=== PATIENT | female | born 1945 | race African-American/Black ===

== ENCOUNTER 2020-10-22 15:51 | Emergency (ER) | payer OTHER ==
[2020-10-22 16:51] LABS: Absolute Lymphocytes (CBC) 1.9 K/uL (0.7-4.9); Basophils % 1.4 % (0-1.3); Lymphocytes % 41.6 % (15.3-44.8); MPV 8.8 fL (7.6-11.3); RBC Red Blood Cell Count 4.18 M/uL (3.86-4.86)
[2020-10-22 17:07] LABS: BUN Blood Urea Nitrogen 14 mg/dL (7-18); Bicarbonate 26 mmol/L (21-32); Glucose Level 97 mg/dL (74-106); Potassium 3.8 mmol/L (3.5-5.1); Sodium Level 141 mmol/L (136-145); Troponin (Emerg Dept Use Only) < 0.02 ng/mL (0.0-0.045)
--- NOTE | 2020-10-22 17:15 | ER ---
Nurse's Notes [facility] Name: Michael Kimball Age: 74 yrs Sex: Female : 1945 Arrival Date: 10/22/2020 Time: 15:55 Bed 25 Private MD: Diagnosis: Essential (primary) hypertension Presentation: 10/22 15:59 Chief complaint: Patient states: "i took my blood pressure at home and it was 201/101. jd3 no other symptoms.". Coronavirus screen: At this time, the client does not indicate any symptoms associated with coronavirus-19. Ebola Screen: Patient negative for fever greater than or equal to 101.5 degrees Fahrenheit, and additional compatible Ebola Virus Disease symptoms. Initial Sepsis Screen: Does the patient meet any 2 criteria? No. Patient's initial sepsis screen is negative. Does the patient have a suspected source of infection? No. Patient's initial sepsis screen is negative. Risk Assessment: Do you want to hurt yourself or someone else? Patient reports no desire to harm self or others. Onset of symptoms was October 22, 2020. 15:59 Method Of Arrival: Ambulatory jd3 15:59 Acuity: ANGELINA 3 jd3 Triage Assessment: 17:22 General: Behavior is calm. zb Historical: - Allergies: 16:01 BP meds that end with "prils"; jd3 16:01 Cipro PO; jd3 16:01 Clindamycin; jd3 16:01 Codeine; jd3 16:01 Hydrocodone-Acetaminophen; jd3 16:01 Indomethacin; jd3 16:01 Naproxen; jd3 16:01 Prevpac; jd3 16:01 Propoxyphene N-Acetaminophen; jd3 16:04 Celecoxib; jd3 16:04 tramadol; jd3 - PMHx: 16:01 Diabetes - IDDM; Diabetes - NIDDM; High Cholesterol; Hypertension; blood clot; jd3 - Immunization history:: Adult Immunizations up to date. - Social history:: Smoking status: Patient denies any tobacco usage or history of. Screenin:52 Abuse screen: Denies threats or abuse. Denies injuries from another. Nutritional zb screening: No deficits noted. Tuberculosis screening: No symptoms or risk factors identified. Fall Risk None identified. Assessment: 16:51 General: Appears in no apparent distress. comfortable. General: Denies fever, feeling zb ill, fatigue, chills. Pain: Denies pain. Neuro: Level of Consciousness is awake, alert, obeys commands, Denies weakness blurred vision dizziness, numbness headache photophobia diplopia. Cardiovascular: Heart tones S1 S2 present Capillary refill < 3 seconds Patient's skin is warm and dry. Cardiovascular: Rhythm is sinus bradycardia. Respiratory: Airway is patent Respiratory effort is even, unlabored, Respiratory pattern is regular, symmetrical, Breath sounds are clear bilaterally. GI: No signs and/or symptoms were reported involving the gastrointestinal system. Patient currently denies nausea. : No signs and/or symptoms were reported regarding the genitourinary system. EENT: No signs and/or symptoms were reported regarding the EENT system. Derm: Skin is intact, is healthy with good turgor, Skin is dry, Skin is normal, Skin temperature is warm. Musculoskeletal: Circulation, motion, and sensation intact. Capillary refill < 3 seconds, in bilateral Range of motion: intact in all extremities. 17:12 Reassessment: ECP at bedside. Vital Signs: 16:01 BP 210 / 80; Pulse 58; Resp 17 S; Temp 97.7(TE); Pulse Ox 98% on R/A; Weight 86.18 kg j (R); Height 5 ft. 4 in. (162.56 cm) (R); Pain 0/10; 16:39 BP 211 / 77; Pulse 48; Resp 14; Pulse Ox 99% on R/A; dh4 17:05 BP 188 / 76; Pulse 46; Resp 16; Pulse Ox 100% on R/A; zb 16:01 Body Mass Index 32.61 (86.18 kg, 162.56 cm) d3 ED Course: 15:55 Patient arrived in ED. ds1 16:00 Triage completed. jd3 16:01 [facility]C [facility] kb 16:01 Chai Garces MD is Attending Physician. kb 16:02 Arm band placed on. jd3 16:27 Fela Ornelas RN is Primary Nurse. zb 16:52 Patient has correct armband on for positive identification. liquor gallery operator on. Pulse zb ox on. NIBP on. Door closed. Noise minimized. 16:52 Placed in gown. Bed in low position. Call light in reach. Side rails up X 1. zb 17:22 No provider procedures requiring assistance completed. Patient did not have IV access zb during this emergency room visit. Administered Medications: No medications were administered Outcome: 17:14 Discharge ordered by . [email or web address] 17:23 Discharged to home ambulatory. zb 17:23 Condition: stable 17:23 Discharge instructions given to patient, Instructed on discharge instructions, follow up and referral plans. Demonstrated understanding of instructions, follow-up care. 17:28 Patient left the ED. zb Signatures: Ethel Perez, PROP ATTENDANT-C PROP ATTENDANT-Ckb Rosaline Gresham ds1 Ezra Gallardo RN RN Mark Navarro 4 Fela Ornelas RN RN zb Corrections: (The following items were deleted from the chart) 16:03 15:59 Acuity: ANGELINA 4 jd3 [id number]
--- NOTE | 2020-10-22 17:16 | EDPHYS ---
Physician Documentation [facility] Name: Michael Kimball Age: 74 yrs Sex: Female : 1945 Arrival Date: 10/22/2020 Time: 15:55 Bed 25 Private MD: ED Physician Chai Garces HPI: 10/22 17:28 This 74 yrs old Black Female presents to ER via Ambulatory with complaints of High kb Blood Pressure. 17:28 The patient has elevated blood pressure and discovered this at home, with a home kb device. Onset: The symptoms/episode began/occurred 2 month(s) ago. Associated signs and symptoms: The patient has no apparent associated signs or symptoms. Severity of symptoms: At its worst the blood pressure was 200 mm Hg. The patient has not experienced similar symptoms in the past. The patient has not recently seen a physician. Pt reports her blood pressure has been fluctuating since 08/30/20. States she saw Dr Santiago on 10/02/20 and he changed her meds from once daily to twice daily. Denies chest pain, dizziness, shortness of breath, headache. States she has no symptoms of high blood pressure. Historical: - Allergies: 16:01 BP meds that end with "prils"; jd3 16:01 Cipro PO; jd3 16:01 Clindamycin; jd3 16:01 Codeine; jd3 16:01 Hydrocodone-Acetaminophen; jd3 16:01 Indomethacin; jd3 16:01 Naproxen; jd3 16:01 Prevpac; jd3 16:01 Propoxyphene N-Acetaminophen; jd3 16:04 Celecoxib; jd3 16:04 tramadol; jd3 - PMHx: 16:01 Diabetes - IDDM; Diabetes - NIDDM; High Cholesterol; Hypertension; blood clot; jd3 - Immunization history:: Adult Immunizations up to date. - Social history:: Smoking status: Patient denies any tobacco usage or history of. ROS: 17:27 Constitutional: Negative for fever, chills, and weight loss, Cardiovascular: Negative kb for chest pain, palpitations, and edema, Respiratory: Negative for shortness of breath, cough, wheezing, and pleuritic chest pain, Abdomen/GI: Negative for abdominal pain, nausea, vomiting, diarrhea, and constipation, MS/Extremity: Negative for injury and deformity, Skin: Negative for injury, rash, and discoloration, Neuro: Negative for headache, weakness, numbness, tingling, and seizure. Exam: 17:27 Constitutional: This is a well developed, well nourished patient who is awake, alert, kb and in no acute distress. Head/Face: Normocephalic, atraumatic. Eyes: Pupils equal round and reactive to light, extra-ocular motions intact. Lids and lashes normal. Conjunctiva and sclera are non-icteric and not injected. Cornea within normal limits. Periorbital areas with no swelling, redness, or edema. Chest/axilla: Normal chest wall appearance and motion. Nontender with no deformity. No lesions are appreciated. Cardiovascular: Regular rate and rhythm with a normal S1 and S2. No gallops, murmurs, or rubs. Normal PMI, no JVD. No pulse deficits. Respiratory: Lungs have equal breath sounds bilaterally, clear to auscultation and percussion. No rales, rhonchi or wheezes noted. No increased work of breathing, no retractions or nasal flaring. Abdomen/GI: Soft, non-tender, with normal bowel sounds. No distension or tympany. No guarding or rebound. No evidence of tenderness throughout. Skin: Warm, dry with normal turgor. Normal color with no rashes, no lesions, and no evidence of cellulitis. MS/ Extremity: Pulses equal, no cyanosis. Neurovascular intact. Full, normal range of motion. Neuro: Awake and alert, GCS 15, oriented to person, place, time, and situation. Cranial nerves II-XII grossly intact. Motor strength 5/5 in all extremities. Sensory grossly intact. Cerebellar exam normal. Normal gait. Vital Signs: 16:01 BP 210 / 80; Pulse 58; Resp 17 S; Temp 97.7(TE); Pulse Ox 98% on R/A; Weight 86.18 kg jd3 (R); Height 5 ft. 4 in. (162.56 cm) (R); Pain 0/10; 16:39 BP 211 / 77; Pulse 48; Resp 14; Pulse Ox 99% on R/A; dh4 17:05 BP 188 / 76; Pulse 46; Resp 16; Pulse Ox 100% on R/A; zb 16:01 Body Mass Index 32.61 (86.18 kg, 162.56 cm) jd3 MDM: 16:04 Patient medically screened. kb 17:27 Data reviewed: vital signs, nurses notes. Data interpreted: Pulse oximetry: on room air kb is 100 %. Interpretation: normal. Counseling: I had a detailed discussion with the patient and/or guardian regarding: the historical points, exam findings, and any diagnostic results supporting the discharge/admit diagnosis, the need for outpatient follow up, a family practitioner, to return to the emergency department if symptoms worsen or persist or if there are any questions or concerns that arise at home. 17:33 Data reviewed: I have discussed the patient's presentation/case with the attending Emergency Department Physician;. 10/22 16:23 Order name: Troponin (emerg Dept Use Only); Complete Time: 17:10 kb 10/22 16:23 Order name: CBC with Diff; Complete Time: 16:57 kb 10/22 16:23 Order name: EKG; Complete Time: 16:23 kb 10/22 16:23 Order name: EKG - Nurse/Tech; Complete Time: 16:40 kb 10/22 16:23 Order name: Basic Metabolic Panel; Complete Time: 17:10 kb Administered Medications: No medications were administered Disposition: 18:36 Co-signature as Attending Physician, Chai Garces MD. rn Disposition: 10/22/20 17:14 Discharged to Home. Impression: Essential (primary) hypertension. - Condition is Stable. - Discharge Instructions: Hypertension, [id number]. - Medication Reconciliation Form, Thank You Letter, Antibiotic Education, Prescription Opioid Use form. - Follow up: Emergency Department; When: As needed; Reason: Worsening of condition. Follow up: Private Physician; When: 2 - 3 days; Reason: Recheck today's complaints, Continuance of care, Re-evaluation by your physician. Signatures: Dispatcher [employer] Ethel Morrison, BALLISTICS EXPERT FORENSIC-C BALLISTICS EXPERT FORENSIC-Ckb Chai Garces MD MD rn Davies, Jonathon, RN RN jd3 Brown, Zipporah, RN RN zb Corrections: (The following items were deleted from the chart) 17:28 17:14 10/22/2020 17:14 Discharged to Home. Impression: Essential (primary) zb hypertension. Condition is Stable. Forms are Medication Reconciliation Form, Thank You Letter, Antibiotic Education, Prescription Opioid Use. Follow up: Emergency Department; When: As needed; Reason: Worsening of condition. Follow up: Private Physician; When: 2 - 3 days; Reason: Recheck today's complaints, Continuance of care, Re-evaluation by your physician. kb
--- NOTE | 2020-10-23 22:28 | EKG ---
Test Date: 2020-10-22 Test Time: 16:25:30 Manager Intermediate: YASMEEN MEASUREMENT RESULTS: Intervals: Rate: 45 DC: 186 QRSD: 80 QT: 404 QTc: 349 [place]: P: 60 DC: 186 QRS: -12 T: 23 INTERPRETIVE STATEMENTS: Sinus bradycardia Minimal voltage criteria for LVH, may be normal variant Borderline ECG Compared to ECG 07/07/2017 03:50:26 Left ventricular hypertrophy now present First degree AV block no longer present Electronically Signed On 10-23-20 22:25:36 COMPUTER APPLICATIONS ENGINEER by Juan Manuel Gordon
== END 2020-10-22 17:28 | disposition home or self-care (01) ==
LOC: ER 15:51
DX: I10 Essential (primary) hypertension (principal); Z88.1 Allergy status to other antibiotic agents; Z88.4 Allergy status to anesthetic agent; Z88.5 Allergy status to narcotic agent; Z88.6 Allergy status to analgesic agent; Z88.8 Allergy status to other drugs, medicaments and biological substances
CPT/HCPCS: 36415; 80048; 84484; 85025; 93005; 99284

== ENCOUNTER 2022-10-02 00:03 | Emergency (ER) | payer OTHER ==
--- OUTSIDE RECORDS SUMMARY | 2022-10-02 00:09 | XMS REPORT | Continuity of Care Document ---
:1945 Author Organization [facility] t Address [address] [place] [address] Care Team Providers Name Role Phone Asked, No Pcp Primary Care Physician Unavailable Charanjit RG, Kimberly Mayer Attending Clinician Lai RG, Darrius Feng Attending Clinician [phone] Ayad RG, Star Attending Clinician Shaikh IFRAH, Kvng Attending Clinician DARRIUS ASHFORD Admitting Clinician Unavailable MD KIMBERLY DONOHUE Admitting Clinician Unavailable Payers Payer Name Policy Type Policy Number Effective Date Expiration Date S ource Problems Condition Condition Condition Status Onset Resolution Last Treating Co mments Source Name Details Category Date Date Treatment Clinician Date Urinary Urinary Disease Active Methodi tract tract 1- infection infection 00:00: Hosp yoan without without 00 l hematuria, hematuria, site site unspecifie unspecifie d d Allergies, Adverse Reactions, Alerts Allergy Allergy Status Severity Reaction(s) Onset Inactive Treating Comm ents Source Name Type Date Date Clinician Iodinate Propensi Active Other (See Me thodi d ty to Comments) 11-20 Contrast adverse 00:00: Hospita Media reaction 00 l s to drug Nsaids Propensi Active Other (See Meth jenniffer (Non-Lon ty to Comments) 11-20 roidal adverse 00:00: Hospita Anti-Inf reaction 00 l lammator s to y Drug) drug Sulfamet Propensi Active Other (See Hi thodi hoxazole ty to Comments) 11-20 -Trimeth adverse 00:00: Hospita oprim reaction 00 l s to drug Hydrocod Propensi Active GI 2018-08 Pt can Method i one-Acet ty to Intolerance 08-[address] aminophe adverse 00:00: as long Hospit a n reaction 00 as she l s to takes drug nausea medicine before taking it. Indometh Propensi Active Other (See 2018-08 Hi thodi acin ty to Comments) 08-28 adverse 00:00: Hospita reaction 00 l s to drug Lansopra Propensi Active Other (See 2018-08 Hi thodi zole ty to Comments) 08-28 adverse 00:00: Hospita reaction 00 l s to drug Lisinopr Propensi Active Other (See 2018-08 Hi thodi il ty to Comments) 08-28 adverse 00:00: Hospita reaction 00 l s to drug Naproxen Propensi Active Other (See 2018-08 Hi thodi ty to Comments) 08-28 adverse 00:00: Hospita reaction 00 l s to drug Propoxyp Propensi Active Other (See 2018-08 Hi thodi hene ty to Comments) 08-28 adverse 00:00: Hospita reaction 00 l s to drug Tramadol Propensi Active Other (See 2018-08 Hi thodi ty to Comments) 08-28 adverse 00:00: Hospita reaction 00 l s to drug Celecoxi Propensi Active Other (See 2018-08 Hi thodi b ty to Comments) 08-28 adverse 00:00: Hospita reaction 00 l s to drug Ciproflo Propensi Active Other (See 2018-08 Hi thodi xacin ty to Comments) 08-28 adverse 00:00: Hospita reaction 00 l s to drug Clarithr Propensi Active Other (See 2018-08 Hi thodi omycin ty to Comments) 08-28 adverse 00:00: Hospita reaction 00 l s to drug Clindamy Propensi Active Other (See 2018-08 Hi thodi jeffrey ty to Comments) 08-28 adverse 00:00: Hospita reaction 00 l s to drug Codeine Propensi Active Other (See Met hodi ty to Comments) 05-08 adverse 00:00: Hospita reaction 00 l s to drug Family History Family Member Diagnosis Comments Start Date Stop Date Source Natural father [facility] Natural mother Cancer [facility] Natural mother Hypertension [facility] Social History Social Habit Start Date Stop Date Quantity Comments Source Alcohol intake 2022-09-05 2022-09-05 [facility] (finding) Tobacco use and 2022-09-04 2022-09-04 Smokeless tobacco [facility]user [facility] Sex Ass[birth year] At [birth year] [facility] Smoking Status Start Date Stop Date Source Never smoked tobacco [facility] Medications Ordered Filled Start Stop Current Ordering Indication Dosage Frequency Signature Comments Components Source Medication Medication Date Date Medication? Clinician (SIG) Name Name cycloSPORIN Yes 1[drp] Q.5D Administer Methodi E 1-[address] (RESTASIS) 16:01: both eyes Ho spita 0.05 % 02 2 (two) l ophthalmic times a emulsion day. magnesium Yes 400mg Q.5D Take 1 Metho di oxide 1-[address] (MAG-OX) 16:01: (400 mg Hospit a 400 mg 02 total) by l (241.3 mg mouth 2 magnesium) (two) tablet times a day. insulin Yes 40U QD Inject 40 Metho di degludec 1-[address] (TRESIBA 16:01: under the Hosp yoan FLEXTOUCH 02 skin l U-100 SUBQ) nightly. L. Yes 1{tbl} QD Take 1 Methodi acidophilus 1-[address] /pectin, 16:01: mouth Hospita citrus 02 daily. l (ACIDOPHILU S PROBIOTIC ORAL) ascorbic Yes 1000mg QD Take 2 Metho di acid, 1-[address] vitamin C, 16:01: (1,000 mg Ho spita (VITAMIN C) 02 total) by l 500 MG mouth tablet daily. cholecalcif 0 Yes 5000U QD Take 1 Met hodi emile, 1-[address] vitamin D3, 16:01: (5,000 Hosp yoan (Vitamin 02 Units l D3) 125 mcg total) by (5,000 mouth unit) daily. tablet cycloSPORIN 0 Yes 1[drp] Q.5D Administer Methodi E -[address] (RESTASIS) 16:01: both eyes Ho spita 0.05 % 02 2 (two) l ophthalmic times a emulsion day. magnesium 2022-0 Yes 400mg Q.5D Take 1 Metho di oxide 1-[address] (MAG-OX) 16:01: (400 mg Hospit a 400 mg 02 total) by l (241.3 mg mouth 2 magnesium) (two) tablet times a day. insulin 0 Yes 40U QD Inject 40 Metho di degludec 1-[address] (TRESIBA 16:01: under the Hosp yoan FLEXTOUCH 02 skin l U-100 SUBQ) nightly. L. 2022-0 Yes 1{tbl} QD Take 1 Methodi acidophilus 1-[address] /pectin, 16:01: mouth Hospita citrus 02 daily. l (ACIDOPHILU S PROBIOTIC ORAL) ascorbic 0 Yes 1000mg QD Take 2 Metho di acid, 1-[address] vitamin C, 16:01: (1,000 mg Ho spita (VITAMIN C) 02 total) by l 500 MG mouth tablet daily. cholecalcif 0 Yes 5000U QD Take 1 Met hodi emile, 1-[address] vitamin D3, 16:01: (5,000 Hosp yoan (Vitamin 02 Units l D3) 125 mcg total) by (5,000 mouth unit) daily. tablet FLAXSEED 2022-0 2022- No 1200mg QD Take 1,200 Methodi ORAL 16 -[address] 16:01: 00:00 mouth Hospita 02 :00 daily. l fluticasone 2022-0 2022- No 50ug QD 1 spray Me thodi propionate 16 -15 ([address] (FLONASE) 16:01: 00:00 total) by Ho spita 50 02 :00 Each Nare l mcg/actuati route on nasal daily. spray HYDROcodone 2022-0 2022- [place] [id number] 1{tbl} Q6H Take 1 Methodi -acetaminop 16 -[address] hen (XODOL) 16:01: 00:00 mouth Hosp yoan 7.5-300 mg 02 :00 every 6 l per tablet (six) hours as needed for moderate pain .acute pain. As per patient, she's not allergic to it. She needs to take Nausea medicine before taking it. Max Daily Amount: 4 tablets indomethaci 2022-0 2022- No 50mg Q.5D Take 1 Met hodi n (INDOCIN) 16 -[address] 50 MG 16:01: 00:00 (50 mg Hospita capsule 02 :00 total) by l mouth 2 (two) times a day with meals. traMADoL 2022-0 2022- [place] [id number] 50mg Q6H Take 1 Metho di (ULTRAM) 50 09-0715 tablet (50 s t mg tablet 16:01: 00:00 mg total) Ho spita 02 :00 by mouth l every 6 (six) hours as needed for moderate pain .acute pain. FLAXSEED 2022- No 1200mg QD Take 1,200 Methodi ORAL 09-07-[address] 16:01: 00:00 mouth Hospita 02 :00 daily. l fluticasone 2022-2022- No 50ug QD 1 spray Me thodi propionate 09-0715 ([address] (FLONASE) 16:01: 00:00 total) by Ho spita 50 02 :00 Each Nare l mcg/actuati route on nasal daily. spray HYDROcodone 2022-2022- [place] [id number] 1{tbl} Q6H Take 1 Methodi -acetaminop 09-[address] hen (XODOL) 16:01: 00:00 mouth Hosp yoan 7.5-300 mg 02 :00 every 6 l per tablet (six) hours as needed for moderate pain .acute pain. As per patient, she's not allergic to it. She needs to take Nausea medicine before taking it. Max Daily Amount: 4 tablets indomethaci 2022-0 2022- No 50mg Q.5D Take 1 Met hodi n (INDOCIN) 16 -[address] 50 MG 16:01: 00:00 (50 mg Hospita capsule 02 :00 total) by l mouth 2 (two) times a day with meals. traMADoL 2022-2022- [place] [id number] 50mg Q6H Take 1 Metho di (ULTRAM) 50 09-07 tablet (50 s t mg tablet 16:01: 00:00 mg total) Ho spita 02 :00 by mouth l every 6 (six) hours as needed for moderate pain .acute pain. vitamin B 2022-2022- No Take by Meth jenniffer complex (B 09-[address] COMPLEX 1 16:01: 00:00 Hospita ORAL) 02 :00 l flaxseed 2022-0 2022- No Methodi oiL oil 09-07 st 16:01: 00:00 Hospita 02 :00 l FLUTICASONE 3-0 2023- No into each Methodi PROPIONATE 09-[address] NASL 16:01: 00:00 Hospita 02 :00 l tiZANidine 2022-0 2023- No 4mg Q8H Take 1 Meth jenniffer (ZANAFLEX) 09-07 tablet (4 st 4 MG tablet 16:01: 00:00 mg total) Hospita 02 :00 by mouth l every 8 (eight) hours as needed for muscle spasms. vitamin B 0 2022- No Take by Meth jenniffer complex (B 09-[address] COMPLEX 1 16:01: 00:00 Hospita ORAL) 02 :00 l flaxseed 2022-0 2022- No Methodi oiL oil 09-07 st 16:01: 00:00 Hospita 02 :00 l FLUTICASONE 2023-0 2023- No into each Methodi PROPIONATE 09-[address] NASL 16:01: 00:00 Hospita 02 :00 l tiZANidine 3-0 2023- No 4mg Q8H Take 1 Meth jenniffer (ZANAFLEX) 09-07 tablet (4 st 4 MG tablet 16:01: 00:00 mg total) Hospita 02 :00 by mouth l every 8 (eight) hours as needed for muscle spasms. HYDROcodone 2022-0 2022- No 1{tbl} Q6H Take 1 M ethodi -acetaminop 09-07 tablet by mk (XODOL) 16:01: 00:00 mouth Hosp yoan 7.5-300 mg 02 :00 Every 6 l per tablet hours while awake as needed (RT). Max Daily Amount: 4 tablets HYDROcodone 2022-0 2022- No 1{tbl} Q6H Take 1 M ethodi -acetaminop 1-16 -[address] hen (XODOL) 16:01: 00:00 mouth Hosp yoan 7.5-300 mg 02 :00 Every 6 l per tablet hours while awake as needed (RT). Max Daily Amount: 4 tablets magnesium 0 Yes 400mg Q.5D Take 1 Metho di oxide 1-[address] (MAG-OX) 08:52: (400 mg Hospit a 400 mg 15 total) by l (241.3 mg mouth 2 magnesium) (two) tablet times a day. insulin 0 Yes 40U QD Inject 40 Metho di degludec 1-[address] (TRESIBA 08:52: under the Hosp yoan FLEXTOUCH 15 skin l U-100 SUBQ) nightly. traMADoL 0 Yes [id number] 50mg Q6H Take 1 Method i (ULTRAM) 50 1-15 tablet (50 st mg tablet 08:52: mg total) Hos brenda 15 by mouth l every 6 (six) hours as needed for moderate pain .acute pain. L. 0 Yes 1{tbl} QD Take 1 Methodi acidophilus 1-[address] /pectin, 08:52: mouth Hospita citrus 15 daily. l (ACIDOPHILU S PROBIOTIC ORAL) FLAXSEED 0 Yes 1200mg QD Take 1,200 M ethodi ORAL 1-[address] 08:52: mouth Hospita 15 daily. l fluticasone 0 Yes 50ug QD 1 spray Met hodi propionate 1-15 ([address] (FLONASE) 08:52: total) by Hos brenda 50 15 Each Nare l mcg/actuati route on nasal daily. spray HYDROcodone 2022-0 Yes [id number] 1{tbl} Q6H Take 1 M ethodi -acetaminop 1-[address] hen (XODOL) 08:52: mouth Hospi ta 7.5-300 mg 15 every 6 l per tablet (six) hours as needed for moderate pain .acute pain. As per patient, she's not allergic to it. She needs to take Nausea medicine before taking it. Max Daily Amount: 4 tablets ascorbic 0 Yes 1000mg QD Take 2 Metho di acid, 1-[address] vitamin C, 08:52: (1,000 mg Ho spita (VITAMIN C) 15 total) by l 500 MG mouth tablet daily. cholecalcif Yes 5000U QD Take 1 Met hodi emile, 1-[address] vitamin D3, 08:52: (5,000 Hosp yoan (Vitamin 15 Units l D3) 125 mcg total) by (5,000 mouth unit) daily. tablet indomethaci Yes 50mg Q.5D Take 1 Meth jenniffer n (INDOCIN) 1-[address] 50 MG 08:52: (50 mg Hospita capsule 15 total) by l mouth 2 (two) times a day with meals. cycloSPORIN Yes 1[drp] Q.5D Administer Methodi E -[address] (RESTASIS) 08:52: both eyes Ho spita 0.05 % 15 2 (two) l ophthalmic times a emulsion day. carvediloL 2022- Yes 12.5mg Q.5D Take 1 Me thodi (COREG) -15 02-[address] 12.5 MG 00:00: 05:59 (12.5 mg Hospi ta tablet 00 :00 total) by l mouth 2 (two) times a day for 30 days. fluticasone 2022- Yes 50ug QD 1 spray Me thodi propionate 15 -15 ([address] (FLONASE) 00:00: 05:59 total) by Ho spita 50 00 :00 Each Nare l mcg/actuati route on nasal daily for spray 30 days. famotidine 2022- Yes 20mg Q.5D Take 1 Meth jenniffer (Pepcid) 20 -15 02-15 tablet (20 s t MG tablet 00:00: 05:59 mg total) Ho spita 00 :00 by mouth 2 l (two) times a day for 30 days. carvediloL 2022- Yes 12.5mg Q.5D Take 1 Me thodi (COREG) -15 02-[address] 12.5 MG 00:00: 05:59 (12.5 mg Hospi ta tablet 00 :00 total) by l mouth 2 (two) times a day for 30 days. fluticasone 2022-0 2022- Yes 50ug QD 1 spray Me thodi propionate 09-06-15 ([address] (FLONASE) 00:00: 05:59 total) by Ho spita 50 00 :00 Each Nare l mcg/actuati route on nasal daily for spray 30 days. famotidine 2022-0 2022- Yes 20mg Q.5D Take 1 Meth jenniffer (Pepcid) 20 -07 10-15 tablet (20 s t MG tablet 00:00: 05:59 mg total) Ho spita 00 :00 by mouth 2 l (two) times a day for 30 days. carvediloL 2022-2022- Yes 12.5mg Q.5D Take 1 Me thodi (COREG) 09-06-[address] 12.5 MG 00:00: 05:59 (12.5 mg Hospi ta tablet 00 :00 total) by l mouth 2 (two) times a day for 30 days. fluticasone 2022-0 2022- Yes 50ug QD 1 spray Me thodi propionate 09-0615 ([address] (FLONASE) 00:00: 05:59 total) by Ho spita 50 00 :00 Each Nare l mcg/actuati route on nasal daily for spray 30 days. famotidine 2022-0 2022- Yes 20mg Q.5D Take 1 Meth jenniffer (Pepcid) 20 09-06-15 tablet (20 s t MG tablet 00:00: 05:59 mg total) Ho spita 00 :00 by mouth 2 l (two) times a day for 30 days. methylPREDN 2022-0 2022- Yes follow Met hodi ISolone 09-[address] (Medrol, 00:00: 05:59 directions Ho spita Wenceslao,) 4 mg 00 :00 l tablet methylPREDN 2022-0 2022- Yes follow Met hodi ISolone 09-[address] (Medrol, 00:00: 05:59 directions Ho spita Wenceslao,) 4 mg 00 :00 l tablet methylPREDN 2022-2022- No follow Met hodi ISolone 09-[address] (Medrol, 00:00: 05:59 directions Ho spita Wenceslao,) 4 mg 00 :00 l tablet vitamin B 2022- No Take by Meth jenniffer complex (B 09-[address] COMPLEX 1 03:10: 00:00 Hospita ORAL) 02 :00 l tiZANidine 2022- No 4mg Q8H Take 1 Meth jenniffer (ZANAFLEX) 09-05 tablet (4 st 4 MG tablet 03:09: 00:00 mg total) Hospita 32 :00 by mouth l every 8 (eight) hours as needed for muscle spasms. FLUTICASONE 2022- No into each Methodi PROPIONATE 09-[address] NASL 02:54: 00:00 Hospita 30 :00 l flaxseed 2022- No Methodi oiL oil 09-05 st 02:53: 00:00 Hospita 52 :00 l HYDROcodone 2022- No 1{tbl} Q6H Take 1 M ethodi -acetaminop 09-[address] hen (XODOL) 01:40: 00:00 mouth Hosp yoan 7.5-300 mg 55 :00 Every 6 l per tablet hours while awake as needed (RT). Max Daily Amount: 4 tablets methylPREDN 2022-0 Yes 4mg Take 1 Meth jenniffer ISolone 09-04 tablet (4 st (MEDROL 00:00: mg total) Hospi ta DOSEPAK) 4 00 by mouth. l mg tablet Follow schedule on package instructio ns. methylPREDN 2022-0 2022- No 4mg Take 1 Met hodi ISolone 09-04 tablet (4 st (MEDROL 00:00: 00:00 mg total) Hosp yoan DOSEPAK) 4 00 :00 by mouth. l mg tablet Follow schedule on package instructio ns. methylPREDN 2022-0 2022- No 4mg Take 1 Met hodi ISolone 09-04 tablet (4 st (MEDROL 00:00: 00:00 mg total) Hosp yoan DOSEPAK) 4 00 :00 by mouth. l mg tablet Follow schedule on package instructio ns. colchicine 2021-08 Yes .6mg QD Take 1 Metho di 0.6 mg 2-[address] tablet 00:00: (0.6 mg Hospita 00 total) by l mouth daily. colchicine 2021-08- No .6mg QD Take 1 Meth jenniffer 0.6 mg 2-02 -[address] tablet 00:00: 00:00 (0.6 mg Hospita 00 :00 total) by l mouth daily. colchicine 2021-08- No .6mg QD Take 1 Meth jenniffer 0.6 mg 2-09 23-[address] tablet 00:00: 00:00 (0.6 mg Hospita 00 :00 total) by l mouth daily. allopurinoL 2021-08 Yes 300mg QD Take 1 Met hodi (ZYLOPRIM) 09-[address] 300 MG 00:00: (300 mg Hospita tablet 00 total) by l mouth daily. ibandronate 2021-08- Yes 150mg Q30D Take 1 Me thodi (BONIVA) 09-[address] 150 mg 00:00: 05:59 (150 mg Hospita tablet 00 :00 total) by l mouth every 30 (thirty) days. Take in the morning with full glass of water on an empty stomach. No food, drink, meds or lying down for 60 mins after. ibandronate 2021-08- Yes 150mg Q30D Take 1 Me thodi (BONIVA) 09-[address] 150 mg 00:00: 05:59 (150 mg Hospita tablet 00 :00 total) by l mouth every 30 (thirty) days. Take in the morning with full glass of water on an empty stomach. No food, drink, meds or lying down for 60 mins after. ibandronate 2021-08- Yes 150mg Q30D Take 1 Me thodi (BONIVA) 09-[address] 150 mg 00:00: 05:59 (150 mg Hospita tablet 00 :00 total) by l mouth every 30 (thirty) days. Take in the morning with full glass of water on an empty stomach. No food, drink, meds or lying down for 60 mins after. allopurinoL 2021-08- No 300mg QD Take 1 Me thodi (ZYLOPRIM) 09-[address] 300 MG 00:00: 00:00 (300 mg Hospita tablet 00 :00 total) by l mouth daily. allopurinoL 2021-08- No 300mg QD Take 1 Me thodi (ZYLOPRIM) 09-[address] 300 MG 00:00: 00:00 (300 mg Hospita tablet 00 :00 total) by l mouth daily. predniSONE 2021-08- No TAKE 4 Meth jenniffer (DELTASONE) 09-21 TABLETS BY s t 5 mg tablet 00:00: 00:00 MOUTH FOR Hospita 00 :00 3DAYS, l THEN 3 TABS FOR 3 DAYS, 2 TABS FOR 3 DAYS, THEN 1 TAB FOR 3 DAYS. predniSONE 2021-08- No TAKE 4 Meth jenniffer (DELTASONE) 09-21 TABLETS BY s t 5 mg tablet 00:00: 00:00 MOUTH FOR Hospita 00 :00 3DAYS, l THEN 3 TABS FOR 3 DAYS, 2 TABS FOR 3 DAYS, THEN 1 TAB FOR 3 DAYS. predniSONE 2021-08- No TAKE 4 Meth jenniffer (DELTASONE) 09-21 TABLETS BY s t 5 mg tablet 00:00: 00:00 MOUTH FOR Hospita 00 :00 3DAYS, l THEN 3 TABS FOR 3 DAYS, 2 TABS FOR 3 DAYS, THEN 1 TAB FOR 3 DAYS. ondansetron 2021-08 Yes 4mg Q8H Take 1 Meth jenniffer (ZOFRAN) 4 1-28 tablet (4 st MG tablet 00:00: mg total) Hos brenda 00 by mouth l every 8 (eight) hours as needed for nausea or vomiting. ondansetron 2021-08 Yes 4mg Q8H Take 1 Meth jenniffer (ZOFRAN) 4 1-28 tablet (4 st MG tablet 00:00: mg total) Hos brenda 00 by mouth l every 8 (eight) hours as needed for nausea or vomiting. ondansetron 2021-08 Yes 4mg Q8H Take 1 Meth jenniffer (ZOFRAN) 4 1-28 tablet (4 st MG tablet 00:00: mg total) Hos brenda 00 by mouth l every 8 (eight) hours as needed for nausea or vomiting. warfarin 2021-08 Yes 4mg QD Take 1 Methodi (COUMADIN) 1-17 tablet (4 st 4 MG tablet 00:00: mg total) H ospita 00 by mouth l daily. warfarin 2021-08 Yes 4mg QD Take 1 Methodi (COUMADIN) 1-17 tablet (4 st 4 MG tablet 00:00: mg total) H ospita 00 by mouth l daily. warfarin 2021-08 Yes 4mg QD Take 1 Methodi (COUMADIN) 1-17 tablet (4 st 4 MG tablet 00:00: mg total) H ospita 00 by mouth l daily. carvediloL 2021-08 Yes 12.5mg Q.5D Take 1 Met hodi (COREG) 1-[address] 12.5 MG 00:00: (12.5 mg Hospit a tablet 00 total) by l mouth 2 (two) times a day with meals. carvediloL 2021-08- No 12.5mg Q.5D Take 1 Me thodi (COREG) 1-14 -[address] 12.5 MG 00:00: 00:00 (12.5 mg Hospi ta tablet 00 :00 total) by l mouth 2 (two) times a day with meals. carvediloL 2021-08- No 12.5mg Q.5D Take 1 Me thodi (COREG) 1-14 -[address] 12.5 MG 00:00: 00:00 (12.5 mg Hospi ta tablet 00 :00 total) by l mouth 2 (two) times a day with meals. pravastatin 2021-08 Yes 40mg QD Take 1 Meth jenniffer (PRAVACHOL) 0-25 tablet (40 st 40 mg 00:00: mg total) Hospita tablet 00 by mouth l every evening. pravastatin 2021-08 Yes 40mg QD Take 1 Meth jenniffer (PRAVACHOL) 0-25 tablet (40 st 40 mg 00:00: mg total) Hospita tablet 00 by mouth l every evening. pravastatin 2021-08 Yes 40mg QD Take 1 Meth jenniffer (PRAVACHOL) 0-25 tablet (40 st 40 mg 00:00: mg total) Hospita tablet 00 by mouth l every evening. spironolact 2021-08 Yes 25mg QD Take 1 Meth jenniffer one 0-24 tablet (25 st (ALDACTONE) 00:00: mg total) H ospita 25 MG 00 by mouth l tablet daily. spironolact 2021- Yes 25mg QD Take 1 Meth jenniffer one 0-24 tablet (25 st (ALDACTONE) 00:00: mg total) H ospita 25 MG 00 by mouth l tablet daily. spironolact 2021- Yes 25mg QD Take 1 Meth jenniffer one 0-24 tablet (25 st (ALDACTONE) 00:00: mg total) H ospita 25 MG 00 by mouth l tablet daily. NIFEdipine 2021-0 2022- No 30mg QD Take 1 Meth jenniffer ER 8-24 08-25 tablet (30 st (PROCARDIA- 00:00: 04:59 mg total) Hospita XL) 30 MG 00 :00 by mouth l 24 hr daily. tablet NIFEdipine 2021-0 2022- No 30mg QD Take 1 Meth jenniffer ER 8- 08-25 tablet (30 st (PROCARDIA- 00:00: 04:59 mg total) Hospita XL) 30 MG 00 :00 by mouth l 24 hr daily. tablet NIFEdipine 2021-0 2022- No 30mg QD Take 1 Meth jenniffer ER 8-24 08-25 tablet (30 st (PROCARDIA- 00:00: 04:59 mg total) Hospita XL) 30 MG 00 :00 by mouth l 24 hr daily. tablet furosemide 2021-0 Yes 40mg QD Take 1 Metho di (LASIX) 40 5-09 tablet (40 st mg tablet 00:00: mg total) Hos brenda 00 by mouth l daily. furosemide 2021-0 Yes 40mg QD Take 1 Metho di (LASIX) 40 5-09 tablet (40 st mg tablet 00:00: mg total) Hos brenda 00 by mouth l daily. furosemide 2021-0 Yes 40mg QD Take 1 Metho di (LASIX) 40 5-09 tablet (40 st mg tablet 00:00: mg total) Hos brenda 00 by mouth l daily. telmisartan 2020-0 Yes 80mg QD Take 1 Meth jenniffer (MICARDIS) 3-03 tablet (80 st 80 MG 00:00: mg total) Hospita tablet 00 by mouth l daily. telmisartan 2020-0 Yes 80mg QD Take 1 Meth jenniffer (MICARDIS) 3-03 tablet (80 st 80 MG 00:00: mg total) Hospita tablet 00 by mouth l daily. telmisartan Yes 80mg QD Take 1 Meth jenniffer (MICARDIS) 3-03 tablet (80 st 80 MG 00:00: mg total) Hospita tablet 00 by mouth l daily. Vital Signs Vital Name Observation Time Observation Value Comments Source Systolic blood 2022-09-06 13:56:42 118 mm[Hg] [facility] pressure Diastolic blood 2022-09-06 13:56:42 60 mm[Hg] [facility] pressure Heart rate 2022-09-06 13:56:42 61 /min [facility] Body temperature 2022-09-06 13:56:42 36.39 Radha [facility] Respiratory rate 2022-09-06 13:56:42 16 /min [facility] Oxygen saturation in 2022-09-06 13:56:42 100 /min [facility] Arterial blood by Pulse oximetry Body weight 2022-09-06 11:00:00 74.027 kg [facility] BMI 2022-09-06 11:00:00 28.01 kg/m2 [facility] Body height 2022-09-05 08:45:00 162.6 cm [facility] Procedures Procedure Date / Time Performing Clinician Source Performed COMPREHENSIVE METABOLIC 2022-09-06 12:10:00 Kvng Cleary [facility] PANEL ESTIMATED GFR 2022-09-06 12:10:00 Kvng Cleary spital MAGNESIUM LEVEL 2022-09-06 12:10:00 Kvng Cleary Ho spital PHOSPHORUS LEVEL 2022-09-06 12:10:00 Kvng Cleary ospital CBC WITH PLATELET AND 2022-09-06 10:27:00 [facility] DIFFERENTIAL PROTHROMBIN TIME WITH INR 2022-09-06 10:27:00 Star Lion [facility] CBC WITH PLATELET AND 2022-09-06 10:27:00 Star Lion [facility] DIFFERENTIAL ESTIMATED GFR 2022-09-06 10:19:00 Star Lion Ho spital POC GLUCOSE 2022-09-06 01:56:00 Kvng Cleary Ho spital POC GLUCOSE 2022-09-05 23:38:00 Kvng Cleary spital TROPONIN T 2022-09-05 18:06:00 [facility] spital POC GLUCOSE 2022-09-05 17:25:00 Kvng Clearytal US HEPATIC 2022-09-05 14:42:23 [facility] Ho spital POC GLUCOSE 2022-09-05 13:42:00 Kvng Cleary spital URIC ACID LEVEL 2022-09-05 12:34:00 Star Lion spital PHOSPHORUS LEVEL 2022-09-05 12:34:00 [facility] H ospital TROPONIN T 2022-09-05 12:34:00 [facility] spital COMPREHENSIVE METABOLIC 2022-09-05 12:34:00 Star Lion [facility] PANEL ESTIMATED GFR 2022-09-05 12:34:00 Star Lion spital MAGNESIUM LEVEL 2022-09-05 12:34:00 [facility] spital ESTIMATED GFR 2022-09-05 12:30:00 [facility] spital POC GLUCOSE 2022-09-05 09:16:00 [facility] spital ACUTE VIRAL HEPATITIS 2022-09-05 09:11:00 Star [facility] PANEL (HAV, HBV, HCV) AMMONIA LEVEL 2022-09-05 09:04:00 Star Lion spital CBC WITH PLATELET AND 2022-09-05 09:02:00 Star [facility] DIFFERENTIAL PROTHROMBIN TIME WITH INR 2022-09-05 09:02:00 Star Lion [facility] MANUAL DIFFERENTIAL 2022-09-05 09:02[facility] 2022-09-05 08:45:00 [facility] URINE CULTURE 2022-09-05 03:36:00 [facility] URINALYSIS 2022-09-05 03:36:00 [facility]OL[facility] 2022-09-05 02:52:00 Kimberly [facility] PANEL CREATINE KINASE, TOTAL 2022-09-05 02:52:00 [facility] TROPONIN, I-STAT 2022-09-05 02:52:00 [facility] B NATRIURETIC PEP, I-STAT 2022-09-05 02:52:00 Kimberly Donohue [facility] CBC WITH PLATELET AND 2022-09-05 02:52:00 [facility] DIFFERENTIAL AMYLASE LEVEL 2022-09-05 02:52:00 sada Kimberly [facility] ESTIMATED GFR 2022-09-05 02:52:00 Charanjit [facility] MANUAL DIFFERENTIAL 2022-09-05 02:52:00 Kimberly Donohue [facility] COVID-19, INFLUENZA A&B, 2022-09-05 02:50:00 Kimberly Donohue [facility] AND RSV QUALITATIVE RT-PCR XR CHEST 1 VW PORTABLE 2022-09-05 02:47:45 [facility]ARY 2022-09-05 02:30:54 Kimberly Donohue Met [facility] INTERPRETATION ECG 12-LEAD 2022-09-04 02:32:07 [facility] Plan of Care Planned Activity Planned Date Details Comments Source Future Scheduled 2022-10-02 SHINGLES VACCINES (1 Met [facility] Test 00:06:34 of 2) [code = SHINGLES VACCINES (1 of 2)] Future Scheduled 2022-10-02 HEPATITIS B VACCINES Met [facility] Test 00:06:34 (1 of 3 - Risk 3-dose series) [code = HEPATITIS B VACCINES (1 of 3 - Risk 3-dose series)] Future Scheduled 2022-10-02 65+ [facility]OC[facility] [facility] Test 00:06:34 VACCINE (2 - PPSV23 if available, else PCV20) [code = 65+ PNEUMOCOCCAL VACCINE (2 - PPSV23 if available, else PCV20)] Future Scheduled 2022-10-02 COVID-19 VACCINE (4 - [facility] Hospital Test 00:06:34 Booster for Moderna series) [code = COVID-19 VACCINE (4 - Booster for Moderna series)] Future Scheduled 2022-10-02 INFLUENZA VACCINE Method [facility] Hospital Test 00:06:34 [code = INFLUENZA VACCINE] Future Scheduled 2022-09-07 SHINGLES VACCINES (1 Met [facility] Test 02:23:11 of 2) [code = SHINGLES VACCINES (1 of 2)] Future Scheduled 2022-09-07 HEPATITIS B VACCINES Met [facility] Test 02:23:11 (1 of 3 - Risk 3-dose series) [code = HEPATITIS B VACCINES (1 of 3 - Risk 3-dose series)] Future Scheduled 2022-09-07 65+ [facility] 02:23:11 VACCINE (2 - PPSV23 if available, else PCV20) [code = 65+ PNEUMOCOCCAL VACCINE (2 - PPSV23 if available, else PCV20)] Future Scheduled 2022-09-07 COVID-19 VACCINE (4 - [facility] Hospital Test 02:23:11 Booster for Moderna series) [code = COVID-19 VACCINE (4 - Booster for Moderna series)] Future Scheduled 2022-09-07 INFLUENZA VACCINE Method [facility] Test 02:23:11 [code = INFLUENZA VACCINE] Future Scheduled 2022-09-06 SHINGLES VACCINES (1 Met [facility] Test 00:43:45 of 2) [code = SHINGLES VACCINES (1 of 2)] Future Scheduled 2022-09-06 65+ [facility] 00:43:45 VACCINE (2 - PPSV23 if available, else PCV20) [code = 65+ PNEUMOCOCCAL VACCINE (2 - PPSV23 if available, else PCV20)] Future Scheduled 2022-09-06 COVID-19 VACCINE (4 - [facility] Hospital Test 00:43:45 Booster for Moderna series) [code = COVID-19 VACCINE (4 - Booster for Moderna series)] Future Scheduled 2022-09-06 INFLUENZA VACCINE Method [facility] Test 00:43:45 [code = INFLUENZA VACCINE] Encounters Start End Encounter Admission Attending Care Care Encounter Source Date/Time Date/Time Type Type Clinicians Facility Department ID 2022-09-04 2022-09-06 Emergency Kimberly Donohue Moreno 1.2.840.1 [id number] Methodi 20:08:00 16:01:00 Darrius Ashford [id number] [id number] .8 2022-09-04 2022-09-06 Emergency Kimberly Donohue Moreno 1.2.840.1 [id number] Methodi 20:08:00 16:01:00 Darrius Ashford [id number] 185 [facility] [place] 3.430.2.7 [facility] .[id number] [facility] .8 2022-09-06 2022-09-06 Travel 1.2.840.1 [id number] [id number] Methodi 00:00:00 00:00:[address] 3.430.2.7 0.2.7.3.698 Ho spita .[id number] 084.8 l .8 2022-09-06 2022-09-06 Travel 1.2.840.1 1.2.853.837 [id number] Methodi 00:00:00 00:00:[address] 3.430.2.7 0.2.7.3.698 Ho spita .3.618340 084.8 l .8 2022-09-04 2022-09-04 Travel 1.2.840.1 1.2.521.569 [id number] Methodi 00:00:00 00:00:[address] 3.430.2.7 0.2.7.3.698 Ho spita .3.457778 084.8 l .8 2022-09-04 2022-09-04 Travel 1.2.840.1 1.2.701.737 [id number] Methodi 00:00:00 00:00:[address] 3.430.2.7 0.2.7.3.698 Ho spita .3.483039 084.8 l .8 Results Test Description Test Time Test Comments Results Result Comments Source POC glucose 2022-09-06 01:57:00 Test Item Value Reference Range Interpretation Comme nts POC glucose (test code = 190 mg/dL 65-99 H Ope rator Name: Lupe Yun [id number]) ([place])-PCADevi ce ID: [id number] able: RN Notified Lab Interpretation (test code = Abnormal 52077-0) [facility] [id number] 01:57:00 Test Item Value Reference Range Interpretation Comments POC glucose (test code = 190 mg/dL 65-99 H Ope rator Name: [id number]) Lupe Yun ([place])-PCADevi ce ID: [id number] able: RN Notified Lab Interpretation (test Abnormal code = 65630-1) [facility] [id number] 01:57:00 Test Item Value Reference Range Interpretation Comments POC glucose (test code = 190 mg/dL 65-99 H Ope rator Name: [id number]) Onrolly Yun ([place])-PCADevi ce ID: [id number] able: RN Notified Lab Interpretation (test Abnormal code = 49147-2) [facility] 12 [id number] 13:14:37 Test Item Value Reference Range Interpretation Comments Ventricular rate 83 (test code = 253) Atrial rate (test 83 code = 255) PA interval (test 178 code = 266) QRSD interval (test 86 code = 260) QT interval (test 340 code = 264) QTC interval (test 399 code = 265) P axis 1 (test code = 84 267) QRS axis 1 (test code -8 = 268) T wave axis (test 33 code = 270) EKG impression (test Normal sinus rhythm-Low code = 273) voltage QRS-Borderline ECG-No previous ECGs available- [address]2023-01-14 13:14:37 Test Item Value Reference Range Interpretation Comments Ventricular rate (test code = 253) Atrial rate (test code = 255) PA interval (test code = 266) QRSD interval (test code = 260) QT interval (test code = 264) QTC interval (test code = 265) P axis 1 (test code = 267) QRS axis 1 (test code = 268) T wave axis (test code = 270) EKG impression (test Normal sinus rhythm-Low code = 273) voltage QRS-Borderline ECG-No previous ECGs available- [address]2023-01-14 13:14:37 Test Item Value Reference Range Interpretation Comments Ventricular rate (test code = 253) Atrial rate (test code = 255) PA interval (test code = 266) QRSD interval (test code = 260) QT interval (test code = 264) QTC interval (test code = 265) P axis 1 (test code = 267) QRS axis 1 (test code = 268) T wave axis (test code = 270) EKG impression (test Normal sinus rhythm-Low code = 273) voltage QRS-Borderline ECG-No previous ECGs available- [facility] ED Preliminary Interpretation - Not an [id number] 02:30:54 Test Item Value Reference Range Interpretation Comments TERRANCE (test code = TERRANCE) Kimberly Donohue MD 09/05/2022 1:50 [facility] ED Preliminary Interpretation - Not an OrderPerformed by: Kimberly Donohue MDAuthorized by: Kimberly Donohue MD ECG reviewed by ED Physician in the absence of a supervisor webbing: yes Interpretation: Interpretation: abnormal Rate: ECG rate: 83 ECG rate assessment: normal Rhythm: Rhythm: sinus rhythm Ectopy: Ectopy: none QRS: QRS axis: Left QRS intervals: NormalConduction: Conduction: normal ST segments: ST segments: NormalT waves: T waves: normal Comments: PA 178. QRS 86. QTc 399. Lab Interpretation Abnormal (test code = 77197-2) [facility] Preliminary Interpretation - Not an [id number] 02:30:54 Test Item Value Reference Range Interpretation Comments TERRANCE (test code = TERRANCE) Kimberly Donohue MD 09/05/2022 1:50 [facility] ED Preliminary Interpretation - Not an OrderPerformed by: Kimberly Donohue MDAuthorized by: Kimberly Donohue MD ECG reviewed by ED Physician in the absence of a supervisor webbing: yes Interpretation: Interpretation: abnormal Rate: ECG rate: 83 ECG rate assessment: normal Rhythm: Rhythm: sinus rhythm Ectopy: Ectopy: none QRS: QRS axis: Left QRS intervals: NormalConduction: Conduction: normal ST segments: ST segments: NormalT waves: T waves: normal Comments: PA 178. QRS 86. QTc 399. Lab Interpretation Abnormal (test code = 92119-5) [facility] Preliminary Interpretation - Not an [id number] 02:30:54 Test Item Value Reference Range Interpretation Comments TERRANCE (test code = TERRANCE) Kimberly Donohue MD 09/05/2022 1:50 [facility] ED Preliminary Interpretation - Not an OrderPerformed by: Kimberly Donohue MDAuthorized by: Kimberly Donohue MD ECG reviewed by ED Physician in the absence of a supervisor webbing: yes Interpretation: Interpretation: abnormal Rate: ECG rate: 83 ECG rate assessment: normal Rhythm: Rhythm: sinus rhythm Ectopy: Ectopy: none QRS: QRS axis: Left QRS intervals: NormalConduction: Conduction: normal ST segments: ST segments: NormalT waves: T waves: normal Comments: PA 178. QRS 86. QTc 399. Lab Interpretation Abnormal (test code = 06538-1) [facility] [id number] 21:31:31 Test Item Value Reference Range Interpretation Comments SARS-CoV-2 (COVID-19) RNA Not detected [Presence] in Respiratory specimen by EFRAIN with probe detection (test code = 21927-0) Whether patient resides in a No congregate care setting (test code = 71681-3) Date and time of symptom onset Unknown (test code = 28341-6) Whether the patient was No hospitalized for condition of interest (test code = 45087-1) Whether the patient was admitted No to intensive care unit (ICU) for condition of interest (test code = 91885-7) Whether patient is employed in a No healthcare setting (test code = 08269-1) Whether the patient has symptoms No related to condition of interest (test code = 23406-6) status (test code = No 34635-5) [facility]
[2022-10-02] MEDS ORDERED: dexAMETHasone 10 MG/ML VIAL ONE (01:20)
[2022-10-02] MEDS ORDERED: COLCHICINE 0.6 MG TAB ONE (01:20)
[2022-10-02] MEDS ORDERED: KETOROLAC 30 MG/ML INJ ONE (01:20)
--- NOTE | 2022-10-02 02:26 | EDPHYS ---
Physician Documentation [facility] Name: Michael Kimball Age: 76 yrs Sex: Female : 1945 Arrival Date: 10/02/2022 Time: 00:32 Bed 7 Private MD: ED Physician Chai Garces HPI: 10/02 01:07 This 76 yrs old Black Female presents to ER via EMS with complaints of Foot Pain. rn 01:07 The patient presents with pain, that is acute. The complaints affect the left foot, rn right foot. Onset: The symptoms/episode began/occurred 1 week(s) ago. Modifying factors: The symptoms are alleviated by nothing, the symptoms are aggravated by movement. Associated signs and symptoms: Pertinent negatives: fever, weakness. Severity of symptoms: At their worst the symptoms were moderate, in the emergency department the symptoms are unchanged. The patient has experienced similar episodes in the past. The patient has not recently seen a physician. Pt with hx of gout, has had multiple gout attacks in past, reports pain in both feet for the last week. No trauma. No fever. NO skin changes. . Historical: - Allergies: 00:52 BP meds that end with "prils"; vc1 00:52 Celecoxib; vc1 00:52 Cipro PO; vc1 00:52 Clindamycin; vc1 00:52 Codeine; vc1 00:52 Hydrocodone-Acetaminophen; vc1 00:52 Indomethacin; vc1 00:52 Naproxen; vc1 00:52 Prevpac; vc1 00:52 Propoxyphene N-Acetaminophen; vc1 00:52 tramadol; vc1 00:52 Clarithromycin; vc1 - PMHx: 00:52 blood clot; Diabetes - IDDM; High Cholesterol; Diabetes - NIDDM; Hypertension; vc1 - Immunization history:: Adult Immunizations not up to date. - Social history:: Smoking status: Patient denies any tobacco usage or history of. - Family history:: not pertinent. - Hospitalizations: : No recent hospitalization is reported. ROS: 01:07 Constitutional: Negative for fever, chills, and weight loss, Eyes: Negative for injury, rn pain, redness, and discharge, Cardiovascular: Negative for chest pain, palpitations, and edema, Respiratory: Negative for shortness of breath, cough, wheezing, and pleuritic chest pain, Abdomen/GI: Negative for abdominal pain, nausea, vomiting, diarrhea, and constipation, Back: Negative for injury and pain, MS/Extremity: + pain in both feet Skin: Negative for injury, rash, and discoloration, Neuro: Negative for headache, weakness, numbness, tingling, and seizure. Exam: 01:07 Constitutional: This is a well developed, well nourished patient who is awake, alert, rn and in no acute distress. Cardiovascular: Regular rate and rhythm. No pulse deficits. Respiratory: No increased work of breathing, no retractions or nasal flaring. Skin: Warm, dry MS/ Extremity: Pulses equal, no cyanosis. Neurovascular intact. Full, normal range of motion. Equal circumference. No focal swelling or skin changes. Mild painful ROM bilateral great toes and ankles. Neuro: Awake and alert, GCS 15 Vital Signs: 00:50 BP 115 / 74; Pulse 86; Resp 17; Temp 98.5; Pulse Ox 100% ; Weight 73.94 kg; Height 5 vc1 ft. 4 in. (162.56 cm); Pain 10/10; 01:30 BP 114 / 53; Pulse 88; Resp 18; Pulse Ox 100% on R/A; vc1 01:30 BP 107 / 54; Pulse 83; Resp 17; Pulse Ox 99% ; vc1 00:50 Body Mass Index 27.98 (73.94 kg, 162.56 cm) vc1 MDM: 00:36 Patient medically screened. rn 02:23 Differential diagnosis: arthritis, gout. Data reviewed: vital signs, nurses notes, old rn medical records, and as a result, I will discharge patient. Counseling: I had a detailed discussion with the patient and/or guardian regarding: the historical points, exam findings, and any diagnostic results supporting the discharge/admit diagnosis, the need for outpatient follow up, to return to the emergency department if symptoms worsen or persist or if there are any questions or concerns that arise at home. Response to treatment: the patient's symptoms have markedly improved after treatment, and as a result, I will discharge patient. Special discussion: I discussed with the patient/guardian in detail that at this point there is no indication for admission to the hospital. It is understood, however, that if the symptoms persist or worsen the patient needs to return immediately for re-evaluation. ED course: Pt improved, sleeping comfortably, stable vitals, will dc home with pcp f/u and return precautions. Pt states usually steroid taper help.. 04:04 ED course: Pt ambulatory in room, feels much better. Family called and wants her urine rn checked for possible UTI. Ordered UA. Family concerned because has been exhibiting signs of dementia, stays with son who works long hours and they are concerned about her taking care of herself. Explained to them that would not be admitted for gout as she feels better and cannot be fixed with admission. . 04:17 ED course: Urine neg for UTI. Son here to pick her up, explained everything to son as rn well as brother. Pt becoming more elderly and experiencing the difficulties taking care of herself. Son states has home health come out but only once a week at this time. Recommend pcp f/u and for family to discuss custodial plans for their mother's care. . 10/02 04:13 Order name: Urine Dipstick-Ancillary EDMS Administered Medications: 01:22 Drug: Decadron (dexamethasone) 10 mg Route: IM; Site: left deltoid; vc1 02:49 Follow up: Response: No adverse reaction; Marked relief of symptoms; Pain is decreased vc1 01:23 Drug: Colcrys (colchicine) 1.2 mg Route: PO; vc1 02:50 Follow up: Response: No adverse reaction; Marked relief of symptoms; Pain is decreased vc1 01:23 Drug: Ketorolac 15 mg Route: IM; Site: right deltoid; vc1 02:50 Follow up: Response: No adverse reaction; Marked relief of symptoms; Pain is decreased vc1 Disposition Summary: 10/02/22 02:25 Discharge Ordered Location: Home rn Problem: chronic rn Symptoms: have improved rn Condition: Stable rn Diagnosis - Gout, unspecified rn - Idiopathic gout, left ankle and foot rn - Idiopathic gout, right ankle and foot rn Followup: rn - With: Private Physician - When: As needed - Reason: Recheck today's complaints, Re-evaluation by your physician Discharge Instructions: - Discharge Summary Sheet rn - Gout rn Forms: - Medication Reconciliation Form rn - Thank You Letter rn - 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
--- NOTE | 2022-10-02 02:26 | ER ---
Nurse's Notes [facility] Name: Michael Kimball Age: 76 yrs Sex: Female : 1945 Arrival Date: 10/02/2022 Time: 00:32 Bed 7 Private MD: Diagnosis: Gout, unspecified;Idiopathic gout, left ankle and foot;Idiopathic gout, right ankle and foot Presentation: 10/02 00:50 Chief complaint: Patient states: "Both my feet hurt, they feel just like it does when vc1 my gout is bothering me.". Coronavirus screen: Vaccine status: Patient reports receiving the 2nd dose of the covid vaccine. Plus booster; Moderna. Ebola Screen: Patient negative for fever greater than or equal to 101.5 degrees Fahrenheit, and additional compatible Ebola Virus Disease symptoms Patient denies exposure to infectious person. Patient denies travel to an Ebola-affected area in the 21 days before illness onset. No symptoms or risks identified at this time. Initial Sepsis Screen: Does the patient meet any 2 criteria? No. Patient's initial sepsis screen is negative. Does the patient have a suspected source of infection? No. Patient's initial sepsis screen is negative. Risk Assessment: Do you want to hurt yourself or someone else? Patient reports no desire to harm self or others. Onset of symptoms was September 27, 2022. 00:50 Method Of Arrival: [facility] vc1 00:50 Acuity: ANGELINA 4 vc1 Triage Assessment: 02:45 General: Appears in no apparent distress. uncomfortable, Behavior is calm, cooperative, vc1 appropriate for age. Pain: Complains of pain in right foot and left foot Pain does not radiate. Pain currently is 10 out of 10 on a pain scale. EENT: No deficits noted. No signs and/or symptoms were reported regarding the EENT system. Neuro: Level of Consciousness is awake, alert, obeys commands, Oriented to person, place, time, situation, Appropriate for age. Cardiovascular: No deficits noted. Respiratory: Airway is patent Respiratory effort is even, unlabored, Respiratory pattern is regular, symmetrical. GI: No deficits noted. No signs and/or symptoms were reported involving the gastrointestinal system. : No deficits noted. No signs and/or symptoms were reported regarding the genitourinary system. Derm: No deficits noted. No signs and/or symptoms reported regarding the dermatologic system. Musculoskeletal: Reports pain in right foot and left foot. Historical: - Allergies: 00:52 BP meds that end with "prils"; vc1 00:52 Celecoxib; vc1 00:52 Cipro PO; vc1 00:52 Clindamycin; vc1 00:52 Codeine; vc1 00:52 Hydrocodone-Acetaminophen; vc1 00:52 Indomethacin; vc1 00:52 Naproxen; vc1 00:52 Prevpac; vc1 00:52 Propoxyphene N-Acetaminophen; vc1 00:52 tramadol; vc1 00:52 Clarithromycin; vc1 - PMHx: 00:52 blood clot; Diabetes - IDDM; High Cholesterol; Diabetes - NIDDM; Hypertension; vc1 - Immunization history:: Adult Immunizations not up to date. - Social history:: Smoking status: Patient denies any tobacco usage or history of. - Family history:: not pertinent. - Hospitalizations: : No recent hospitalization is reported. Screenin:[facility] ED Fall Risk Assessment (Adult) History of falling in the last 3 months, vc1 including since admission No falls in past 3 months (0 pts) Confusion or Disorientation No (0 pts) Intoxicated or Sedated No (0 pts) Impaired Gait Yes (1 pt) Mobility Assist Device Used Yes (1 pt) Altered Elimination No (0 pt) Score/Fall Risk Level 0 - 2 = Low Risk Oriented to surroundings, Maintained a safe environment, Educated pt \\T\\ family on fall prevention, incl call for assistance when getting out of bed. Abuse screen: Denies threats or abuse. Nutritional screening: No deficits noted. Tuberculosis screening: No symptoms or risk factors identified. Assessment: 01:00 Reassessment: see triage assessment. vc1 02:48 Reassessment: Patient and/or family updated on plan of care and expected duration. Pain vc1 level reassessed. Patient is alert, oriented x 3, equal unlabored respirations, skin warm/dry/pink. Patient states feeling better. Patient states symptoms have improved. Vital Signs: 00:50 BP 115 / 74; Pulse 86; Resp 17; Temp 98.5; Pulse Ox 100% ; Weight 73.94 kg; Height 5 vc1 ft. 4 in. (162.56 cm); Pain 10/10; 01:30 BP 114 / 53; Pulse 88; Resp 18; Pulse Ox 100% on R/A; vc1 01:30 BP 107 / 54; Pulse 83; Resp 17; Pulse Ox 99% ; vc1 00:50 Body Mass Index 27.98 (73.94 kg, 162.56 cm) vc1 ED Course: 00:32 Patient arrived in ED. kl 00:36 Chai Garces MD is Attending Physician. rn 00:52 Triage completed. vc1 00:54 Arm band placed on left wrist. vc1 01:00 Patient has correct armband on for positive identification. Bed in low position. Pulse vc1 ox on. NIBP on. 01:22 Dayan Wellington RN is Primary Nurse. vc1 02:51 No provider procedures requiring assistance completed. Patient did not have IV access vc1 during this emergency room visit. 03:54 Primary Nurse role handed off by Dayan Wellington RN ds4 Administered Medications: 01:22 Drug: Decadron (dexamethasone) 10 mg Route: IM; Site: left deltoid; vc1 02:49 Follow up: Response: No adverse reaction; Marked relief of symptoms; Pain is decreased vc1 01:23 Drug: Colcrys (colchicine) 1.2 mg Route: PO; vc1 02:50 Follow up: Response: No adverse reaction; Marked relief of symptoms; Pain is decreased vc1 01:23 Drug: Ketorolac 15 mg Route: IM; Site: right deltoid; vc1 02:50 Follow up: Response: No adverse reaction; Marked relief of symptoms; Pain is decreased vc1 Medication: 02:51 VIS not applicable for this client. vc1 Outcome: 02:25 Discharge ordered by . rn 02:51 Condition: good vc1 02:51 Discharge instructions given to patient, Instructed on discharge instructions, follow up and referral plans. medication usage, Demonstrated understanding of instructions, follow-up care, medications, Prescriptions given X 1. 03:41 Discharged to home via wheelchair, with family. vc1 03:41 Patient left the ED. vc1 04:18 Patient left the ED. Signatures: Aliyah Tavera RN RN kl Nieto, Roman, MD MD rn Swanson, Donovan ds4 Mel Miles Dayan Wellington RN RN vc1
[2022-10-02 03:52] VITALS: TEMP 98.5
[2022-10-02 03:54] VITALS: BP 107/54; O2SAT 99
[2022-10-02 04:13] LABS: Urine Blood Negative (Negative); Urine Glucose Negative (Negative); Urine Protein Negative (Negative); Urine Specific Gravity 1.015 (1.005-1.030)
== END 2022-10-02 04:18 | disposition home or self-care (01) ==
LOC: ER 00:03
DX: M10.072 Idiopathic gout, left ankle and foot (principal); M10.071 Idiopathic gout, right ankle and foot; E11.9 Type 2 diabetes mellitus without complications; I10 Essential (primary) hypertension; Z88.1 Allergy status to other antibiotic agents; Z88.3 Allergy status to other anti-infective agents; Z88.5 Allergy status to narcotic agent; Z88.8 Allergy status to other drugs, medicaments and biological substances
CPT/HCPCS: 81003; 96372; 99284; J1100

== ENCOUNTER 2022-12-02 23:45 | Inpatient (IN) | payer OTHER ==
--- OUTSIDE RECORDS SUMMARY | 2022-12-02 23:49 | XMS REPORT | Continuity of Care Document ---
:1945 Author Organization [facility] t Address [address] [place] [address] Care Team Providers Name Role Phone Asked, No Pcp Primary Care Physician Unavailable Juanito Brown Attending Clinician Unavailable Charanjit RG, Kimberly Mayer Attending Clinician Lai RG, Darrius Feng Attending Clinician [phone] Ayad RG, Star Attending Clinician Shaikh IFRAH, Benigno Attending Clinician DARRIUS ASHFORD Admitting Clinician Unavailable [...] Drug) drug Sulfamet Propensi Active Other (See Me thodi hoxazole ty to Comments) 11-20 -Trimeth adverse 00:00: Hospita oprim reaction 00 l s to drug Hydrocod Propensi Active GI 2018-08 Pt can Method i one-Acet ty to Intolerance 08-[address] aminophe adverse 00:00: as long Hospit a n reaction 00 as she l s to takes drug nausea medicine before taking it. Indometh Propensi Active Other (See 2018-08 Nh thodi acin ty to Comments) 08-28 adverse 00:00: Hospita reaction 00 l s to drug Lansopra Propensi Active Other (See 2018-08 Nh thodi zole ty to Comments) 08-28 adverse 00:00: Hospita reaction 00 l s to drug Lisinopr Propensi Active Other (See 2018-08 Nh thodi il ty to Comments) 08-28 adverse 00:00: Hospita reaction 00 l s to drug Naproxen Propensi Active Other (See 2018-08 Nh thodi ty to Comments) 08-28 adverse 00:00: Hospita reaction 00 l s to drug Propoxyp Propensi Active Other (See 2018-08 Nh thodi hene ty to Comments) 08-28 adverse 00:00: Hospita reaction 00 l s to drug Tramadol Propensi Active Other (See 2018-08 Nh thodi ty to Comments) 08-28 adverse 00:00: Hospita reaction 00 l s to drug Celecoxi Propensi Active Other (See 2018-08 Nh thodi b ty to Comments) 08-28 adverse 00:00: Hospita reaction 00 l s to drug Ciproflo Propensi Active Other (See 2018-08 Nh thodi xacin ty to Comments) 08-28 adverse 00:00: Hospita reaction 00 l s to drug Clarithr Propensi Active Other (See 2018-08 Nh thodi omycin ty to Comments) 08-28 adverse 00:00: Hospita reaction 00 l s to drug Clindamy Propensi Active Other (See 2018-08 Nh thodi jeffrey ty to Comments) 08-28 adverse 00:00: Hospita reaction 00 l s to drug Codeine Propensi Active Other (See Met hodi ty to Comments) 9-16 st adverse 00:00: Hospita reaction 00 l s to drug Family History Family Member Diagnosis Comments Start Date Stop Date Source Natural father [facility] Natural mother Cancer [facility] Natural mother Hypertension [facility] Social History Social Habit Start Date Stop [...] Date Date Medication? Clinician (SIG) Name Name L. Yes 1{tbl} QD Take 1 Methodi [...] by (5,000 mouth unit) daily. tablet cycloSPORIN Yes 1[drp] Q.5D Administer Methodi E [...] 02 skin l U-100 SUBQ) nightly. L. 2023-0 Yes 1{tbl} QD Take 1 Methodi acidophilus 1-[address] /pectin, 16:01: mouth Hospita citrus 02 daily. l (ACIDOPHILU S PROBIOTIC ORAL) ascorbic 2023-0 Yes 1000mg QD Take 2 Metho di acid, 1-[address] vitamin C, 16:01: (1,000 mg Ho spita (VITAMIN C) 02 total) by l 500 MG mouth tablet daily. cholecalcif 2023-0 Yes 5000U QD Take 1 Met hodi emile, 1-[address] vitamin D3, 16:01: (5,000 Hosp yoan (Vitamin 02 Units l D3) 125 mcg total) by (5,000 mouth unit) daily. tablet cycloSPORIN 3-0 Yes 1[drp] Q.5D Administer Methodi E 1-[address] (RESTASIS) 16:01: both eyes Ho spita 0.05 % 02 2 (two) l ophthalmic times a emulsion day. magnesium 3-0 Yes 400mg Q.5D Take 1 Metho di oxide 1-[address] (MAG-OX) 16:01: (400 mg Hospit a 400 mg 02 total) by l (241.3 mg mouth 2 magnesium) (two) tablet times a day. insulin 3-0 Yes 40U QD Inject 40 Metho di degludec 1-[address] (TRESIBA 16:01: under the Hosp yoan FLEXTOUCH 02 skin l U-100 SUBQ) nightly. L. 2023-0 Yes 1{tbl} QD Take 1 Methodi acidophilus 1-[address] /pectin, 16:01: mouth Hospita citrus 02 daily. l (ACIDOPHILU S PROBIOTIC ORAL) ascorbic 2023-0 Yes 1000mg QD Take 2 Metho di acid, 1-[address] vitamin C, 16:01: (1,000 mg Ho spita (VITAMIN C) 02 total) by l 500 MG mouth tablet daily. cholecalcif 2023-0 Yes 5000U QD Take 1 Met hodi emile, 1-[address] vitamin D3, 16:01: (5,000 Hosp yoan (Vitamin 02 Units l D3) 125 mcg total) by (5,000 mouth unit) daily. tablet cycloSPORIN 0 Yes 1[drp] Q.5D Administer Methodi E 1-[address] (RESTASIS) 16:01: both eyes Ho spita 0.05 % 02 2 (two) l ophthalmic times a emulsion day. magnesium 0 Yes 400mg Q.5D Take 1 Metho di oxide 1-[address] (MAG-OX) 16:01: (400 mg Hospit a 400 mg 02 total) by l (241.3 mg mouth 2 magnesium) (two) tablet times a day. insulin Yes 40U QD Inject 40 Metho di degludec 1-[address] (TRESIBA 16:01: under the Hosp yoan FLEXTOUCH 02 skin l U-100 SUBQ) nightly. indomethaci 0 2022- No 50mg Q.5D Take 1 Met hodi n (INDOCIN) 09-07-[address] 50 MG 16:01: 00:00 (50 mg Hospita capsule 02 :00 total) by l mouth 2 (two) times a day with meals. traMADoL 2022- [place] [id number] 50mg Q6H Take 1 Metho di (ULTRAM) 50 09-07-15 tablet (50 s t mg tablet 16:01: 00:00 mg total) Ho spita 02 :00 by mouth l every 6 (six) hours as needed for moderate pain .acute pain. FLAXSEED 2022- No 1200mg QD Take 1,200 Methodi ORAL 09-07-[address] 16:01: 00:00 mouth Hospita 02 :00 daily. l fluticasone 2022- No 50ug QD 1 spray Me thodi propionate 09-07-15 ([address] (FLONASE) 16:01: 00:00 total) by Ho spita 50 02 :00 Each Nare l mcg/actuati route on nasal daily. spray HYDROcodone 2022-2022- [place] [id number] 1{tbl} Q6H Take 1 Methodi -acetaminop 09-07-[address] hen (XODOL) 16:01: 00:00 mouth Hosp yoan 7.5-300 mg 02 :00 every 6 l per tablet (six) hours as needed for moderate pain .acute pain. As per patient, she's not allergic to it. She needs to take Nausea medicine before taking it. Max Daily Amount: 4 tablets indomethaci 2022-2022- No 50mg Q.5D Take 1 Met hodi n (INDOCIN) 09-[address] 50 MG 16:01: 00:00 (50 mg Hospita capsule 02 :00 total) by l mouth 2 (two) times a day with meals. traMADoL 2022-2022- [place] [id number] 50mg Q6H Take 1 Metho di (ULTRAM) 50 09-0715 tablet (50 s t mg tablet 16:01: 00:00 mg total) Ho spita 02 :00 by mouth l every 6 (six) hours as needed for moderate pain .acute pain. FLAXSEED No 1200mg QD Take 1,200 Methodi ORAL 09-[address] 16:01: 00:00 mouth Hospita 02 :00 daily. l fluticasone No 50ug QD 1 spray Me thodi propionate 09-07 ([address] (FLONASE) 16:01: 00:00 total) by Ho spita 50 02 :00 Each Nare l mcg/actuati [place] [id number] 1{tbl} Q6H Take 1 Methodi -acetaminop 09-[address] hen (XODOL) 16:01: 00:00 mouth Hosp yoan 7.5-300 mg 02 :00 every 6 l per tablet (six) hours as needed for moderate pain .acute pain. As per patient, she's not allergic to it. She needs to take Nausea medicine before taking it. Max Daily Amount: 4 tablets indomethaci 2022-0 2022- No 50mg Q.5D Take 1 Met hodi n (INDOCIN) 09-[address] 50 MG 16:01: 00:00 (50 mg Hospita capsule 02 :00 total) by l mouth 2 (two) times a day with meals. traMADoL 2022-0 2022- No [id number] 50mg Q6H Take 1 Metho di (ULTRAM) 50 1-16 01-15 tablet (50 s t mg tablet 16:01: 00:00 mg total) Ho spita 02 :00 by mouth l every 6 (six) hours as needed for moderate pain .acute pain. FLAXSEED 2022- No 1200mg QD Take 1,200 Methodi ORAL 09-[address] 16:01: 00:00 mouth Hospita 02 :00 daily. l fluticasone 2022-0 2022- No 50ug QD 1 spray Me thodi propionate 09-07 ([address] (FLONASE) 16:01: 00:00 total) by Ho spita 50 02 :00 Each Nare l mcg/actuati route on nasal daily. spray HYDROcodone 2022- No [id number] 1{tbl} Q6H Take 1 Methodi -acetaminop 09-[address] hen (XODOL) 16:01: 00:00 mouth Hosp yoan 7.5-300 mg 02 :00 every 6 l per tablet (six) hours as needed for moderate pain .acute pain. As per patient, she's not allergic to it. She needs to take Nausea medicine before taking it. Max Daily Amount: 4 tablets vitamin B 2022- No Take by Meth jenniffer complex (B 09-[address] COMPLEX 1 16:01: 00:00 Hospita ORAL) 02 :00 l flaxseed 0 2022- No Methodi oiL oil 09-07 st 16:01: 00:00 Hospita 02 :00 l FLUTICASONE 0 2022- No into each Methodi PROPIONATE 09-[address] NASL 16:01: 00:00 Hospita 02 :00 l tiZANidine 0 2022- No 4mg Q8H Take 1 Meth jenniffer (ZANAFLEX) 09-07 tablet (4 st 4 MG tablet 16:01: 00:00 mg total) Hospita 02 :00 by mouth l every 8 (eight) hours as needed for muscle spasms. vitamin B 0 2022- No Take by Meth jenniffer complex (B 09-[address] COMPLEX 1 16:01: 00:00 Hospita ORAL) 02 :00 l flaxseed 2022-0 3- No Methodi oiL oil 09-07 st 16:01: [...] as needed for muscle spasms. vitamin B 2022- No Take by Meth jenniffer complex (B 09-[address] COMPLEX 1 16:01: 00:00 Hospita ORAL) 02 :00 l flaxseed 2022-0 2022- No Methodi oiL oil 09-07 st 16:01: 00:00 Hospita 02 :00 l FLUTICASONE 3-0 3- No into each Methodi PROPIONATE 09-[address] NASL 16:01: 00:00 Hospita 02 :00 l tiZANidine 2022-0 3- No 4mg Q8H Take 1 Meth jenniffer (ZANAFLEX) 09-07 tablet (4 st 4 MG tablet 16:01: 00:00 mg total) Hospita 02 :00 by mouth l every 8 (eight) hours as needed for muscle spasms. HYDROcodone 2022-2022- No 1{tbl} Q6H Take 1 M ethodi -acetaminop 09-[address] hen (XODOL) 16:01: 00:00 mouth Hosp yoan 7.5-300 mg 02 :00 Every 6 l per tablet hours while awake as needed (RT). Max Daily Amount: 4 tablets HYDROcodone 2022-0 2022- No 1{tbl} Q6H Take 1 M ethodi -acetaminop 09-[address] hen (XODOL) 16:01: 00:00 mouth Hosp yoan 7.5-300 mg 02 :00 Every 6 l per tablet hours while awake as needed (RT). Max Daily Amount: 4 tablets HYDROcodone 2022-0 3- No 1{tbl} Q6H Take 1 M ethodi -acetaminop 1-16 -[address] hen (XODOL) 16:01: 00:00 mouth Hosp yoan 7.5-300 mg 02 :00 Every 6 l per tablet hours while awake as needed (RT). Max Daily Amount: 4 tablets magnesium 2022-0 Yes 400mg Q.5D Take 1 Metho di oxide 1-[address] (MAG-OX) 08:52: (400 mg Hospit a 400 mg 15 total) by l (241.3 mg mouth 2 magnesium) (two) tablet times a day. insulin 0 Yes 40U QD Inject 40 Metho di degludec 1-[address] (TRESIBA 08:52: under the Hosp yoan FLEXTOUCH 15 skin l U-100 SUBQ) [place]. [place] [id number] 50mg Q6H Take 1 Method i (ULTRAM) 50 1-15 tablet (50 st mg tablet 08:52: mg total) Hos brenda 15 by mouth l every 6 (six) hours as needed for moderate pain .acute pain. L. 2022-0 Yes 1{tbl} QD Take 1 [...] on nasal daily. spray HYDROcodone 2022-0 Yes [id number] 1{tbl} Q6H Take 1 M ethodi -acetaminop 1-[address] hen (XODOL) 08:52: mouth Hospi ta 7.5-300 mg 15 every 6 l per tablet (six) hours as needed for moderate pain .acute pain. As per patient, she's not allergic to it. She needs to take Nausea medicine before taking it. Max Daily Amount: 4 tablets ascorbic 2022-0 Yes 1000mg QD Take 2 Metho di acid, 1-[address] vitamin C, 08:52: (1,000 mg Ho spita (VITAMIN C) 15 total) by l 500 MG mouth tablet daily. cholecalcif Yes 5000U QD Take 1 Met hodi emile, 1-[address] vitamin D3, 08:52: (5,000 Hosp yoan (Vitamin 15 Units l D3) 125 mcg total) by (5,000 mouth unit) daily. tablet indomethaci 0 Yes 50mg Q.5D Take 1 Meth jenniffer n (INDOCIN) 1-[address] 50 MG 08:52: (50 mg Hospita capsule 15 total) by l mouth 2 (two) times a day with meals. cycloSPORIN 0 Yes 1[drp] Q.5D Administer Methodi E 1-[address] (RESTASIS) 08:52: both eyes Ho spita 0.05 % 15 2 (two) l ophthalmic times a emulsion day. carvediloL 2022- Yes 12.5mg Q.5D Take 1 Me thodi (COREG) 1-15 02-[address] 12.5 MG 00:00: 05:59 (12.5 mg Hospi ta tablet 00 :00 total) by l mouth 2 (two) times a day for 30 days. fluticasone 2022- Yes 50ug QD 1 spray Me thodi propionate -15 02-15 ([address] (FLONASE) 00:00: 05:59 total) by Ho spita 50 00 :00 Each Nare l mcg/actuati route on nasal daily for spray 30 days. famotidine 2022- Yes 20mg Q.5D Take 1 Meth jenniffer (Pepcid) 20 1-15 02-15 tablet (20 s t MG tablet 00:00: 05:59 mg total) Ho spita 00 :00 by mouth 2 l (two) times a day for 30 days. carvediloL 2022-2022- Yes 12.5mg Q.5D Take 1 Me thodi (COREG) 1-15 02-[address] 12.5 MG 00:00: 05:59 (12.5 mg Hospi ta tablet 00 :00 total) by l mouth 2 (two) times a day for 30 days. fluticasone 2022- Yes 50ug QD 1 spray Me thodi propionate 1-15 02-15 ([address] (FLONASE) 00:00: 05:59 total) by Ho spita 50 00 :00 Each Nare l mcg/actuati route on nasal daily for spray 30 days. famotidine 2022- Yes 20mg Q.5D Take 1 Meth jenniffer (Pepcid) 20 1-15 02-15 tablet (20 s t MG tablet 00:00: 05:59 mg total) Ho spita 00 :00 by mouth 2 l (two) times a day for 30 days. carvediloL 2022- Yes 12.5mg Q.5D Take 1 Me thodi (COREG) 1-15 02-[address] 12.5 MG 00:00: 05:59 (12.5 mg Hospi ta tablet 00 :00 total) by l mouth 2 (two) times a day for 30 days. fluticasone 2022- Yes 50ug QD 1 spray Me thodi propionate 1-15 02-15 ([address] (FLONASE) 00:00: 05:59 total) by Ho spita 50 00 :00 Each Nare l mcg/actuati route on nasal daily for spray 30 days. famotidine 2022- Yes 20mg Q.5D Take 1 Meth jenniffer (Pepcid) 20 1-15 02-15 tablet (20 s t MG tablet 00:00: 05:59 mg total) Ho spita 00 :00 by mouth 2 l (two) times a day for 30 days. carvediloL 2022- No 12.5mg Q.5D Take 1 Me thodi (COREG) 1-15 02-[address] 12.5 MG 00:00: 05:59 (12.5 mg Hospi ta tablet 00 :00 total) by l mouth 2 (two) times a day for 30 days. fluticasone 2022-0 2022- No 50ug QD 1 spray Me thodi propionate 1-15 02-15 ([address] (FLONASE) 00:00: 05:59 total) by Ho spita 50 00 :00 Each Nare l mcg/actuati route on nasal daily for spray 30 days. famotidine 2022- No 20mg Q.5D Take 1 Meth jenniffer (Pepcid) 20 09-06 tablet (20 s t MG tablet 00:00: 05:59 mg total) Ho spita 00 :00 by mouth 2 l (two) times a day for 30 days. methylPREDN 2022- Yes follow Met hodi ISolone 09-[address] (Medrol, 00:00: 05:59 directions Ho spita Wenceslao,) 4 mg 00 :00 l tablet methylPREDN 2022- Yes follow Met hodi ISolone 09-[address] (Medrol, 00:00: 05:59 directions Ho spita Wenceslao,) 4 mg 00 :00 l tablet methylPREDN 2022- No follow Met hodi ISolone 09-[address] (Medrol, 00:00: 05:59 directions Ho spita Wenceslao,) 4 mg 00 :00 l tablet methylPREDN 2022- No follow Met hodi ISolone 09-06 package [...] 1{tbl} Q6H Take 1 M ethodi -acetaminop 14 - tablet by st hen (XODOL) 01:40: 00:00 mouth Hosp yoan 7.5-300 mg 55 :00 Every 6 l per tablet hours while awake as needed (RT). Max Daily Amount: 4 tablets methylPREDN 2023-0 Yes 4mg Take 1 Meth jenniffer ISolone -13 tablet (4 st (MEDROL 00:00: mg total) Hospi ta DOSEPAK) 4 00 by mouth. l mg tablet Follow schedule on package instructio ns. methylPREDN 2023-0 2023- No 4mg Take 1 Met hodi ISolone -04 09-15 tablet (4 st (MEDROL 00:00: 00:00 mg total) Hosp yoan DOSEPAK) 4 00 :00 by mouth. l mg tablet Follow schedule on package instructio ns. methylPREDN 2023-0 2023- No 4mg Take 1 Met hodi ISolone 09-04-15 tablet (4 st (MEDROL 00:00: 00:00 mg total) Hosp yoan DOSEPAK) 4 00 :00 by mouth. l mg tablet Follow schedule on package instructio ns. methylPREDN 3-0 3- No 4mg Take 1 Met hodi ISolone 09-04- tablet (4 st (MEDROL 00:00: 00:00 mg [...] total) by l mouth daily. ibandronate 2021-08- No 150mg Q30D Take 1 Me thodi (BONIVA) 09-[address] 150 mg 00:00: 05:59 (150 mg Hospita tablet 00 :00 total) by l mouth every 30 (thirty) days. Take in the morning with full glass of water on an empty stomach. No food, drink, meds or lying down for 60 mins after. ibandronate 2021-08- No 150mg Q30D Take 1 Me thodi (BONIVA) 09-[address] 150 mg 00:00: 05:59 (150 mg Hospita tablet 00 :00 total) by l mouth every 30 (thirty) days. Take in the morning with full glass of water on an empty stomach. No food, drink, meds or lying down for 60 mins after. ibandronate 2021-08- No 150mg Q30D Take 1 Me thodi (BONIVA) 09-[address] 150 mg 00:00: 05:59 (150 mg Hospita tablet 00 :00 total) by l mouth every 30 (thirty) days. Take in the morning with full glass of water on an empty stomach. No food, drink, meds or lying down for 60 mins after. ibandronate 2021-08- No 150mg Q30D Take 1 Me thodi (BONIVA) [...] (two) times a day with meals. carvediloL 2021-08 No 12.5mg Q.5D Take 1 Me thodi (COREG) -14 -[address] 12.5 MG 00:00: 00:00 (12.5 mg Hospi ta tablet 00 :00 total) by l mouth 2 (two) times a day with meals. carvediloL 2021-08- No 12.5mg Q.5D Take 1 Me thodi (COREG) -14 -[address] 12.5 MG 00:00: 00:00 (12.5 mg Hospi ta tablet 00 :00 total) by l mouth 2 (two) times a day with meals. carvediloL 2021-08 No 12.5mg Q.5D Take 1 Me thodi [...] 00 by mouth l tablet daily. spironolact 2021-08 Yes 25mg QD Take 1 Meth jenniffer one 0-24 tablet (25 st (ALDACTONE) 00:00: mg total) H ospita 25 MG 00 by mouth l tablet daily. spironolact 2021-08 Yes 25mg QD Take 1 Meth jenniffer one 0-24 tablet (25 st (ALDACTONE) 00:00: mg total) H ospita 25 MG 00 by mouth l tablet daily. spironolact 2021-08 Yes 25mg QD Take 1 Meth jenniffer one 0-24 tablet (25 st (ALDACTONE) 00:00: mg total) H ospita 25 MG 00 by mouth l tablet daily. NIFEdipine No 30mg QD Take 1 Meth jenniffer ER 8-24 08-25 tablet (30 st (PROCARDIA- 00:00: 04:59 mg total) Hospita XL) 30 MG 00 :00 by mouth l 24 hr daily. tablet NIFEdipine 2021-0 2022- No 30mg QD Take 1 Meth jenniffer ER 04-15-25 tablet (30 st (PROCARDIA- 00:00: 04:59 mg total) Hospita XL) 30 MG 00 :00 by mouth l 24 hr daily. tablet NIFEdipine 2021-0 2022- No 30mg QD Take 1 Meth jenniffer ER 04-15-25 tablet (30 st (PROCARDIA- 00:00: 04:59 mg total) Hospita XL) 30 MG 00 :00 by mouth l 24 hr daily. tablet NIFEdipine 2021-0 2022- No 30mg QD Take 1 Meth jenniffer ER 04-15-25 tablet (30 st (PROCARDIA- 00:00: 04:59 mg [...] brenda 00 by mouth l daily. telmisartan 2021-0 Yes 80mg QD Take 1 Meth jenniffer (MICARDIS) 3-03 tablet (80 st 80 MG 00:00: mg total) Hospita tablet 00 by mouth l daily. telmisartan 2021-0 Yes 80mg QD Take 1 Meth jenniffer (MICARDIS) 3-03 tablet (80 st 80 MG 00:00: mg total) Hospita tablet 00 by mouth l daily. telmisartan 2021-0 Yes 80mg QD Take 1 Meth jenniffer (MICARDIS) 3-03 tablet (80 st 80 MG 00:00: mg total) Hospita tablet 00 by mouth l daily. telmisartan 0 Yes 80mg QD Take 1 Meth jenniffer (MICARDIS) 3-03 tablet (80 st 80 MG 00:00: mg total) Hospita tablet 00 by mouth l daily. Vital Signs Vital Name Observation Time Observation Value Comments Source Systolic blood 2022-09-06 13:56:42 118 mm[Hg] [facility] pressure Diastolic blood 2022-09-06 13:56:42 60 mm[Hg] [facility] pressure Heart rate 2022-09-06 13:56:42 61 /min [facility] Body temperature 2022-09-06 13:56:42 36.39 Radha [facility] Respiratory rate 2022-09-06 13:56:42 16 /min [facility] Oxygen saturation in 2022-09-06 13:56:42 100 /min [facility] Arterial blood by Pulse oximetry Body weight 2022-09-06 11:00:00 74.027 kg [facility] BMI 2022-09-06 11:00:00 28.01 kg/m2 [facility] Body height 2022-09-05 08:45:00 162.6 cm [facility] Procedures Procedure Date / Time Performing Clinician Source Performed COMPREHENSIVE METABOLIC 2022-09-06 12:10:00 Benigno Cleary [facility] PANEL ESTIMATED GFR 2022-09-06 12:10:00 Benigno Cleary spital MAGNESIUM LEVEL 2022-09-06 12:10:00 Benigno Cleary spital PHOSPHORUS LEVEL 2022-09-06 12:10:00 Benigno Cleary ospital CBC WITH PLATELET AND 2022-09-06 10:27:00 [facility] DIFFERENTIAL PROTHROMBIN TIME WITH INR 2022-09-06 10:27:00 [facility] CBC WITH PLATELET AND 2022-09-06 10:27:00 [facility] DIFFERENTIAL ESTIMATED GFR 2022-09-06 10:19:00 [facility]ital POC GLUCOSE 2022-09-06 01:56:00 Benigno Cleary Ho spital POC GLUCOSE 2022-09-05 23:38:00 Benigno Cleary spital TROPONIN T 2022-09-05 18:06:00 [facility] POC GLUCOSE 2022-09-05 17:25:00 Benigno Cleary spital US HEPATIC 2022-09-05 14:42:23 [facility] spital POC GLUCOSE 2022-09-05 13:42:00 Benigno Cleary spital URIC ACID LEVEL 2022-09-05 12:34:00 [facility] spital PHOSPHORUS LEVEL 2022-09-05 12:34:00 [facility] TROPONIN T 2022-09-05 12:34:00 [facility]ital COMPREHENSIVE METABOLIC 2022-09-05 12:34:00 [facility] PANEL ESTIMATED GFR 2022-09-05 12:34:00 [facility] spital MAGNESIUM LEVEL 2022-09-05 12:34:00 [facility] ESTIMATED GFR 2022-09-05 12:30:00 [facility] POC GLUCOSE 2022-09-05 09:16:00 [facility] ACUTE VIRAL HEPATITIS 2022-09-05 09:11:00 [facility] PANEL (HAV, HBV, HCV) AMMONIA LEVEL 2022-09-05 09:04:00 [facility] CBC WITH PLATELET AND 2022-09-05 09:02:00 [facility] DIFFERENTIAL PROTHROMBIN TIME WITH INR 2022-09-05 09:02:00 [facility] MANUAL DIFFERENTIAL 2022-09-05 09:02:00 [facility] 2022-09-05 08:45:00 [facility]ital URINE CULTURE 2022-09-05 03:36:00 [facility] URINALYSIS 2022-09-05 03:36:00 [facility] COMPREHENSIVE METABOLIC 2022-09-05 02:52:00 [facility] CREATINE KINASE, TOTAL 2022-09-05 02:52:00 [facility] TROPONIN, I-STAT 2022-09-05 02:52:00 [facility] B NATRIURETIC PEP, I-STAT 2022-09-05 02:52:00 Kimberly tomlin [facility] CBC WITH PLATELET AND 2022-09-05 02:52:00 [facility] DIFFERENTIAL AMYLASE LEVEL 2022-09-05 02:52:00 [facility] ESTIMATED GFR 2022-09-05 02:52:00 sada [facility] MANUAL DIFFERENTIAL 2022-09-05 02:52:00 Kimberly Donohue [facility] COVID-19, INFLUENZA A&B, 2022-09-05 02:50:00 Kimberly Donohue [facility] AND RSV QUALITATIVE RT-PCR XR CHEST 1 VW PORTABLE 2022-09-05 02:47:45 sada [facility] ECG ED PRELIMINARY 2022-09-05 02:30:54 Kimberly Donohue [facility] INTERPRETATION ECG 12-LEAD 2022-09-04 02:32:07 [facility] Plan of Care Planned Activity Planned Date Details Comments Source Future Scheduled 2022-12-01 SHINGLES VACCINES (1 Met [facility] Test 12:04:45 of 2) [code = SHINGLES VACCINES (1 of 2)] Future Scheduled 2022-12-01 HEPATITIS B VACCINES Met [facility] Test 12:04:45 (1 of 3 - Risk 3-dose series) [code = HEPATITIS B VACCINES (1 of 3 - Risk 3-dose series)] Future Scheduled 2022-12-01 65+ [facility] 12:04:45 VACCINE (2 - PPSV23 if available, else PCV20) [code = 65+ PNEUMOCOCCAL VACCINE (2 - PPSV23 if available, else PCV20)] Future Scheduled 2022-12-01 COVID-19 VACCINE (4 - [facility] Test 12:04:45 Booster for Moderna series) [code = COVID-19 VACCINE (4 - Booster for Moderna series)] Future Scheduled 2022-12-01 INFLUENZA VACCINE Method [facility] Test 12:04:45 [code = INFLUENZA VACCINE] Future Scheduled 2022-10-02 SHINGLES VACCINES (1 Met [facility] Test 00:06:34 of 2) [code = SHINGLES VACCINES (1 of 2)] Future Scheduled 2022-10-02 HEPATITIS B VACCINES Met [facility] Test 00:06:34 (1 of 3 - Risk 3-dose series) [code = HEPATITIS B VACCINES (1 of 3 - Risk 3-dose series)] Future Scheduled 2022-10-02 65+ PNEUMOCOCCAL [facility] Test 00:06:34 VACCINE (2 - PPSV23 if available, else PCV20) [code = 65+ PNEUMOCOCCAL VACCINE (2 - PPSV23 if available, else PCV20)] Future Scheduled 2022-10-02 COVID-19 VACCINE (4 - [facility] Test 00:06:34 Booster for [employer] series) [code = COVID-19 VACCINE (4 - Booster for Modern[employer] series)] Future Scheduled 2022-10-02 INFLUENZA VACCINE Method [facility] Test 00:06:34 [code = INFLUENZA VACCINE] Future Scheduled 2022-09-07 SHINGLES VACCINES (1 Met [facility] Test 02:23:11 of 2) [code = SHINGLES VACCINES (1 of 2)] Future Scheduled 2022-09-07 HEPATITIS B VACCINES Met [facility] Test 02:23:11 (1 of 3 - Risk 3-dose series) [code = HEPATITIS B VACCINES (1 of 3 - Risk 3-dose series)] Future Scheduled 2022-09-07 65+ [facility]11 VACCINE (2 - PPSV23 if available, else PCV20) [code = 65+ PNEUMOCOCCAL VACCINE (2 - PPSV23 if available, else PCV20)] Future Scheduled 2022-09-07 COVID-19 VACCINE ([facility] - [facility] Test 02:23:11 Booster for Moderna series) [code = COVID-19 VACCINE (4 - Booster for Moderna series)] Future Scheduled 2022-09-07 INFLUENZA VACCINE [facility] Test 02:23:11 [code = INFLUENZA VACCINE] Future Scheduled 2022-09-06 SHINGLES VACCINES (1 Met [facility] Test 00:43:45 of 2) [code = SHINGLES VACCINES (1 of 2)] Future Scheduled 2022-09-06 65+ P[facility]UMOCOCCAL [facility] Test 00:43:45 VACCINE (2 - PPSV23 if available, else PCV20) [code = 65+ PNEUMOCOCCAL VACCINE (2 - PPSV23 if available, else PCV20)] Future Scheduled 2022-09-06 COVID-19 VACCINE (4 - [facility] Test 00:43:45 Booster for Moderna series) [code = COVID-19 VACCINE (4 - Booster for Moderna series)] Future Scheduled 2022-09-06 INFLUENZA VACCINE [facility] Test 00:43:45 [code = INFLUENZA VACCINE] Encounters Start End Encounter Admission Attending Care Care Encounter Source Date/Time Date/Time Type Type Clinicians Facility Department ID 2022 2022 Outpatient DESHAUN Brown [facility] [id number] [place] 11:23:00 11:23:00 [facility] [id number] [facility] 2022-09-04 2022-09-06 Emergency Kimberly Donohue 1.2.840.1 [id number] Methodi 20:08:00 16:01:00 Darrius Ashford 35949.1.1 185 [facility] 3.430.2.7 [facility] .[id number] l .8 2022-09-06 2022-09-06 Travel 1.2.840.1 1.2.359.095 [id number] Methodi 00:00:00 00:00:[address] 3.430.2.7 0.2.7.3.698 Ho spita .3.544502 084.8 l .8 2022-09-06 2022-09-06 Travel 1.2.840.1 1.2.351.121 [id number] Methodi 00:00:00 00:00:[address] 3.430.2.7 0.2.7.3.698 Ho spita .3.965324 084.8 l .8 2022-09-04 2022-09-06 Emergency CLEARY, 1.2.840.1 [id number] [place] 00:00:00 00:00:00 BENIGNO 45902.1.1 [address] .3.825342 .8 2022-09-04 2022-09-04 Travel 1.2.840.1 1.2.361.896 [id number] Methodi 00:00:00 00:00:[address] 3.430.2.7 0.2.7.3.698 Ho spita .3.663724 084.8 l .8 2022-09-04 2022-09-04 Travel 1.2.840.1 1.2.122.815 [id number] Methodi 00:00:00 00:00:[address] 3.430.2.7 0.2.7.3.698 Ho spita .3.777266 084.8 l .8 Results Test Description Test Time Test Comments Results Result Comments Source POC glucose 2022-09-06 01:57:00 Test Item Value Reference Range Interpretation Comme nts POC glucose (test code = 190 mg/dL 65-99 H Ope rator Name: Lupe Yun 11825-8) ([place])-PCADevi ce ID: [id number] able: RN Notified Lab Interpretation (test code = Abnormal 32968-8) [facility] [id number] 01:57:00 Test Item Value Reference Range Interpretation Comments POC glucose (test code = 190 mg/dL 65-99 H Ope rator Name: [id number]) Onrolly Yun ([place])-PCADevi ce ID: [id number] able: RN Notified Lab Interpretation (test Abnormal code = 17178-9) [facility] [id number] 01:57:00 Test Item Value Reference Range Interpretation Comments POC glucose (test code = 190 mg/dL 65-99 H Ope rator Name: [id number]) Onrolly Yun ([place])-PCADevi ce ID: [id number] able: RN Notified Lab Interpretation (test Abnormal code = 97113-9) [facility] [id number] 01:57:00 Test Item Value Reference Range Interpretation Comments POC glucose (test code = 190 mg/dL 65-99 H Ope rator Name: [id number]) Lupe Yun ([place])-PCADevi ce ID: [id number] able: RN Notified Lab Interpretation (test Abnormal code = 17764-0) [address]2023-01-14 13:14:37 Test Item Value Reference Range Interpretation Comments Ventricular rate 83 (test code = 253) Atrial rate (test 83 code = 255) MN interval (test 178 code = 266) QRSD [...] 273) voltage QRS-Borderline ECG-No previous ECGs available- [address]2023-01-14 13:14:37 Test Item Value Reference Range Interpretation Comments Ventricular rate (test code = 253) Atrial rate (test code = 255) MN interval (test code = 266) QRSD interval (test code = 260) QT interval (test code = 264) QTC interval (test code = 265) P axis 1 (test code = 267) QRS axis 1 (test code = 268) T wave axis (test code = 270) EKG impression (test Normal sinus rhythm-Low code = 273) voltage QRS-Borderline ECG-No previous ECGs available- [address]2023-01-14 13:14:37 Test Item Value Reference Range Interpretation Comments Ventricular rate (test code = 253) Atrial rate (test code = 255) MN interval (test code = 266) QRSD interval (test code = 260) QT interval (test code = 264) QTC interval (test code = 265) P axis 1 (test code = 267) QRS axis 1 (test code = 268) T wave axis (test code = 270) EKG impression (test Normal sinus rhythm-Low code = 273) voltage QRS-Borderline ECG-No previous ECGs available- [address]2023-01-14 13:14:37 Test Item Value Reference Range Interpretation Comments Ventricular rate 83 (test code = 253) Atrial rate (test 83 code = 255) MN interval (test 178 code = 266) QRSD [...] 273) voltage QRS-Borderline ECG-No previous ECGs available- [facility] ED Preliminary Interpretation - Not an [id number] 02:30:54 Test Item Value Reference Range Interpretation Comments TERRANCE (test code = TERRANCE) Kimberly Donohue MD 09/05/2022 1:50 [facility] ED Preliminary Interpretation - Not an OrderPerformed by: Kimberly Donohue MDAuthorized by: Kimberly Donohue MD ECG reviewed by ED Physician in the absence of a high school admissions representative: yes Interpretation: Interpretation: abnormal Rate: ECG rate: 83 ECG rate assessment: normal Rhythm: Rhythm: sinus rhythm Ectopy: Ectopy: none QRS: QRS axis: Left QRS intervals: NormalConduction: Conduction: normal ST segments: ST segments: NormalT waves: T waves: normal Comments: MN 178. QRS 86. QTc 399. Lab Interpretation Abnormal (test code = 57923-9) [facility] ED Preliminary Interpretation - Not an [id number] 02:30:54 Test Item Value Reference Range Interpretation Comments TERRANCE (test code = TERRANCE) Kimberly Donohue MD 09/05/2022 1:50 [facility] Preliminary Interpretation - Not an OrderPerformed by: Kimberly Donohue MDAuthorized by: Kimberly Donohue MD ECG reviewed by ED Physician in the absence of a high school admissions representative: yes Interpretation: Interpretation: abnormal Rate: ECG rate: 83 ECG rate assessment: normal Rhythm: Rhythm: sinus rhythm Ectopy: Ectopy: none QRS: QRS axis: Left QRS intervals: NormalConduction: Conduction: normal ST segments: ST segments: NormalT waves: T waves: normal Comments: MN 178. QRS 86. QTc 399. Lab Interpretation Abnormal (test code = 40071-1) [facility] ED Preliminary Interpretation - Not an [id number] 02:30:54 Test Item Value Reference Range Interpretation Comments TERRANCE (test code = TERRANCE) Kimberly Donohue MD 09/05/2022 1:50 [facility] Preliminary Interpretation - Not an OrderPerformed by: Kimberly Donohue MDAuthorized by: Kimberly Donohue MD ECG reviewed by ED Physician in the absence of a high school admissions representative: yes Interpretation: Interpretation: abnormal Rate: ECG rate: 83 ECG rate assessment: normal Rhythm: Rhythm: sinus rhythm Ectopy: Ectopy: none QRS: QRS axis: Left QRS intervals: NormalConduction: Conduction: normal ST segments: ST segments: NormalT waves: T waves: normal Comments: MN 178. QRS 86. QTc 399. Lab Interpretation Abnormal (test code = 87932-4) [facility] ED Preliminary Interpretation - Not an [id number] 02:30:54 Test Item Value Reference Range Interpretation Comments TERRANCE (test code = TERRANCE) Kimberly Donohue MD 09/05/2022 1:50 [facility] ED Preliminary Interpretation - Not an OrderPerformed by: Kimberly Donohue MDAuthorized by: Kimberly Donohue MD ECG reviewed by ED Physician in the absence of a high school admissions representative: yes Interpretation: Interpretation: abnormal Rate: ECG rate: 83 ECG rate assessment: normal Rhythm: Rhythm: sinus rhythm Ectopy: Ectopy: none QRS: QRS axis: Left QRS intervals: NormalConduction: Conduction: normal ST segments: ST segments: NormalT waves: T waves: normal Comments: MN 178. QRS 86. QTc 399. Lab Interpretation Abnormal (test code = 49128-9) [facility] [id number] 21:31:31 Test Item Value Reference Range Interpretation Comments SARS-CoV-2 (COVID-19) RNA Not detected [Presence] in Respiratory specimen by EFRAIN with probe detection (test code = 42730-0) Whether patient resides in a No congregate care setting (test code = 99847-6) Date and time of symptom onset Unknown (test code = 20244-5) Whether the patient was No hospitalized for condition of interest (test code = 29905-9) Whether the patient was admitted No to intensive care unit (ICU) for condition of interest (test code = 09222-4) Whether patient is employed in a No healthcare setting (test code = 03408-9) Whether the patient has symptoms No related to condition of interest (test code = 66328-4) status (test code = No 99629-2) [facility]
[2022-12-03] MEDS ORDERED: NA CHLORIDE 0.9% 1,000 ML ONE ×3 (00:24→09:07)
[2022-12-03 00:53] LABS: Renal Epithelial <5 /HPF (None Seen); Specific Gravity 1.017 (1.005-1.030); Urine Bacteria None Seen /HPF (<20); Urine Bilirubin NEGATIVE (Negative); Urine Blood Negative (Negative); Urine Clarity Clear (Clear); Urine Color Yellow (Yellow); Urine Glucose 1+ (Negative); Urine Mucus Slight /HPF (None Seen); Urine Protein 1+ (Negative); Urine RBC None Seen /HPF (None Seen); Urine Urobilinogen Normal (Normal); Urine pH 5.5 (5.0-7.0)
[2022-12-03 01:58] LABS: SARS-COV-2 RT PCR NEGATIVE (NEGATIVE)
[2022-12-03 02:04] LABS: Absolute Lymphocytes (CBC) 0.8 K/uL (0.7-4.9); Hematocrit 38.5 % (36.0-45.0); Lymphocytes % 5.2 % (15.3-44.8); MCV 94.3 fL (80-100); MPV 7.9 fL (7.6-11.3); RBC Red Blood Cell Count 4.08 M/uL (3.86-4.86)
[2022-12-03 02:07] LABS: Protime INR 1.06
[2022-12-03 02:17] LABS: Albumin 2.6 g/dL (3.4-5.0); Bilirubin Total 0.8 mg/dL (0.2-1.0); Potassium 4.2 mEq/L (3.5-5.1); Protein, Total 6.5 g/dL (6.4-8.2)
[2022-12-03] MEDS ORDERED: ACETAMINOPHEN 325 MG TABLET ONE (03:09)
[2022-12-03] MEDS ORDERED: AMIODARONE IN DEXTROSE,ISO-OSM 360 MG/200 ML BAG IV ONE (03:37)
[2022-12-03] MEDS ORDERED: D5W 0 ML IV ONE (03:37)
[2022-12-03] MEDS ORDERED: AMIODARONE HCL 150 MG/3 ML INJ IV ONE ×2 (03:37→04:16)
[2022-12-03] MEDS ORDERED: D5W 100 ML IV ONE (04:14)
[2022-12-03 04:17] LABS: Blood Morphology Comment NOT SEEN (NOT SEEN); Platelet Estimate ADEQ
[2022-12-03] MEDS ORDERED: ONDANSETRON 4 MG/2 ML VIAL IV PRN (05:37)
--- NOTE | 2022-12-03 05:39 | EDPHYS ---
Physician Documentation [facility] Name: Michael Kimball Age: 77 yrs Sex: Female : 1945 Arrival Date: 12/02/2022 Time: 23:46 Bed 25 Private MD: ED Physician Chai Garces HPI: 12/03 05:31 This 77 yrs old Black Female presents to ER via EMS with complaints of AMS. rn 05:31 The patient presents with confusion. Onset: The symptoms/episode began/occurred at an rn unknown time. Possible causes: unknown. Current symptoms: In the emergency department the patient's symptoms are unchanged from the initial presentation. It is unknown whether or not the patient has had similar symptoms in the past. EMS reports AMS and fever, unknown onset, son reported sore throat. No known trauma. + cough and congestion. . Historical: - Allergies: 12/02 23:49 BP meds that end with "prils"; mb9 23:49 Celecoxib; mb9 23:49 Cipro PO; mb9 23:49 Clarithromycin; mb9 23:49 Clindamycin; mb9 23:49 Codeine; mb9 23:49 Hydrocodone-Acetaminophen; mb9 23:49 Indomethacin; mb9 23:49 Naproxen; mb9 23:49 Prevpac; mb9 23:49 Propoxyphene N-Acetaminophen; mb9 23:49 tramadol; mb9 - PMHx: 23:49 blood clot; Hypertension; High Cholesterol; Diabetes - NIDDM; mb9 - PSHx: 23:49 Unable to Obtain; mb9 - Immunization history:: Adult Immunizations up to date. - Social history:: Smoking status: unknown. - Family history:: not pertinent. - Hospitalizations: : No recent hospitalization is reported. ROS: 12/03 05:31 Constitutional: + fever ENT: + sore throat and congestion Cardiovascular: Negative for rn chest pain, palpitations, and edema, Respiratory: + cough Abdomen/GI: Negative for abdominal pain, nausea, vomiting, diarrhea, and constipation, MS/Extremity: Negative for injury and deformity, Skin: Negative for injury, rash, and discoloration, Neuro: Negative for headache, numbness, tingling, and seizure. Exam: 05:31 Constitutional: This is a well developed, well nourished patient who is awake, slow to rn respond, oriented to person and place, not time. Head/Face: Normocephalic, atraumatic. ENT: dry MM, stron gag reflex, unable to visualize posterior pharynx. + green nasal discharge. No stridor. Neck: No masses or crepitus. Cardiovascular: Tachycardic, irregular. No pulse deficits. Respiratory: + moderate tachypnea Abdomen/GI: Soft, non-tender Skin: Warm, dry MS/ Extremity: Pulses equal, no cyanosis. Neuro: Awake, slow to respond, not oriented to time. Moves all 4 ext with 4/5 strength throughout. Vital Signs: 12/02 23:46 BP 128 / 68; Pulse 157; Resp 24; Temp 102.3(O); Pulse Ox 95% on 2 lpm NC; Weight 65.77 mb9 kg; Height 5 ft. 6 in. ; 12/03 00:36 BP 128 / 80; Pulse 139; Resp 24; Temp 100.5; Pulse Ox 100% on 2 lpm NC; mb9 03:15 BP 106 / 65; Pulse 140; Resp 21 S; Pulse Ox 100% on 2 lpm NC; lg3 04:26 BP 95 / 62; Pulse 107; Resp 25; Pulse Ox 99% on 2 lpm NC; jb4 04:46 BP 113 / 63; Pulse 116; Resp 26; Temp 97(TE); Pulse Ox 98% on 2 lpm NC; jb4 05:30 BP 114 / 79; Pulse 104; Resp 15; Pulse Ox 97% on 2 lpm NC; jb4 06:37 BP 92 / 68; Pulse 112; Resp 26; Pulse Ox 98% on 2 lpm NC; jb4 08:25 BP 111 / 77; Pulse 97; Resp 18; Pulse Ox 99% on R/A; rs5 12/02 23:46 Body Mass Index 23.40 (65.77 kg, 167.64 cm) mb9 MDM: 12/02 23:49 Patient medically screened. rn 12/03 05:35 Differential Diagnosis: pneumonia, UTI, volume depletion, strep/covid/flu/pharyngeal rn abscess/STAFF CERTIFIED NURSE MIDWIFE. Data reviewed: vital signs, nurses notes, lab test result(s), EKG, radiologic studies, CT scan, plain films, and as a result, I will admit patient. Consideration of Admission/Observation Patient was admitted/placed on observation. Escalation of care including admission/observation considered. I considered the following discharge prescriptions or medication management in the emergency department Medications were administered in the Emergency Department. See MAR. Independent interpretation of the following test(s) in the Emergency Department EKG: See my EKG interpretation above X-Ray: My interpretation is CXR neg for pneumothorax or pneumonia. Counseling: I had a detailed discussion with the patient and/or guardian regarding: the historical points, exam findings, and any diagnostic results supporting the discharge/admit diagnosis, lab results, radiology results, the need for further work-up and treatment in the hospital. Response to treatment: the patient's symptoms have mildly improved after treatment. ED course: Pt more alert and seems improved, HR has improved, CT shows parapharyngeal inflammation and acute sinusitis. No acute findings in chest/abd/pelvis/urine. . 12/02 23:50 Order name: Blood Culture Adult (2) rn 12/02 23:50 Order name: CBC with Diff; Complete Time: 04:57 12/02 23:50 Order name: CMP; Complete Time: 02:57 12/02 23:50 Order name: Lactate w/ 2H reflex if indic.; Complete Time: 02:57 12/02 23:50 Order name: Protime (+inr); Complete Time: 02:57 12/02 23:50 Order name: Ptt, Activated; Complete Time: 02:57 rn 12/02 23:50 Order name: Urinalysis w/ reflexes; Complete Time: 01:27 rn 12/02 23:50 Order name: COVID-19/FLU A+B; Complete Time: 02:57 rn 12/03 02:07 Order name: Manual Differential; Complete Time: 04:57 EDMS 12/03 03:01 Order name: Strep; Complete Time: 19:07 rn 12/03 05:45 Order name: Basic Metabolic Panel EDMS 12/03 05:45 Order name: Basic Metabolic Panel EDMS 12/03 05:45 Order name: Basic Metabolic Panel EDMS 12/03 05:45 Order name: CBC with Automated Diff EDMS 12/03 05:45 Order name: CBC with Automated Diff EDMS 12/03 05:45 Order name: CBC with Automated Diff EDMS 12/03 05:45 Order name: Lipid Profile EDMS 12/03 05:45 Order name: Lipid Profile; Complete Time: 19:07 EDMS 12/03 05:45 Order name: Troponin High Sensitivity EDMS 12/03 05:45 Order name: Troponin High Sensitivity; Complete Time: 19:07 EDMS 12/03 05:45 Order name: Troponin High Sensitivity; Complete Time: 19:07 EDMS 12/03 05:45 Order name: T4 Free; Complete Time: 19:07 EDMS 12/03 05:45 Order name: Thyroid Stimulating Hormone; Complete Time: 19:07 EDMS 12/03 09:11 Order name: Glucose, Ancillary Testing; Complete Time: 19: EDMS 12/03 10:09 Order name: Hemoglobin A1c; Complete Time: 19:07 EDVT 12/03 12:56 Order name: Glucose, Ancillary Testing; Complete Time: 19: EDMS 12/03 19:15 Order name: Glucose, Ancillary Testing EDMS 12/03 21:54 Order name: Glucose, Ancillary Testing EDMS 12/04 07:42 Order name: Throat Culture EDVT 12/04 08:18 Order name: Glucose, Ancillary Testing EDVT 12/02 23:50 Order name: Chest Single View XRAY; Complete Time: 19:07 rn 12/03 03:02 Order name: CT Soft Tissue Neck W/contr; Complete Time: 19:07 rn 12/03 03:02 Order name: CT Chest, Abdomen, Pelvis - W/Contrast; Complete Time: 19:07 rn 12/03 05:45 Order name: Echo with Doppler EDMS 12/03 05:45 Order name: Thyroid Para Parotid Gland; Complete Time: 19:07 EDVT 12/02 23:50 Order name: EKG; Complete Time: 23:51 rn 12/03 05:44 Order name: 60g Consistent Carbohydrate (ADA 1800/2000) EDVT 12/02 23:50 Order name: Accucheck; Complete Time: 00:40 rn 12/02 23:50 Order name: Cardiac monitoring; Complete Time: 00:22 rn 12/02 23:50 Order name: Cath; Complete Time: 00:36 rn 12/02 23:50 Order name: EKG - Nurse/Tech; Complete Time: 00:40 rn 12/02 23:50 Order name: IV Saline Lock - Large Bore; Complete Time: 00:17 rn 12/02 23:50 Order name: Labs collected and sent; Complete Time: 00:17 rn 12/02 23:50 Order name: O2 Per Protocol; Complete Time: 00:17 rn 12/02 23:50 Order name: O2 Sat Monitoring; Complete Time: 00:17 rn 12/02 23:50 Order name: Vital Signs; Complete Time: 00:17 rn Administered Medications: 00:21 Drug: NS 0.9% IV 1000 ml Route: IV; Rate: 1000 ml; Site: right antecubital; [facility] 03:03 CANCELLED (Duplicate Order): NS 0.9% IV 500 ml IV at bolus once rn 03:14 Drug: Acetaminophen PO 650 mg Route: PO; lg3 03:14 Drug: NS 0.9% IV 1000 ml Route: IV; Rate: 1000 ml; Site: left antecubital; 3 04:00 Follow up: Response: No adverse reaction; IV Status: Completed infusion; IV Intake: jb4 1000ml 04:15 Drug: amiodarone IVPB 150 mg Volume: 100 ml; Route: IVPB; Infused Over: 10 mins; Site: [facility] right antecubital; 04:25 Follow up: IV Status: Completed infusion; IV Intake: 100ml jb4 04:46 Drug: amiodarone IVPB 900 mg, D5W IV 500 ml Route: IVPB; Rate: 1 mg/min; Site: right [facility] hand; 06:02 Drug: vancoMYCIN IVPB 1 grams Route: IVPB; Infused Over: 2 hrs; Site: right antecubital;4 06:02 Drug: Doxycycline PO 100 mg Route: PO; jb4 Disposition: 05:35 Critical Care:. rn Disposition Summary: 12/03/22 05:38 Hospitalization Ordered Hospitalization Status: Inpatient Admission rn Provider: Randell Pierce rn Condition: Stable rn Problem: new rn Symptoms: have improved rn Bed/Room Type: Standard rn Location: Telemetry/MedSurg (Inpatient)(12/04/22 09:33) Room Assignment: [facility](12/04/22 09:33) Diagnosis - Persistent atrial fibrillation rn - Altered mental status, unspecified rn - Acute sinusitis, unspecified rn - Acute pharyngitis, unspecified rn - Dehydration rn Forms: - Medication Reconciliation Form rn - SBAR form fraternity adviser time excluding procedures: 05:35 Critical care time: Bedside Care: 35 minutes, Family Intervention: 5 minutes. Total rn time: 40 minutes Signatures: Dispatcher [employer] EDChai Riggs MD MD rn Smirch, Shelby RN RN Tim Sam, JORGE-C SUPERVISOR [employer]ECT[employer]-Cla1 Lauren Hutton RN RN Fritz Millan RN RN jb4 Jina Cruz, RN RN lg3 Krystina Hays, RN RN mb9 Corrections: (The following items were deleted from the chart) 03:03 03:00 NS 0.9% IV 500 ml IV at bolus once ordered. rn rn 20:39 05:38 Telemetry/MedSurg (Inpatient) rn cg 20:39 05:38 rn cg 12/04 09:33 12/03 20:39 [facility] 12/04 09:33 12/03 20:39 ERHOLD- [facility]
--- NOTE | 2022-12-03 05:39 | ER ---
Nurse's Notes [facility] Name: Michael Kimball Age: 77 yrs Sex: Female : 1945 Arrival Date: 12/02/2022 Time: 23:46 Bed 25 Private MD: Diagnosis: Persistent atrial fibrillation;Altered mental status, unspecified;Acute sinusitis, unspecified;Acute pharyngitis, unspecified;Dehydration Presentation: 12/02 23:46 Chief complaint: EMS states: "Son says pts sore throat started Wednesday and is getting mb9 worse. She's usually able to walk and talk, but she's confused and very weak. Pt has fever of 102.7 and gave 1 g of Tylenol and 1.2 L of NS. BGL was 305 and HR 166". Coronavirus screen: Client presents with at least one sign or symptom that may indicate coronavirus-19. Standard/surgical mask placed on the client. Ebola Screen: No symptoms or risks identified at this time. Initial Sepsis Screen: Does the patient meet any 2 criteria? RR > 20 per min. Temp <36.0*C (96.8*F)) or > 38.3*C (100.9*F). Altered Mental Status. HR > 90 bpm. Yes Does the patient have a suspected source of infection? Yes:. Risk Assessment: Do you want to hurt yourself or someone else? Patient reports no desire to harm self or others. Onset of symptoms was November 29, 2022. 23:46 Method Of Arrival: EMS: [facility] mb9 23:46 Acuity: ANGELINA 3 mb9 Triage Assessment: 12/03 07:00 General: Appears in no apparent distress. comfortable, Behavior is calm, cooperative. db Historical: - Allergies: 12/02 23:49 BP meds that end with "prils"; mb9 23:49 Celecoxib; mb9 23:49 Cipro PO; mb9 23:49 Clarithromycin; mb9 23:49 Clindamycin; mb9 23:49 Codeine; mb9 23:49 Hydrocodone-Acetaminophen; mb9 23:49 Indomethacin; mb9 23:49 Naproxen; mb9 23:49 Prevpac; mb9 23:49 Propoxyphene N-Acetaminophen; mb9 23:49 tramadol; mb9 - PMHx: 23:49 blood clot; Hypertension; High Cholesterol; Diabetes - NIDDM; mb9 - PSHx: 23:49 Unable to Obtain; mb9 - Immunization history:: Adult Immunizations up to date. - Social history:: Smoking status: unknown. - Family history:: not pertinent. - Hospitalizations: : No recent hospitalization is reported. Screenin/13 03:15 [facility] ED Fall Risk Assessment (Adult) History of falling in the last 3 months, lg3 including since admission No falls in past 3 months (0 pts). Abuse screen: Denies threats or abuse. Denies injuries from another. Nutritional screening: No deficits noted. Tuberculosis screening: No symptoms or risk factors identified. Assessment: 00:00 General: Appears in no apparent distress. uncomfortable, Behavior is calm, cooperative. jb4 Pain: Denies pain. Neuro: Level of Consciousness is awake, alert, obeys commands, Oriented to person, place. Cardiovascular: Patient's skin is warm and dry. Respiratory: Airway is patent Respiratory effort is even, unlabored, Respiratory pattern is regular, symmetrical. GI: No signs and/or symptoms were reported involving the gastrointestinal system. : No signs and/or symptoms were reported regarding the genitourinary system. EENT: Reports soar throat. Derm: Skin is intact, Skin is pink, warm \\T\\ dry. Musculoskeletal: Circulation, motion, and sensation intact. Range of motion: intact in all extremities. 00:03 Reassessment: First set of blood cultures sent. mb9 00:13 Reassessment: second set of blood cultures sent. mb9 03:15 General: Appears in no apparent distress. comfortable, Behavior is calm, cooperative. lg3 Pain: Denies pain. Neuro: Felipe Agitation-Sedation Scale (RASS): -1 Drowsy Level of Consciousness is awake, alert, obeys commands, Oriented to person, place. Cardiovascular: No deficits noted. Respiratory: Airway is patent Respiratory effort is even, unlabored, Respiratory pattern is regular, symmetrical. 04:30 Reassessment: Pt is resting in bed with eyes closed, respirations are even and jb4 unlabored with no s/s of pain or distress noted. 05:30 Reassessment: Pt remains resting in bed with eyes closed, respirations are even and jb4 unlabored with no s/s of pain or distress noted. 06:37 Reassessment: Patient appears in no apparent distress at this time. No changes from jb4 previously documented assessment. Patient and/or family updated on plan of care and expected duration. Pain level reassessed. 19:46 Reassessment: Patient and/or family updated on plan of care and expected duration. Pain ea2 level reassessed. Pt is resting with eyes closed, respirations even and unlabored. Family at bedside. 21:20 General: Jose (son) [phone]. as6 Vital Signs: 12/02 23:46 BP 128 / 68; Pulse 157; Resp 24; Temp 102.3(O); Pulse Ox 95% on 2 lpm NC; Weight 65.77 mb9 kg; Height 5 ft. 6 in. ; 12/03 00:36 BP 128 / 80; Pulse 139; Resp 24; Temp 100.5; Pulse Ox 100% on 2 lpm NC; mb9 03:15 BP 106 / 65; Pulse 140; Resp 21 S; Pulse Ox 100% on 2 lpm NC; lg3 04:26 BP 95 / 62; Pulse 107; Resp 25; Pulse Ox 99% on 2 lpm NC; jb4 04:46 BP 113 / 63; Pulse 116; Resp 26; Temp 97(TE); Pulse Ox 98% on 2 lpm NC; jb4 05:30 BP 114 / 79; Pulse 104; Resp 15; Pulse Ox 97% on 2 lpm NC; jb4 06:37 BP 92 / 68; Pulse 112; Resp 26; Pulse Ox 98% on 2 lpm NC; jb4 08:25 BP 111 / 77; Pulse 97; Resp 18; Pulse Ox 99% on R/A; rs5 12/02 23:46 Body Mass Index 23.40 (65.77 kg, 167.64 cm) mb9 ED Course: 12/02 23:46 Patient arrived in ED. mb9 23:46 Arm band placed on. mb9 23:49 Chai Garces MD is Attending Physician. rn 23:49 Triage completed. 9 12/03 00:00 Inserted saline lock: 20 gauge in right forearm, using aseptic technique. mb9 00:17 Blood Culture Adult (2) Sent. mb9 00:17 CBC with Diff Sent. mb9 00:17 CMP Sent. mb9 00:17 Ptt, Activated Sent. mb9 00:18 Placed in gown. Bed in low position. Call light in reach. Side rails up X 1. Client mb9 placed on continuous cardiac and pulse oximetry monitoring. NIBP monitoring applied. monitor car operator on. 00:18 Protime (+inr) Sent. mb9 00:18 Maintain EMS IV. Dressing intact. Good blood return noted. Site clean \\T\\ dry. Gauge \\T\\ mb 9 site: 18g right AC. 00:30 Gallegos cath inserted, using sterile technique, 16 Fr., by ok, balloon inflated, to mb9 gravity drainage, urine specimen collected. returned cloudy urine. Patient tolerated well. 00:36 COVID-19/FLU A+B Sent. mb9 00:37 EKG done, by ED staff, reviewed by Chai Garces MD. mb9 00:49 Chest Single View XRAY In Process Unspecified. EDMS 03:15 Door closed. Noise minimized. Warm blanket given. Family accompanied patient. lg3 03:23 Fritz Goodman, RN is Primary Nurse. jb4 03:58 CT Soft Tissue Neck W/contr In Process Unspecified. EDMS 03:59 CT Chest, Abdomen, Pelvis - W/Contrast In Process Unspecified. EDMS 05:37 Randell Pierce MD is Hospitalizing Provider. rn 19:51 No provider procedures requiring assistance completed. Patient admitted, IV remains in ea2 place. Administered Medications: 00:21 Drug: NS 0.9% IV 1000 ml Route: IV; Rate: 1000 ml; Site: right antecubital; jb4 03:03 CANCELLED (Duplicate Order): NS 0.9% IV 500 ml IV at bolus once rn 03:14 Drug: Acetaminophen PO 650 mg Route: PO; lg3 03:14 Drug: NS 0.9% IV 1000 ml Route: IV; Rate: 1000 ml; Site: left antecubital; lg3 04:00 Follow up: Response: No adverse reaction; IV Status: Completed infusion; IV Intake: jb4 1000ml 04:15 Drug: amiodarone IVPB 150 mg Volume: 100 ml; Route: IVPB; Infused Over: 10 mins; Site: jb4 right antecubital; 04:25 Follow up: IV Status: Completed infusion; IV Intake: 100ml jb4 04:46 Drug: amiodarone IVPB 900 mg, D5W IV 500 ml Route: IVPB; Rate: 1 mg/min; Site: right jb4 hand; 06:02 Drug: vancoMYCIN IVPB 1 grams Route: IVPB; Infused Over: 2 hrs; Site: right antecubital;jb4 06:02 Drug: Doxycycline PO 100 mg Route: PO; jb4 Medication: 00:18 VIS not applicable for this client. mb9 Intake: 04:00 IV: 1000ml; Total: 1000ml. jb4 04:25 IV: 100ml; Total: 1100ml. jb4 Outcome: 05:38 Decision to Hospitalize by Provider. rn 21:08 Admitted to ER Hold. Please see [facility] for further documentation. ea2 21:08 Condition: stable 21:08 Instructed on the need for admit. 12/04 10:42 Patient left the ED. Signatures: Dispatcher [employer] EDMS Chai Garces MD MD rn Baxter, Heather, RN RN Fritz Goodman RN RN jb4 Jina Cruz RN RN lg3 Juan Perkins RN RN as6 Justine Hall RN Krystina Rowell RN RN mb9 Jesse Tam rs5 Pastora Casey RN RN ea2 Corrections: (The following items were deleted from the chart) 12/03 04:47 04:26 BP 95 / 62; Pulse 107bpm; Resp 25bpm; Pulse Ox 99% RA; jb4 jb4 04:47 04:46 BP 113 / 63; Pulse 116bpm; Resp 26bpm; Pulse Ox 98% 2 lpm Nasal Cannula; jb4 jb4
[2022-12-03] MEDS ORDERED: VANCOMYCIN 1 GM in NA CHLORIDE 0.9% 250 ML IVPB SCH (05:41)
[2022-12-03] MEDS ORDERED: DOXYCYCLINE 100 MG CAP PO ONE (05:53)
[2022-12-03] MEDS ORDERED: NA CHLORIDE 0.9% 250 ML ONE (05:53)
[2022-12-03] MEDS ORDERED: VANCOMYCIN 1 GM/VIAL ONE (05:53)
[2022-12-03] MEDS ORDERED: AMIODARONE HCL 900 MG in Dextrose 5%-Water 482 ML IV SCH (06:00)
--- NOTE | 2022-12-03 06:06 | P.HP ---
Certification for Inpatient Patient admitted to: Inpatient With expected LOS: >2 Midnights Patient will require the following post-hospital care: None Practitioner: I am a practitioner with admitting privileges, knowledge of patient current condition, hospital course, and medical plan of care. Services: Services provided to patient in accordance with Admission requirements found in Title 42 Section 412.3 of the Code of Federal Regulations Patient History Date of Service: 12/03/22 Reason for admission: Afib RVR, Sepsis History of Present Illness: 77-year-old female with history of insulin-dependent diabetes, hypertension, gout presents the emergency department for fevers, weakness, sore throat. Family reports that she began complaining of sore throat that started on Wednesday of this week and has been progressively getting worse since then. She was evaluated in the emergency department her labs were significant for leukocytosis white blood cell count of 15.2 platelets 135 5% bands creatinine 1.44 GFR 37 glucose 251 urinalysis negative for UTI COVID/influenza negative CT soft tissue neck was performed which revealed mild left peritonsillar and parapharyngeal edema which may represent soft tissue infection. No discrete mass identified. Paranasal sinus and nasal mucosal thickening with air-fluid levels in the ethmoid and maxillary sinuses consistent with acute sinusitis, 1.6 cm nodule in the left lobe of the thyroid recommend further evaluation follow-up with thyroid ultrasound. CT chest abdomen pelvis with IV contrast was also performed which was negative for acute processes again noted thyroid nodule. She was also noted to be in atrial fibrillation with rapid ventricular response with a rate of around 160-170, this is new onset for her. She is started on amiodarone drip which has improved her rate. We will need to admit for A-fib RVR, sepsis. Allergies ciprofloxacin Allergy (Intermediate, Verified 11/07/13 07:24) Nausea/Vomiting clindamycin Allergy (Intermediate, Verified 11/07/13 07:24) Nausea/Vomiting codeine Allergy (Intermediate, Verified 11/06/13 23:04) Rash naproxen Allergy (Intermediate, Verified 11/06/13 23:05) Nausea/Vomiting acetaminophen [From Darvocet-N 100] Allergy (Unverified 12/05/14 09:36) Unknown amoxicillin Allergy (Unverified 12/05/14 09:36) Unknown ciprofloxacin HCl [From Cipro] Allergy (Unverified 08/12/15 17:57) Unknown clindamycin HCl [From Cleocin] Allergy (Unverified 12/05/14 09:36) Unknown clindamycin palmitate HCl [From Cleocin] Allergy (Unverified 12/05/14 09:36) Unknown clindamycin phosphate [From Cleocin] Allergy (Unverified 12/05/14 09:36) Unknown propoxyphene napsylate [From Darvocet-N 100] Allergy (Unverified 12/05/14 09:36) Unknown amoxicillin trihydrate [From Prevpac] Adverse Reaction (Intermediate, Verified 11/07/13 07:25) Nausea/Vomiting clarithromycin [From Prevpac] Adverse Reaction (Intermediate, Verified 11/07/13 07:25) Nausea/Vomiting hydrocodone Adverse Reaction (Intermediate, Verified 11/07/13 07:27) Nausea/Vomiting indomethacin Adverse Reaction (Intermediate, Verified 11/07/13 07:25) Nausea/Vomiting lansoprazole [From Prevpac] Adverse Reaction (Intermediate, Verified 11/07/13 07:25) Nausea/Vomiting propoxyphene Adverse Reaction (Intermediate, Verified 11/07/13 07:26) Nausea/Vomiting Blood pressure meds Allergy (Mild, Uncoded 11/06/13 23:06) Anaphylaxis YOEL Inhibitor Allergy (Uncoded 12/05/14 09:36) Unknown YOEL INHIBITORS Allergy (Uncoded 08/12/15 17:57) Unknown BP meds Allergy (Uncoded 03/02/16 14:22) Unknown Cipro PO Allergy (Uncoded 03/02/16 14:22) Unknown clarithromycin Allergy (Uncoded 12/05/14 09:36) Unknown codeine Allergy (Uncoded 12/05/14 09:36) Unknown Hydrocod Allergy (Uncoded 03/02/16 14:22) Unknown Hydrocodone-A Allergy (Uncoded 12/05/14 09:36) Unknown Hydrocodone-Aceta Allergy (Uncoded 08/12/15 17:57) Unknown ind Allergy (Uncoded 12/05/14 09:36) Unknown lansoprazole Allergy (Uncoded 12/05/14 09:36) Unknown naproxen Allergy (Uncoded 12/05/14 09:36) Unknown Propoxyphene N-Yoel Allergy (Uncoded 03/02/16 14:22) Unknown Home Medications: Amlodipine [Norvasc*] 5 mg PO DAILY 11/07/13 Cholecalciferol (Vitamin D3) [Vitamin D 2,000 Unit Tab] 1 tab PO M,W,F 11/07/13 Magnesium Oxide [Mag 0X*] 1 tab PO DAILY 11/07/13 Pravastatin [Pravachol*] 40 mg PO BEDTIME 11/07/13 cloNIDine HCL [Catapres*] 0.1 mg PO TID 11/07/13 Cyanocobalamin (Vitamin B-12) [B-12] 2,500 mcg SL DAILY #30 lozenge 11/09/13 Rivaroxaban [Xarelto*] 15 mg PO Q12H #42 tablet 11/09/13 Ascorbic Acid [Vitamin C*] 500 mg PO DAILY 10/23/14 Furosemide [Lasix*] 40 mg PO DAILY 10/23/14 Hydralazine [Apresoline*] 50 mg PO TID 10/23/14 Insulin Detemir [Levemir Flexpen] 40 units SQ DAILY 10/23/14 Labetalol HCl [Trandate] 200 mg PO BID 10/23/14 Valsartan 320 mg PO DAILY 10/23/14 - Past Medical/Surgical History Diabetic: Yes -: htn -: high cholesterol -: Gout -: l ctaract removed -: partial hyst -: colonoscopy Psychosocial/ Personal History: Lives at home with family - Family History Family History: Reviewed- Non-Contributory - Social History Alcohol use: No CD- Drugs: No Caffeine use: Yes Place of Residence: Home Review of Systems 10-point ROS is otherwise unremarkable General: Fever, Chills, Weakness, Malaise ENT: Nose Discharge, Throat Pain, As per HPI Physical Examination - Physical Exam General: Alert, In no apparent distress, Oriented x2 HEENT: Atraumatic, Other (coious nasal discharge) Neck: Supple, 2+ carotid pulse no bruit, No LAD, Without JVD or thyroid abnormality Respiratory: Clear to auscultation bilaterally, Normal air movement Cardiovascular: Irregular heart rate/rhythm (Afib rvr) Capillary refill: <2 Seconds Gastrointestinal: Normal bowel sounds, No tenderness Musculoskeletal: No tenderness Integumentary: No rashes Neurological: Normal speech, Normal strength at 5/5 x4 extr, Normal tone, Normal affect - Studies Laboratory Data (last 24 hrs) 12/03/22 01:40: PT 11.7, INR 1.06, APTT 25.9 12/03/22 01:40: Sodium 137, Potassium 4.2, BUN 26 H, Creatinine 1.44 H, Glucose 251 H, Total Bilirubin 0.8, AST 16, ALT 17, Alkaline Phosphatase 47 12/03/22 01:40: WBC 15.20 H, Hgb 12.5, Hct 38.5, Plt Count 135 L Microbiology Data (last 24 hrs): 12/03/22 03:26 Throat Group A Streptococcus Rapid Screen - Final Assessment and Plan - Plan Assessment: New onset atrial fibrillation with rapid ventricular response Sepsis likely secondary to acute sinusitis/possible peritonsillar/parapharyngeal soft tissue infection Diabetes mellitus type 2insulin-dependent with hyperglycemia Hypertension Hyperlipidemia Incidental CT finding 1.6 cm thyroid nodule Plan: New onset atrial fibrillation with rapid ventricular response On amiodarone, rate controlled at this time, no known history of atrial fibrillation. Cardiology consult in place, echocardiogram ordered. We will check thyroid levels as well especially given noted thyroid nodule. Therapeutic Lovenox ordered. Sepsis likely secondary to acute sinusitis/possible peritonsillar/parapharyngeal soft tissue infection Patient with multiple drug allergies including penicillins, Cipro, clindamycin, clarithromycin. Patient and family very poor historian unable to discern severity of reactions, at this time patient started on vancomycin/doxycycline. Infectious disease to be consulted as well. Appreciate their input. Diabetes mellitus type 2insulin-dependent with hyperglycemia ACHS Accu-Chek, sliding scale insulin. A1c. Hypertension Blood pressure soft at this time we will hold off on antihypertensive agents especially in the setting of sepsis. Hyperlipidemia Continue home medications once verified. Incidental CT finding 1.6 cm thyroid nodule Thyroid ultrasound ordered, TSH/free T4 levels ordered. DVT PPX: Therapeutic Lovenox Code status: Full Discharge Plan: Home Plan to discharge in: 72 Hours - Advance Directives Does patient have a Living Will: No Does patient have a Durable POA for Healthcare: No - Code Status/Comfort Care Code Status Assessed: Yes (Full code) Critical Care: No Time Spent Managing Pts Care (In Minutes): 70
[2022-12-03] MEDS: INSULIN -REGULAR HUMAN 50 UNIT/0.5 ML ML SQ SCH ×4 (07:30→21:00)
--- NOTE | 2022-12-03 07:51 | RAD REPORT ---
EXAM DESCRIPTION: US - Thyroid Para Parotid Gland - 12/03/2022 6:10 am CLINICAL HISTORY: E04.1 COMPARISON: December 03, 2022 CT FINDINGS: The right lobe of the thyroid measures 3.2 x 1.2 x 1.5 centimeters. 4 millimeter cyst is p resent within the right lobe. The left lobe of the thyroid measures 4.2 x 2.1 x 1.9 centimeters. 1.4 centimeter cystic mass left lo be of thyroid gland. It contains 2 small echogenic nodules and a small amount of debris. 5 millimeter cyst is present the left lobe. IMPRESSION: Thyroid cysts bilaterally are benign 1.4 centimeter cystic mass left lobe of thyroid gland containing small nodules probably benign. Follo w-up ultrasound in 1 year recommended for re-evaluation
[2022-12-03 09:00] VITALS: BMI 23.3
[2022-12-03] MEDS: ENOXAPARIN 60 MG/0.6 ML SQ SCH ×2 (09:00→21:00)
[2022-12-03] MEDS ORDERED: ENOXAPARIN 40 MG/0.4 ML SQ SCH (09:00)
[2022-12-03] MEDS ORDERED: INSULIN -REGULAR HUMAN 50 UNIT/0.5 ML ML ONE (09:07)
[2022-12-03] MEDS ORDERED: ENOXAPARIN 60 MG/0.6 ML SQ ONE ×2 (09:07→21:26)
[2022-12-03] MEDS: NA CHLORIDE 0.9% 1,000 ML IV SCH ×2 (09:09→19:20)
[2022-12-03 10:41] LABS: Thyroid Stimulating Hormone 0.279 uIU/mL (0.358-3.740)
--- NOTE | 2022-12-03 11:27 | P.CNS ---
Date of Consult: 12/03/22 Reason for Consult: sepsis, fever, sinusitis, soft tissue infection Chief Complaint: Afib RVR, Sepsis History of Present Illness: Patient is a 77 yo female with a medical history of hypertension, diabetes, atrial fibrillation and hyperlipidemia. Patient presented to the ED with complaints of sore throat, fever and weakness. Patient reports sore throat started abruptly about 3 days ago and has been gradually worsening. CT soft tissue neck was performed which showed mild left peritonsillar and parapharyngeal edema which may represent soft tissue infection; no evidence of peritonsillar, retropharyngeal or parapharyngeal abscess; and paranasal sinus and nasal mucosa thickening consistent with acute sinusitis. CT chest/abd/pelvis no definitive acute process. Multiple antibiotic allergies listed on EMR; patient denies any adverse reactions such as rash, itching, hives or swelling; only reports nausea on previous antibiotics. Allergies ciprofloxacin Allergy (Intermediate, Verified 11/07/13 07:24) Nausea/Vomiting clindamycin Allergy (Intermediate, Verified 11/07/13 07:24) Nausea/Vomiting codeine Allergy (Intermediate, Verified 11/06/13 23:04) Rash naproxen Allergy (Intermediate, Verified 11/06/13 23:05) Nausea/Vomiting acetaminophen [From Darvocet-N 100] Allergy (Unverified 12/05/14 09:36) Unknown amoxicillin Allergy (Unverified 12/05/14 09:36) Unknown ciprofloxacin HCl [From Cipro] Allergy (Unverified 08/12/15 17:57) Unknown clindamycin HCl [From Cleocin] Allergy (Unverified 12/05/14 09:36) Unknown clindamycin palmitate HCl [From Cleocin] Allergy (Unverified 12/05/14 09:36) Unknown clindamycin phosphate [From Cleocin] Allergy (Unverified 12/05/14 09:36) Unknown propoxyphene napsylate [From Darvocet-N 100] Allergy (Unverified 12/05/14 09:36) Unknown amoxicillin trihydrate [From Prevpac] Adverse Reaction (Intermediate, Verified 11/07/13 07:25) Nausea/Vomiting clarithromycin [From Prevpac] Adverse Reaction (Intermediate, Verified 11/07/13 07:25) Nausea/Vomiting hydrocodone Adverse Reaction (Intermediate, Verified 11/07/13 07:27) Nausea/Vomiting indomethacin Adverse Reaction (Intermediate, Verified 11/07/13 07:25) Nausea/Vomiting lansoprazole [From Prevpac] Adverse Reaction (Intermediate, Verified 11/07/13 07:25) Nausea/Vomiting propoxyphene Adverse Reaction (Intermediate, Verified 11/07/13 07:26) Nausea/Vomiting Blood pressure meds Allergy (Mild, Uncoded 11/06/13 23:06) Anaphylaxis YOEL Inhibitor Allergy (Uncoded 12/05/14 09:36) Unknown YOEL INHIBITORS Allergy (Uncoded 08/12/15 17:57) Unknown BP meds Allergy (Uncoded 03/02/16 14:22) Unknown Cipro PO Allergy (Uncoded 03/02/16 14:22) Unknown clarithromycin Allergy (Uncoded 12/05/14 09:36) Unknown codeine Allergy (Uncoded 12/05/14 09:36) Unknown Hydrocod Allergy (Uncoded 03/02/16 14:22) Unknown Hydrocodone-A Allergy (Uncoded 12/05/14 09:36) Unknown Hydrocodone-Aceta Allergy (Uncoded 08/12/15 17:57) Unknown ind Allergy (Uncoded 12/05/14 09:36) Unknown lansoprazole Allergy (Uncoded 12/05/14 09:36) Unknown naproxen Allergy (Uncoded 12/05/14 09:36) Unknown Propoxyphene N-Yoel Allergy (Uncoded 03/02/16 14:22) Unknown Home medications list reviewed: Yes Home Medications: Amlodipine [Norvasc*] 5 mg PO DAILY 11/07/13 Cholecalciferol (Vitamin D3) [Vitamin D 2,000 Unit Tab] 1 tab PO M,W,F 11/07/13 Magnesium Oxide [Mag 0X*] 1 tab PO DAILY 11/07/13 Pravastatin [Pravachol*] 40 mg PO BEDTIME 11/07/13 cloNIDine HCL [Catapres*] 0.1 mg PO TID 11/07/13 Cyanocobalamin (Vitamin B-12) [B-12] 2,500 mcg SL DAILY #30 lozenge 11/09/13 Rivaroxaban [Xarelto*] 15 mg PO Q12H #42 tablet 11/09/13 Ascorbic Acid [Vitamin C*] 500 mg PO DAILY 10/23/14 Furosemide [Lasix*] 40 mg PO DAILY 10/23/14 Hydralazine [Apresoline*] 50 mg PO TID 10/23/14 Insulin Detemir [Levemir Flexpen] 40 units SQ DAILY 10/23/14 Labetalol HCl [Trandate] 200 mg PO BID 10/23/14 Valsartan 320 mg PO DAILY 10/23/14 - Past Medical/Surgical History Diabetic: Yes -: htn -: high cholesterol -: Gout -: l ctaract removed -: partial hyst -: colonoscopy Psychosocial/ Personal History: Lives at home with family - Social History Smoking Status: Never smoker Alcohol use: No CD- Drugs: No Caffeine use: Yes Place of Residence: Home Review of Systems 10-point ROS is otherwise unremarkable General: Weakness ENT: Nose Discharge (clear), Throat Pain Physical Examination Temp Pulse Resp BP Pulse Ox 97.3 F 94 H 18 111/77 99 12/03/22 08:00 12/03/22 08:00 12/03/22 08:00 12/03/22 08:00 12/03/22 08:00 General: Alert, In no apparent distress, Oriented x3 HEENT: Atraumatic, Normocephalic, Other (clear nasal discharge, bilateral) Neck: Supple, JVD not distended Respiratory: Clear to auscultation bilaterally, Diminished Cardiovascular: No edema, Normal pulses, Irregular heart rate/rhythm (atrial fibrillation) Gastrointestinal: Normal bowel sounds, Soft and benign, Non-distended Musculoskeletal: No clubbing, No swelling, No erythema, No tenderness, No warmth Integumentary: No rashes, No breakdown Neurological: Normal tone, Normal affect Laboratory Data - Reviewed Imagings Data: - reviewed Microbiology Data - reviewed Conclusions/Impression: Problem List - Acute Sinusitis - Soft tissue infection, throat - Sepsis - Atrial Fibrillation with RVR Acute Sinusitis / Soft Tissue Infection of throat / Sepsis - Leukocytosis (WBC 15.2); afebrile (temp 97.5) - Group A Strep rapid screen: negative - Throat culture 12/03: pending - Blood cultures 12/03: pending Recommendations - Continue Doxycycline and Vancomycin for now - Add IV Merrem - ID will follow up and adjust antibiotics as appropriate ID will monitor the patient closely Case discussed with Lucero Botello
--- NOTE | 2022-12-03 12:02 | RAD REPORT ---
EXAM DESCRIPTION: CT - Chest Abdomen Pelvis W Cont - 12/03/2022 5:21 am CLINICAL HISTORY: Fever, AMS, unknown origin COMPARISON: None. TECHNIQUE: CT CHEST ABDOMEN PELVIS WITH IV CONTRAST on 12/03/2022 3:02 AM CDT. MIPS reconstructions w ere generated. This exam was performed according to our departmental dose-optimization program, which includes autom ated exposure control, adjustment of the mA and/or kV according to patient size and/or use of iterati ve reconstruction technique. FINDINGS: Vascular: Thoracic aorta is normal in course and caliber without aneurysm or dissection. P ulmonary arteries are somewhat moderately opacified. Abdominal aorta is normal in course and caliber without aneurysm. Pelvic arteries are patent without aneurysm or occlusion. Chest: The heart is normal in size. There is no pericardial effusion. There are calcified central med iastinal lymph nodes. Left thyroid nodule measures 1.5 cm. There is no pleural effusion, pleural thickening or pneumothorax. Central airways are patent. Lungs a re clear with no consolidation, mass or interstitial lung disease. Abdomen: The liver is normal in appearance. There is no biliary dilatation. Gallbladder is normal in appearance. The pancreas and spleen are normal in appearance. The adrenal glands and kidneys are unre markable. There is no free air. There is no retroperitoneal adenopathy. Pelvis: There is no bowel obstruction. Urinary bladder is decompressed with a Gallegos catheter. There i s no free fluid. Uterus is not seen. Appendix is normal. Skeleton: There are no acute osseous findings. No suspicious bony lesions. IMPRESSION: No definite acute process. 1.5 cm incidental left thyroid nodule. Recommend thyroid US. Reference: J Am Vivi Radiol. 2015 Sep;12(2): 143-50 Electronically signed by: Regan Lu MD 12/03/2022 5:06 AM CDT Due to temporary technical issues with the PACS/Fluency reporting system, reports are being signed by the in house radiologists without review as a courtesy to insure prompt reporting. The interpreting radiologist is fully responsible for the content of the report.
--- NOTE | 2022-12-03 12:06 | RAD REPORT ---
EXAM DESCRIPTION: CT - Soft Tissue Neck W/Contr - 12/03/2022 5:20 am CLINICAL HISTORY: Sore throat, fever, AMS TECHNIQUE: Contiguous axial images obtained through the neck following the uneventful administration of IV contrast. Coronal and sagittal reformatted images were provided. This exam was performed according to our departmental dose-optimization program, which includes autom ated exposure control, adjustment of the mA and/or kV according to patient size and/or use of iterati ve reconstruction technique. COMPARISON: None available for comparison FINDINGS: Nasopharynx is normal in contour. Mild left peritonsillar and parapharyngeal edema, which may represent soft tissue infection. No discr ete mass is identified. No evidence of peritonsillar, retropharyngeal, or parapharyngeal abscess. Epiglottis and aryepiglottic folds are within normal limits. 1.6 cm nodule in the left lobe of the thyroid. Recommend further evaluation and follow-up with thyroi d ultrasound. Paranasal sinus and nasal mucosal thickening with air-fluid levels in the ethmoid and maxillary sinus es, consistent with acute sinusitis. IMPRESSION: 1. Mild left peritonsillar and parapharyngeal edema, which may represent soft tissue i nfection. No discrete mass identified. Clinical correlation and follow-up recommended. No evidence of peritonsillar, retropharyngeal, or parapharyngeal abscess. 2. Paranasal sinus and nasal mucosal thickening with air-fluid levels in the ethmoid and maxillary sinuses, consistent with acute sinusitis. 3. 1.6 cm nodule in the left lobe of the thyroid. Recommend further evaluation and follow-up with t hyroid ultrasound. Electronically signed by: Sean Calle MD 12/03/2022 4:51 AM CDT Due to temporary technical issues with the PACS/Fluency reporting system, reports are being signed by the in house radiologists without review as a courtesy to insure prompt reporting. The interpreting radiologist is fully responsible for the content of the report.
--- NOTE | 2022-12-03 13:01 | CON ---
Date of Consultation: 12/03/2022 Reason For Consultation: Rapid ventricular response. History Of Present Illness: Mrs. Kimball is 77-year-old black woman, has a history of DVT, hypertension , diabetes, dyslipidemia, came in with sepsis altered mental status, fever, noted to have atrial fibr illation with rapid ventricular response. Her atrial fibrillation is chronic. She takes labetalol a nd Xarelto for that at home, but it is rapid run because she is febrile and has sepsis. No cardiac s ymptoms reported. Little difficult to obtain a history from Mrs. Kimball as she was very ill. Past Medical History: As stated above. Allergies: SHE IS ALLERGIC TO CIPRO, AMOXICILLIN, CLINDAMYCIN, NAPROSYN. Review of Systems: Negative. Social History: Negative. Family History: Negative. Medications: At home include Xarelto, insulin, Norvasc, Pravachol, valsartan, hydralazine Lasix, Cat apres, and labetalol. Physical Examination: General: She appeared to be rather ill, somnolent. She was in atrial fibrillation rate of 110, afeb rile. HEENT: Negative. Neck: Supple with no bruit. Chest: Clear. Cardiac: Revealed atrial fibrillation. Abdomen: Benign. Extremities: Revealed no clubbing, cyanosis, or edema. Diagnostic Data: Available include a white count of 15,000. Glucose of 251. Creatinine is 1.44. Impression And Plan: Rapid atrial fibrillation, chronic in the setting of fever and sepsis. It is e xpected for the atrial fibrillation to be rapid considering the situation. I will continue her Xarel to, continue her labetalol. She is on amiodarone drip and I agree with that. We will just aim for r ate control, not cardioversion because she has had atrial fibrillation chronically. She is on insuli n, Lovenox, antibiotics. Echocardiogram is pending. We will see what that shows before making furth er decisions. Her history of DVT, hypertension, diabetes, and dyslipidemia are controlled at this po int. She is on antibiotics for sepsis. We will continue to follow. NB/MODL Voice ID: [id number] Report ID: [id number]
--- NOTE | 2022-12-03 13:54 | RAD REPORT ---
EXAM DESCRIPTION: RAD - Chest Single View - 12/03/2022 12:47 am CLINICAL HISTORY: 77 years Female Cough;Fever TECHNIQUE: One view of the chest. COMPARISON: No prior exams provided for comparison. FINDINGS: The lungs are clear without focal consolidation, effusion, or pneumothorax. The cardiomedi astinal silhouette and central pulmonary vasculature are normal. No acute osseous abnormalities. IMPRESSION: No acute cardiopulmonary abnormalities. Electronically signed by: Sonya Pearson MD 12/03/2022 1:46 AM CDT Due to temporary technical issues with the PACS/Fluency reporting system, reports are being signed by the in house radiologists without review as a courtesy to insure prompt reporting. The interpreting Radiologist is fully responsible for the content of the report.
--- NOTE | 2022-12-03 14:13 | ECHO ---
HEIGHT: 5 ft 6 in WEIGHT: 144 lb 15.968 oz DATE OF STUDY: 12/03/[address]: Tim Jones NP 2-DIMENSIONAL: YES M.MODE: YES DOPPLER: YES COLOR FLOW: YES TDS: PORTABLE: YES DEFINITY: BUBBLE STUDY: DIAGNOSIS: NEW ONSET ATRIAL FIBRILLATION CARDIAC HISTORY: CATHERIZATION: NO SURGERY: NO PROSTHETIC VALVE: NO PACEMAKER: NO MEASUREMENTS (cm) DIASTOLIC (NORMALS) SYSTOLIC (NORMALS) IVSd 1.1 (0.6-1.2) LA Diam 2.3 (1.9-4.0) LVEF 68% LVIDd 3.8 (3.5-5.7) LVIDs 2.4 (2.0-3.5) %FS 37% LVPWd 1.0 (0.6-1.2) Ao Diam 2.6 (2.0-3.7) 2 DIMENSIONAL ASSESSMENT: RIGHT ATRIUM: NORMAL LEFT ATRIUM: NORMAL RIGHT VENTRICLE: NORMAL LEFT VENTRICLE: NORMAL TRICUSPID VALVE: NORMAL MITRAL VALVE: MITRAL ANNULAR CALCIFICATION PULMONIC VALVE: NORMAL AORTIC VALVE: SCLEROSIS PERICARDIAL EFFUSION: NONE AORTIC ROOT: NORMAL LEFT VENTRICULAR WALL MOTION: NORMAL DOPPLER/COLOR FLOW: MODERATE MITRAL REGURGITATION. MILD TRICUSPID REGURGITATION COMMENTS: 1. NORMAL LEFT VENTRICULAR SIZE AND FUNCTION 2. MODERATE MITRAL REGURGITATION 3. MILD TRICUSPID REGURGITATION - NORMAL RIGHT VENTRICULAR SYSTOLIC PRESSURE 4. MITRAL ANNULAR CALCIFICATION 5. AORTIC SCLEROSIS TECHNOLOGIST: COLE ROPER
[2022-12-03] MEDS: DOXYCYCLINE 100 MG in NA CHLORIDE 0.9% 100 ML IVPB SCH (21:00)
[2022-12-03] MEDS ORDERED: DOXYCYCLINE HYCLATE 100MG INJ ONE (21:26)
[2022-12-03] MEDS ORDERED: NA CHLORIDE 0.9% 100 ML ONE (21:29)
[2022-12-04] MEDS ORDERED: NA CHLORIDE 0.9% 1,000 ML ONE ×2 (00:03→12:06)
[2022-12-04 02:08] LABS: Absolute Lymphocytes (CBC) 1.2 K/uL (0.7-4.9); Lymphocytes % 8.9 % (15.3-44.8); MCV 93.3 fL (80-100); RBC Red Blood Cell Count 3.86 M/uL (3.86-4.86)
[2022-12-04 02:16] LABS: Potassium 3.6 mEq/L (3.5-5.1)
[2022-12-04] MEDS ORDERED: VANCOMYCIN 1.25 GM in NA CHLORIDE 0.9% 250 ML IVPB SCH (06:00)
--- NOTE | 2022-12-04 06:56 | EKG ---
Test Date: 2022-12-03 Test Time: 00:40:35 Dental Hygienist Mobile Coordinator: INGRIS MEASUREMENT RESULTS: Intervals: Rate: 145 PA: QRSD: 64 QT: 264 QTc: 410 [place]: P: PA: QRS: 7 T: -8 INTERPRETIVE STATEMENTS: Atrial fibrillation with premature ventricular or aberrantly conducted complexes Low voltage QRS Nonspecific ST abnormality, probably digitalis effect Abnormal ECG Compared to ECG 10/22/2020 16:25:30 Ventricular premature complex(es) now present Low QRS voltage now present ST (T wave) deviation now present Sinus bradycardia no longer present Left ventricular hypertrophy no longer present Electronically Signed On 12-04-22 06:55:16 CDT by Juan Manuel Gordon
[2022-12-04] MEDS: INSULIN -REGULAR HUMAN 50 UNIT/0.5 ML ML SQ SCH ×4 (07:30→20:29)
[2022-12-04] MEDS ORDERED: METOPROLOL TAR 50 MG TAB ONE (08:37)
[2022-12-04] MEDS ORDERED: ENOXAPARIN 60 MG/0.6 ML SQ ONE (08:37)
[2022-12-04] MEDS: NA CHLORIDE 0.9% 1,000 ML IV SCH (08:40)
[2022-12-04] MEDS: METOPROLOL TAR 50 MG TAB PO SCH ×2 (08:41→20:28)
[2022-12-04] MEDS: DOXYCYCLINE 100 MG in NA CHLORIDE 0.9% 100 ML IVPB SCH (08:41)
[2022-12-04] MEDS: ENOXAPARIN 60 MG/0.6 ML SQ SCH ×2 (08:41→20:28)
--- NOTE | 2022-12-04 09:53 | P.PN ---
Date of Service: 12/04/22 Subjective: No C/O voiced, Improving Patient is sitting up in bed, not in apparent distress, A&O x3, breathing comfortably on room air. Patient reports her throat is feeling much better and that she is feeling better overall. Denies any nausea, vomiting, diarrhea or abdominal pain. Denies any rashes, itching or hives. Denies any shortness of breath, chest pain or palpitations. Physical Examination - Vital Signs Temp Pulse Resp BP Pulse Ox 98.2 F 101 H 21 H 121/69 99 12/04/22 09:00 12/04/22 09:00 12/04/22 09:00 12/04/22 09:00 12/04/22 09:00 - Physical Examination General: Alert, In no apparent distress, Oriented x3 HEENT: Atraumatic, Normocephalic Neck: Supple, JVD not distended Respiratory: Clear to auscultation bilaterally Cardiovascular: No edema, Normal pulses, Irregular heart rate/rhythm (atrial fibrillation) Gastrointestinal: Normal bowel sounds, Soft and benign, Non-distended Musculoskeletal: No clubbing, No swelling, No erythema, No tenderness, No warmth Integumentary: No rashes, No breakdown Neurological: Normal tone, Normal affect - Studies Laboratory Data - Reviewed Imagings Data: - CT Soft Tissue Neck 12/03 Findings: "Mild left peritonsillar and parapharyngeal edema, which may represent soft tissue infection. No discrete mass identified. No evidence of peritonsillar, retropharyngeal, or paraph aryngeal abscess. 2. Paranasal sinus and nasal mucosal thickening with air-fluid levels in the ethmoid and maxillary sinuses, consistent with acute sinusitis. 1.6 cm nodule in the left lobe of the thyroid" - CT Chest/Abdomen/Pelvis 12/03: "No definitive acute process" Microbiology Data - Group A Streptococcus Rapid Screen 12/03: Negative - Blood cultures 12/03: No growth to date - Throat culture 12/03: Normal upper respiratory vera grown Medications List Reviewed: Yes Impression & Plan Problem List - Acute Sinusitis - Soft tissue infection, throat - Sepsis - Atrial Fibrillation with RVR - Thrombocytopenia - Leukocytosis Acute Sinusitis / Soft Tissue Infection of throat / Sepsis - Group A Strep rapid screen: negative - Blood cultures 12/03: No growth to date - Throat culture 12/03: Normal upper respiratory vera grown - Leukocytosis improving (13.8); afebrile - Currently on IV Doxycycline, Vancomycin, Merrem Recommendations - IV Doxycycline discontinued - Continue IV Vancomycin and Merrem for now ID will follow the patient closely. Case discussed with Lucero Botello
[2022-12-04] MEDS: Meropenem 1,000 MG in NA CHLORIDE 0.9% 100 ML IV SCH ×2 (10:53→20:29)
--- NOTE | 2022-12-04 15:43 | P.PN ---
Subjective Date of Service: 12/04/22 Chief Complaint: Afib RVR, Sepsis No acute events overnight. She remains in atrial fibrillation, with heart rates in the low 100s. She denies any symptoms this morning. She denies any chest pain, palpitations, or shortness of breath. Spoke with Dr. Gordon, who recommended discontinuing the amiodarone drip and starting her on metoprolol tartrate 50 mg twice daily. Review of Systems 10-point ROS is otherwise unremarkable General: Weakness (generalized) Physical Examination - Vital Signs Temperature: 97.5 F Blood Pressure: 133/79 Pulse: 101 Respirations: 17 Pulse Ox (%): 99 - Physical Exam General: Alert, In no apparent distress, Oriented x3 HEENT: Atraumatic, Mucous membr. moist/pink, Other (Posterior oropharyngeal erythema, without exudate or petechiae), Sclerae nonicteric Neck: JVD not distended Respiratory: Clear to auscultation bilaterally, Normal air movement Cardiovascular: No edema, Irregular heart rate/rhythm, Systolic murmur Gastrointestinal: Normal bowel sounds, Soft and benign, Non-distended, No tenderness, No rebound, No guarding Musculoskeletal: No clubbing Integumentary: No rashes Neurological: Normal speech, Normal affect - Studies Microbiology Data (last 24 hrs): 12/03/22 03:26 Throat Culture & Sensitivity - Final NORMAL UPPER RESPIRATORY ELIUD GROWN. Assessment And Plan - Plan # Paroxysmal Atrial Fibrillation with Rapid Ventricular Response # Type II Non-ST Segment Elevation Myocardial Infarction (Demand Ischemia) due to above # Moderate Mitral Regurgitation Her [id number] = 5 (HTN=1, Age>75=2, DM=1, Sex=1), which warrants anticoagulation. - EKG reportedly without STEMI criteria, trend - Serial troponin: 111.0 -> 81.2 - Transthoracic echocardiogram = "1. normal left ventricular size and function 2. moderate mitral regurgitation 3. mild tricuspid regurgitation normal right ventricular systolic pressure 4. mitral annular calcification 5. aortic sclerosis" - Chest x-ray = "no acute cardiopulmonary abnormalities" - Consulted Cardiology and spoke with Dr. Gordon - recommendations appreciated - Recommended discontinuing amiodarone drip and starting metoprolol tartrate 50 mg BID - Continue enoxaparin for now - takes rivaroxaban at home # Sepsis likely secondary to Acute Sinusitis/possible Peritonsillar/Parapharyngeal Soft Tissue Infection She met sepsis criteria based on temperature > 100.9 F, HR > 90 bpm, and WBC > 12,000 and the suspected source is upper respiratory. - Infectious Diseases consulted due to multiple antibiotic allergies and spoke with CESARIO Woods - recommendations appreciated - CT neck soft tissue = " 1. Mild left peritonsillar and parapharyngeal edema, which may represent soft tissue infection. No discrete mass identified. Clinical correlation and follow-up recommended. No evidence of peritonsillar, retropharyngeal, or parapharyngeal abscess. 2. Paranasal sinus and nasal mucosal thickening with air-fluid levels in the ethmoid and maxillary sinuses, consistent with acute sinusitis. 3. 1.6 cm nodule in the left lobe of the thyroid. Recommend further evaluation and follow-up with thyroid ultrasound." - Sepsis order set was initiated - Group A Strep = negative - Initial Lactate was 1.9 - Blood cultures drawn before antibiotics were given - Broad spectrum antibiotics started: Vancoymcin + Meropenem per ID - In regards to fluids: - 30 mL/kg of IV fluids was not administered given SBP > 90, MAP > 65, lactic acid < 4 # KDIGO Stage I Acute Kidney Injury likely Pre-Renal - resolved - Nephrology consulted and spoke with Dr. Mulligan - recommendations appreciated - Creatinine = 1.44 -> 1.00 - Urinalysis = 1+ glucose, 510 hyaline casts, 1+ protein - Monitor creatinine and urine output - If worsening, obtain renal ultrasound - Renally dose medications # Hyperglycemia in Type 2 Diabetes Mellitus - Hgb A1c = 6.7 % - Correction scale insulin # Hypertension # Hyperlipidemia - Reconcile home medications once verified # 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 1.4 centimeter cystic mass left lobe of thyroid gland containing small nodules probably benign. Follow-up ultrasound in 1 year recommended for re-evaluation." - CT chest/abdomen/pelvis = "No definite acute process. 1.5 cm incidental left thyroid nodule. Recommend thyroid US." - Follow-up with PCP for further evaluation/surveillance imaging Randell Pierce M.D.
--- NOTE | 2022-12-04 16:17 | P.CNS ---
Date of Consult: 12/04/22 Reason for Consult: KOBY Requesting Physician: Tim Jones Chief Complaint: Afib RVR, Sepsis History of Present Illness: Pt is an elderly AA female with history of insulin-dependent diabetes, chronic hypertension on several agents including diuretic presented yesterday to the emergency department for fevers, weakness, sore throat, some cough but no dyspnea. Family reports that she began complaining of sore throat that started on Wednesday of this week and had been progressively getting worse since then. She was evaluated in the emergency department her labs were significant for leukocytosis and left shift. She was febrile on admission. She was also noted to be in atrial fibrillation with rapid ventricular response with a rate of around 160-170, which she was placed on a Amio gtt for. Seen earlier this AM, pt reported feeling fair, she denied any CP, dyspnea, abd pain, other. Allergies ciprofloxacin Allergy (Intermediate, Verified 12/04/22 10:52) Nausea/Vomiting clindamycin Allergy (Intermediate, Verified 12/04/22 10:52) Nausea/Vomiting codeine Allergy (Intermediate, Verified 12/04/22 10:52) Rash naproxen Allergy (Intermediate, Verified 12/04/22 10:52) Nausea/Vomiting acetaminophen [From Darvocet-N 100] Allergy (Verified 12/04/22 10:52) Unknown amoxicillin Allergy (Verified 12/04/22 10:52) Unknown ciprofloxacin HCl [From Cipro] Allergy (Verified 12/04/22 10:52) Unknown clindamycin HCl [From Cleocin] Allergy (Verified 12/04/22 10:52) Unknown clindamycin palmitate HCl [From Cleocin] Allergy (Verified 12/04/22 10:52) Unknown clindamycin phosphate [From Cleocin] Allergy (Verified 12/04/22 10:52) Unknown propoxyphene napsylate [From Darvocet-N 100] Allergy (Verified 12/04/22 10:52) Unknown amoxicillin trihydrate [From Prevpac] Adverse Reaction (Intermediate, Verified 12/04/22 10:52) Nausea/Vomiting clarithromycin [From Prevpac] Adverse Reaction (Intermediate, Verified 12/04/22 10:52) Nausea/Vomiting hydrocodone Adverse Reaction (Intermediate, Verified 12/04/22 10:52) Nausea/Vomiting indomethacin Adverse Reaction (Intermediate, Verified 12/04/22 10:52) Nausea/Vomiting lansoprazole [From Prevpac] Adverse Reaction (Intermediate, Verified 12/04/22 10:52) Nausea/Vomiting propoxyphene Adverse Reaction (Intermediate, Verified 12/04/22 10:52) Nausea/Vomiting Blood pressure meds Allergy (Mild, Uncoded 12/04/22 10:52) Anaphylaxis YOEL Inhibitor Allergy (Uncoded 12/04/22 10:52) Unknown YOEL INHIBITORS Allergy (Uncoded 12/04/22 10:52) Unknown BP meds Allergy (Uncoded 12/04/22 10:52) Unknown Cipro PO Allergy (Uncoded 12/04/22 10:52) Unknown clarithromycin Allergy (Uncoded 12/04/22 10:52) Unknown codeine Allergy (Uncoded 12/04/22 10:52) Unknown Hydrocod Allergy (Uncoded 12/04/22 10:52) Unknown Hydrocodone-A Allergy (Uncoded 12/04/22 10:52) Unknown Hydrocodone-Aceta Allergy (Uncoded 12/04/22 10:52) Unknown ind Allergy (Uncoded 12/04/22 10:52) Unknown lansoprazole Allergy (Uncoded 12/04/22 10:52) Unknown naproxen Allergy (Uncoded 12/04/22 10:52) Unknown Propoxyphene N-Yoel Allergy (Uncoded 12/04/22 10:52) Unknown Home Medications: Amlodipine [Norvasc*] 5 mg PO DAILY 11/07/13 Cholecalciferol (Vitamin D3) [Vitamin D 2,000 Unit Tab] 1 tab PO M,W,F 11/07/13 Magnesium Oxide [Mag 0X*] 1 tab PO DAILY 11/07/13 Pravastatin [Pravachol*] 40 mg PO BEDTIME 11/07/13 cloNIDine HCL [Catapres*] 0.1 mg PO TID 11/07/13 Cyanocobalamin (Vitamin B-12) [B-12] 2,500 mcg SL DAILY #30 lozenge 11/09/13 Rivaroxaban [Xarelto*] 15 mg PO Q12H #42 tablet 11/09/13 Ascorbic Acid [Vitamin C*] 500 mg PO DAILY 10/23/14 Furosemide [Lasix*] 40 mg PO DAILY 10/23/14 Hydralazine [Apresoline*] 50 mg PO TID 10/23/14 Insulin Detemir [Levemir Flexpen] 40 units SQ DAILY 10/23/14 Labetalol HCl [Trandate] 200 mg PO BID 10/23/14 Valsartan 320 mg PO DAILY 10/23/14 - Past Medical/Surgical History Diabetic: Yes -: htn -: high cholesterol -: Gout -: l ctaract removed -: partial hyst -: colonoscopy Psychosocial/ Personal History: Lives at home with family - Social History Smoking Status: Never smoker Alcohol use: No CD- Drugs: No Caffeine use: Yes Place of Residence: Home Review of Systems General: Fever, Weakness, Malaise Eyes: Unremarkable ENT: Throat Pain, As per HPI Respiratory: Cough Cardiovascular: As per HPI Gastrointestinal: Unremarkable Genitourinary: Unremarkable Musculoskeletal: Unremarkable Neurological: Unremarkable Lymphatics: As per HPI Physical Examination Temp Pulse Resp BP Pulse Ox 97.5 F 101 H 17 133/79 99 12/04/22 15:43 12/04/22 15:43 12/04/22 15:43 12/04/22 15:43 12/04/22 15:43 General: Alert, Cooperative HEENT: Atraumatic, Normocephalic Neck: Supple Respiratory: Normal air movement, Other (No rhonchi) Cardiovascular: No edema, Other (Non tachy) Gastrointestinal: Soft and benign, Non-distended Musculoskeletal: No swelling, No contractures Integumentary: No rashes, No tenderness/swelling Neurological: Normal speech, Normal tone, Normal affect Conclusions/Impression: A/P) 1. Stage 1 KOBY in the setting of hemodynamic factors with Afib on admission, relative hypotension, recent use of ARB/diuretic agents, other. UA o admission not too impressive, hyaline casts present c/w vol depletion. 2. Cr level has downward trended promptly with IVF hydration and rate control. 3. Echo findings noted and given MR and the Afib, will stop IVF early on to prevent pulm congestion from developing. Echo did not report dilated LA nor elevated RVSP. Cont to hold scheduled diuretic for now. 4. Hypotension resolved. Cont to trend BP, holding ARB agent 5. Infectious w/u and Abx per the primary team. Scar Mulligan MD, HOMER
--- NOTE | 2022-12-04 22:34 | PN ---
The patient came in with altered mental status, sepsis, rapid atrial fibrillation, hypertension, diab etes, dyslipidemia. Mental status has improved on IV antibiotics. She is also being hydrated. She is on Lovenox. She is on IV amiodarone for atrial fibrillation. Her atrial fibrillation must be chr onic. She is on Xarelto at home. I would aim for rate control, switch to p.o. amiodarone 400 b.i.d. for now. Add beta-blockers if we need to, add digoxin if we need to. Continue Xarelto after Loveno x is stopped. We will sign off her case for now. MICAELA/PRISCILLA Voice ID: [id number] Report ID: [id number]
[2022-12-05] MEDS ORDERED: METOPROLOL TARTRATE 5 MG/5 ML INJ IV STA (04:48)
[2022-12-05] MEDS: METOPROLOL TAR 50 MG TAB PO SCH ×2 (06:17→20:21)
[2022-12-05] MEDS: INSULIN -REGULAR HUMAN 50 UNIT/0.5 ML ML SQ SCH ×4 (07:30→20:22)
[2022-12-05 07:49] LABS: Absolute Lymphocytes (CBC) 1.3 K/uL (0.7-4.9); Hematocrit 36.6 % (36.0-45.0); MCV 93.3 fL (80-100); MPV 8.5 fL (7.6-11.3); RBC Red Blood Cell Count 3.92 M/uL (3.86-4.86)
[2022-12-05 08:09] LABS: Magnesium 1.8 mg/dL (1.6-2.4); Phosphorus 1.7 mg/dL (2.5-4.9); Potassium 3.5 mEq/L (3.5-5.1)
[2022-12-05] MEDS ORDERED: VANCOMYCIN 1.25 GM in NA CHLORIDE 0.9% 250 ML IVPB SCH (09:00)
[2022-12-05] MEDS: DIGOXIN 0.25 MG TABLET PO SCH (09:05)
[2022-12-05] MEDS: ENOXAPARIN 60 MG/0.6 ML SQ SCH ×2 (09:08→20:23)
[2022-12-05] MEDS: Meropenem 1,000 MG in NA CHLORIDE 0.9% 100 ML IV SCH ×2 (09:12→20:20)
[2022-12-05] MEDS: VANCOMYCIN 1.25 GM in NA CHLORIDE 0.9% 250 ML IVPB SCH (11:44)
--- NOTE | 2022-12-05 16:49 | P.PN ---
Nephrology note (S) Pt's family at bedside and they reports that prior to presentation pt had significant facial swelling and swelling of the lips, mouth and tongue. They deny any hx of angioedema episodes but relate an allergy reaction to the Allopurinol drug in the past. Pt does follow with Dr. Santiago in [place]. (O) Vitals reviewed in the EMR General: Alert, Cooperative HEENT: Atraumatic, Normocephalic, no current facial edema or lip or tongue swelling noted Neck: Supple, no stridor Respiratory: Normal air movement, Other (No rhonchi or wheezing) Cardiovascular: No edema, Other (Non tachy) Gastrointestinal: Soft and benign, Non-distended Musculoskeletal: No swelling, No contractures Integumentary: No rashes, No tenderness/swelling Neurological: Normal speech, Normal tone, Normal affect Conclusions/Impression: A/P) 1. Stage 1 KOBY in the setting of hemodynamic factors with Afib on admission, relative hypotension, recent use of ARB/diuretic agents, other. UA on admission not too impressive, hyaline casts present c/w vol depletion. 2. Cr level has downward trended promptly with IVF hydration and rate control and normalized 3. Echo findings noted and given MR and the Afib, did stop IVF early on to prevent pulm congestion from developing. Echo did not report dilated LA nor elevated RVSP. Cont to hold scheduled diuretic for now. 4. Hypotension resolved. BP mod elevated, will slowly reintroduce some of her home meds. 5. Swelling of the lip, mouth and tongue reported so it is possible that the throat symptoms reported were not pharyngitis but a possible angioedema episode. Will need to clarify if pt was taking an ARB or other agent that could be associated with angioedema and keep these meds suspended. Scar Mulligan MD, HOMER
--- NOTE | 2022-12-05 19:45 | P.PN ---
Subjective Date of Service: 12/05/22 Chief Complaint: Afib RVR, Sepsis No acute events overnight. She reports that her symptoms are much improved. Her leukocytosis is improving. She had hypophosphatemia this morning. Will order replacement protocol. She denies any chest pain, palpitations, or shortness of breath. Appreciate Cardiology recs regarding atrial fibrillation. Review of Systems 10-point ROS is otherwise unremarkable Physical Examination - Vital Signs Temperature: 97.6 F Blood Pressure: 169/94 Pulse: 93 Respirations: 16 Pulse Ox (%): 97 Assessment And Plan - Plan - Physical Exam General: Alert, In no apparent distress, Oriented x3 HEENT: Atraumatic, Other (minimal posterior oropharyngeal erythema, without exudate or petechiae), Sclerae nonicteric Neck: JVD not distended Respiratory: Clear to auscultation bilaterally, Normal air movement Cardiovascular: No edema, Irregular heart rate/rhythm, Systolic murmur Gastrointestinal: Soft, Non-distended, No tenderness Musculoskeletal: No clubbing Integumentary: No rashes Neurological: Normal speech, Normal affect # Paroxysmal Atrial Fibrillation with Rapid Ventricular Response # Type II Non-ST Segment Elevation Myocardial Infarction (Demand Ischemia) due to above # Moderate Mitral Regurgitation Her [id number] = 5 (HTN=1, Age>75=2, DM=1, Sex=1), which warrants anticoagulation. - EKG reportedly without STEMI criteria, trend - Serial troponin: 111.0 -> 81.2 - Transthoracic echocardiogram = "1. normal left ventricular size and function 2. moderate mitral regurgitation 3. mild tricuspid regurgitation normal right ventricular systolic pressure 4. mitral annular calcification 5. aortic sclerosis" - Chest x-ray = "no acute cardiopulmonary abnormalities" - Consulted Cardiology and spoke with Dr. Gordon - recommendations appreciated - Recommended discontinuing amiodarone drip and starting metoprolol tartrate 50 mg BID - Continue enoxaparin for now - takes rivaroxaban at home # Sepsis likely secondary to Acute Sinusitis/possible Peritonsillar/ Parapharyngeal Soft Tissue Infection She met sepsis criteria based on temperature > 100.9 F, HR > 90 bpm, and WBC > 12,000 and the suspected source is upper respiratory. - Infectious Diseases consulted due to multiple antibiotic allergies and spoke with [employer] Alparbi - recommendations appreciated - CT neck soft tissue = " 1. Mild left peritonsillar and parapharyngeal edema, which may represent soft tissue infection. No discrete mass identified. Clinical correlation and follow-up recommended. No evidence of peritonsillar, retropharyngeal, or parapharyngeal abscess. 2. Paranasal sinus and nasal mucosal thickening with air-fluid levels in the ethmoid and maxillary sinuses, consistent with acute sinusitis. 3. 1.6 cm nodule in the left lobe of the thyroid. Recommend further evaluation and follow-up with thyroid ultrasound." - Sepsis order set was initiated - Group A Strep = negative - Initial Lactate was 1.9 - Blood cultures drawn before antibiotics were given - Broad spectrum antibiotics started: Vancoymcin + Meropenem per ID - In regards to fluids: - 30 mL/kg of IV fluids was not administered given SBP > 90, MAP > 65, lactic acid < 4 # KDIGO Stage I Acute Kidney Injury likely Pre-Renal - resolved - Nephrology consulted and spoke with Dr. 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 1.4 centimeter cystic mass left lobe of thyroid gland containing small nodules probably benign. Follow-up ultrasound in 1 year recommended for re-evaluation." - CT chest/abdomen/pelvis = "No definite acute process. 1.5 cm incidental left thyroid nodule. Recommend thyroid US." - Follow-up with PCP for further evaluation/surveillance imaging Randell Pierce M.D.
[2022-12-05] MEDS ORDERED: POTASS/SODIUM PHOSPHATE 1 PKT POWD.PACK PO SCH (20:00)
[2022-12-05] MEDS ORDERED: POTASSIUM CL SA 10 MEQ TAB PO ONE (20:00)
[2022-12-05] MEDS ORDERED: MAGNESIUM SULFATE 1 gm IVPB 1 GM/100 ML BAG IV ONE (21:00)
[2022-12-05] MEDS: POTASS/SODIUM PHOSPHATE 1 PKT POWD.PACK PO SCH (21:16)
[2022-12-06] MEDS: POTASS/SODIUM PHOSPHATE 1 PKT POWD.PACK PO SCH ×5 (02:14→11:33)
[2022-12-06] MEDS: VANCOMYCIN 1.25 GM in NA CHLORIDE 0.9% 250 ML IVPB SCH ×2 (03:05→21:54)
[2022-12-06 07:00] LABS: Phosphorus 1.8 mg/dL (2.5-4.9); Potassium 3.8 mEq/L (3.5-5.1)
[2022-12-06] MEDS: INSULIN -REGULAR HUMAN 50 UNIT/0.5 ML ML SQ SCH ×4 (07:30→20:54)
[2022-12-06] MEDS: DIGOXIN 0.25 MG TABLET PO SCH (08:54)
[2022-12-06] MEDS: ENOXAPARIN 60 MG/0.6 ML SQ SCH ×2 (08:54→20:53)
[2022-12-06] MEDS: METOPROLOL TAR 50 MG TAB PO SCH ×2 (08:55→20:53)
[2022-12-06] MEDS: Meropenem 1,000 MG in NA CHLORIDE 0.9% 100 ML IV SCH ×2 (08:59→20:53)
[2022-12-06] MEDS ORDERED: POTASSIUM CL SA 10 MEQ TAB PO ONE (09:00)
--- NOTE | 2022-12-06 13:12 | P.PN ---
Subjective Date of Service: 12/06/22 Chief Complaint: Afib RVR, Sepsis No acute events overnight. This morning, she was in atrial fibrillation with rapid ventricular response. Heart rate was in the 130s, but she was asymptomatic. Appreciate Cardiology recommendations. In regards to her infection, this seems to be improving. however, it will be difficult to discharge her on PO antibiotics due to multiple medication allergies. I spoke with Dr. Costa, who recommended completing the 7 day course of vancomycin + meropenem in the hospital prior to discharge. Today is day 3 of 7. She denies any chest pain, palpitations, or shortness of breath. Review of Systems 10-point ROS is otherwise unremarkable Physical Examination - Vital Signs Temperature: 97.3 F Blood Pressure: 149/75 Pulse: 120 Respirations: 18 Pulse Ox (%): 99 Assessment And Plan - Plan - Physical Exam General: Alert, In no apparent distress, Oriented x3 HEENT: Atraumatic, Sclerae nonicteric Neck: JVD not distended Respiratory: Clear to auscultation bilaterally, Normal air movement Cardiovascular: No edema, Irregular heart rate/rhythm, Systolic murmur Gastrointestinal: Soft, Non-distended, No tenderness Musculoskeletal: No clubbing Integumentary: No rashes Neurological: Normal speech, Normal affect # Paroxysmal Atrial Fibrillation with Rapid Ventricular Response # Type II Non-ST Segment Elevation Myocardial Infarction (Demand Ischemia) due to above # Moderate Mitral Regurgitation Her [id number] = 5 (HTN=1, Age>75=2, DM=1, Sex=1), which warrants anticoagulation. - EKG reportedly without STEMI criteria, trend - Serial troponin: 111.0 -> 81.2 - Transthoracic echocardiogram = "1. normal left ventricular size and function 2. moderate mitral regurgitation 3. mild tricuspid regurgitation normal right ventricular systolic pressure 4. mitral annular calcification 5. aortic sclerosis" - Chest x-ray = "no acute cardiopulmonary abnormalities" - Consulted Cardiology and spoke with Dr. Gordon - recommendations appreciated - Recommended discontinuing amiodarone drip and starting metoprolol tartrate 50 mg BID - Continue enoxaparin for now - takes rivaroxaban at home # Sepsis likely secondary to Acute Sinusitis/possible Peritonsillar/Paraph aryngeal Soft Tissue Infection She met sepsis criteria based on temperature > 100.9 F, HR > 90 bpm, and WBC > 12,000 and the suspected source is upper respiratory. - Infectious Diseases consulted due to multiple antibiotic allergies and spoke with Dr. Costa - recommendations appreciated - He recommends completing 7-day course of vancomycin + meropenem in the hospital as there are very few PO options due to her medication allergies - Today is day 3 of 7 - CT neck soft tissue = " 1. Mild left peritonsillar and parapharyngeal edema, which may represent soft tissue infection. No discrete mass identified. Clinical correlation and follow-up recommended. No evidence of peritonsillar, retropharyngeal, or parapharyngeal abscess. 2. Paranasal sinus and nasal mucosal thickening with air-fluid levels in the ethmoid and maxillary sinuses, consistent with acute sinusitis. 3. 1.6 cm nodule in the left lobe of the thyroid. Recommend further evaluation and follow-up with thyroid ultrasound." - Sepsis order set was initiated - Group A Strep = negative - Initial Lactate was 1.9 - Blood cultures drawn before antibiotics were given - Broad spectrum antibiotics started: Vancoymcin + Meropenem per ID - In regards to fluids: - 30 mL/kg of IV fluids was not administered given SBP > 90, MAP > 65, lactic acid < 4 # KDIGO Stage I Acute Kidney Injury likely Pre-Renal - resolved - Nephrology consulted - recommendations appreciated - Creatinine = 1.44 -> 1.00 -> 0.86 - Urinalysis = 1+ glucose, 510 hyaline casts, 1+ protein - Monitor creatinine and urine output - If worsening, obtain renal ultrasound - Renally dose medications # Hyperglycemia in Type 2 Diabetes Mellitus - Hgb A1c = 6.7 % - Correction scale insulin # Hypertension # Hyperlipidemia - Reconcile home medications once verified # 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 1.4 centimeter cystic mass left lobe of thyroid gland containing small nodules probably benign. Follow-up ultrasound in 1 year recommended for re-evaluation." - CT chest/abdomen/pelvis = "No definite acute process. 1.5 cm incidental left thyroid nodule. Recommend thyroid US." - Follow-up with PCP for further evaluation/surveillance imaging Randell Pierce M.D.
[2022-12-06] MEDS: HYDRALAZINE HCL 25 MG TABLET PO SCH (20:53)
[2022-12-07 03:48] LABS: Magnesium 1.8 mg/dL (1.6-2.4); Phosphorus 1.9 mg/dL (2.5-4.9); Potassium 3.7 mEq/L (3.5-5.1)
[2022-12-07] MEDS: INSULIN -REGULAR HUMAN 50 UNIT/0.5 ML ML SQ SCH ×4 (07:30→21:00)
[2022-12-07] MEDS: HYDRALAZINE HCL 25 MG TABLET PO SCH ×2 (08:39→21:07)
[2022-12-07] MEDS: DIGOXIN 0.25 MG TABLET PO SCH (08:39)
[2022-12-07] MEDS: Meropenem 1,000 MG in NA CHLORIDE 0.9% 100 ML IV SCH ×2 (08:40→21:02)
[2022-12-07] MEDS: ENOXAPARIN 60 MG/0.6 ML SQ SCH ×2 (08:40→21:02)
[2022-12-07] MEDS: METOPROLOL TAR 50 MG TAB PO SCH (08:44)
[2022-12-07] MEDS ORDERED: POTASSIUM CL SA 10 MEQ TAB PO ONE (09:00)
--- NOTE | 2022-12-07 09:18 | P.PN ---
Date of Service: 12/07/22 Subjective: No C/O voiced, Improving Patient sitting up in bed, alert and oriented x2. breathing comfortably on room air. Denies sore throat, nasal congestion or nasal discharge. Denies any neck pain, chest pain or abdominal pain. Denies any nausea, vomiting or diarrhea. Denies shortness of breath or palpitations. Overall improving. Physical Examination - Vital Signs Temp Pulse Resp BP Pulse Ox 98.3 F 117 H 16 148/83 H 99 12/07/22 08:00 12/07/22 08:44 12/07/22 08:00 12/07/22 08:44 12/07/22 08:00 - Physical Examination General: Alert, In no apparent distress, Oriented x2 HEENT: Atraumatic, Normocephalic Neck: Supple, JVD not distended Respiratory: Clear to auscultation bilaterally Cardiovascular: No edema, Normal pulses, Irregular heart rate/rhythm Gastrointestinal: Normal bowel sounds, Soft and benign, Non-distended Musculoskeletal: No clubbing, No swelling, No erythema, No tenderness, No warmth Integumentary: No rashes, No breakdown Neurological: Normal tone, Normal affect - Studies Laboratory Data - Reviewed Imagings Data: - CT Soft Tissue Neck 12/03 Findings: "Mild left peritonsillar and parapharyngeal edema, which may represent soft tissue infection. No discrete mass identified. No evidence of peritonsillar, retropharyngeal, or parapharyngeal abscess. 2. Paranasal sinus and nasal mucosal thickening with air-fluid levels in the ethmoid and maxillary sinuses, consistent with acute sinusitis. 1.6 cm nodule in the left lobe of the thyroid" - CT Chest/Abdomen/Pelvis 12/03: "No definitive acute process" Microbiology Data - Group A Streptococcus Rapid Screen 12/03: Negative - Blood cultures 12/03: No growth to date - Throat culture 12/03: Normal upper respiratory vera grown Medications List Reviewed: Yes Impression & Plan Problem List - Acute Sinusitis - Soft tissue infection, throat - Sepsis - Atrial Fibrillation with RVR - Moderate protein-calorie malnutrition Sepsis / Acute Sinusitus / possible soft tissue infection peritonsilar,parapharyngeal - Group A Strep rapid screen: negative - Blood cultures 12/03: No growth to date - Throat culture 12/03: Normal upper respiratory vera grown - Leukocytosis resolved, afebrile - Patient has multiple medication/antibiotic allergies listed including ciprofloxacin, clindamycin, amoxicillin, clarithromycin. When asked the type of reaction she has experienced with previous antibiotics, patient reported nausea. Denied any rashes, itching/hives, wheezing, swelling of face lips tongue or throat. However patient is a poor historian-avoidance of these medications for patient safety; limits choice of PO medications - Currently on IV Vancomycin and Merrem Recommendations - Continue IV Vancomycin and Merrem x 7 days (day 4/7) - Nutritional supplementation ID will continue to follow patient closely Case discussed with Caridad Botello.
[2022-12-07] MEDS ORDERED: MAGNESIUM SULFATE 1 gm IVPB 1 GM/100 ML BAG IV ONE (10:00)
[2022-12-07] MEDS: POTASS/SODIUM PHOSPHATE 1 PKT POWD.PACK PO SCH ×3 (10:16→11:58)
[2022-12-07] MEDS: ACETAMINOPHEN 500 MG TAB PO PRN ×2 (11:27→21:02)
[2022-12-07] MEDS: VANCOMYCIN 1.25 GM in NA CHLORIDE 0.9% 250 ML IVPB SCH (15:44)
--- NOTE | 2022-12-07 18:30 | P.PN ---
Subjective Date of Service: 12/07/22 Chief Complaint: Afib RVR, Sepsis No acute events overnight. She continues to experience intermittent episodes of atrial fibrillation with rapid ventricular response. Spoke with Dr. Gordon, who recommended switching her metoprolol to sotalol. Per Dr. Costa, plan is to complete the 7 day course of vancomycin + meropenem in the hospital prior to discharge due to multiple medication allergies. Today is day 4 of 7. She denies any chest pain, palpitations, or shortness of breath. Review of Systems 10-point ROS is otherwise unremarkable General: Weakness (generalized) Physical Examination - Vital Signs Temperature: 97.3 F Blood Pressure: 139/81 Pulse: 63 Respirations: 14 Pulse Ox (%): 98 Assessment And Plan - Plan - Physical Exam General: Alert, In no apparent distress, Oriented x3 HEENT: Atraumatic, Sclerae nonicteric Neck: JVD not distended Respiratory: Clear to auscultation bilaterally, Normal air movement Cardiovascular: No edema, Irregular heart rate/rhythm, Systolic murmur Gastrointestinal: Soft, Non-distended, No tenderness Musculoskeletal: No clubbing Integumentary: No rashes Neurological: Normal speech, Normal affect # Paroxysmal Atrial Fibrillation with Rapid Ventricular Response # Type II Non-ST Segment Elevation Myocardial Infarction (Demand Ischemia) due to above # Moderate Mitral Regurgitation Her [id number] = 5 (HTN=1, Age>75=2, DM=1, Sex=1), which warrants anticoagulation. - EKG reportedly without STEMI criteria, trend - Serial troponin: 111.0 -> 81.2 - Transthoracic echocardiogram = "1. normal left ventricular size and function 2. moderate mitral regurgitation 3. mild tricuspid regurgitation normal right ventricular systolic pressure 4. mitral annular calcification 5. aortic sclerosis" - Chest x-ray = "no acute cardiopulmonary abnormalities" - Consulted Cardiology and spoke with Dr. Gordon - recommendations appreciated - Recommended switching metoprolol tartrate 50 mg BID to sotalol 80 mg PO BID - Continue enoxaparin for now - takes rivaroxaban at home # Sepsis likely secondary to Acute Sinusitis/possible Peritonsillar/Parapharyngeal Soft Tissue Infection She met sepsis criteria based on temperature > 100.9 F, HR > 90 bpm, and WBC > 12,000 and the suspected source is upper respiratory. - Infectious Diseases consulted due to multiple antibiotic allergies and spoke with Dr. Costa - recommendations appreciated - He recommends completing 7-day course of vancomycin + meropenem in the hospital as there are very few PO options due to her medication allergies - Today is day 4 of 7 - CT neck soft tissue = " 1. Mild left peritonsillar and parapharyngeal edema, which may represent soft tissue infection. No discrete mass identified. Clinical correlation and follow-up recommended. No evidence of peritonsillar, retropharyngeal, or parapharyngeal abscess. 2. Paranasal sinus and nasal mucosal thickening with air-fluid levels in the ethmoid and maxillary sinuses, consistent with acute sinusitis. 3. 1.6 cm nodule in the left lobe of the thyroid. Recommend further evaluation and follow-up with thyroid ultrasound." - Sepsis order set was initiated - Group A Strep = negative - Initial Lactate was 1.9 - Blood cultures drawn before antibiotics were given - Broad spectrum antibiotics started: Vancoymcin + Meropenem per ID - In regards to fluids: - 30 mL/kg of IV fluids was not administered given SBP > 90, MAP > 65, lactic acid < 4 # KDIGO Stage I Acute Kidney Injury likely Pre-Renal - resolved - Nephrology consulted - recommendations appreciated - Creatinine = 1.44 -> 1.00 -> 0.86 - Urinalysis = 1+ glucose, 510 hyaline casts, 1+ protein - Monitor creatinine and urine output - If worsening, obtain renal ultrasound - Renally dose medications # Hyperglycemia in Type 2 Diabetes Mellitus - Hgb A1c = 6.7 % - Correction scale insulin # Hypertension # Hyperlipidemia - Reconcile home medications once verified # 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 1.4 centimeter cystic mass left lobe of thyroid gland containing small nodules probably benign. Follow-up ultrasound in 1 year recommended for re-evaluation." - CT chest/abdomen/pelvis = "No definite acute process. 1.5 cm incidental left thyroid nodule. Recommend thyroid US." - Follow-up with PCP for further evaluation/surveillance imaging Randell Pierce M.D.
[2022-12-07] MEDS: SOTALOL HCL 80 MG TAB PO SCH (18:32)
--- NOTE | 2022-12-07 19:38 | P.PN ---
Date of Service: 12/07/22 Vital Signs Temp Pulse Resp BP Pulse Ox 97.3 F 63 14 139/81 98 12/07/22 18:28 12/07/22 18:28 12/07/22 18:28 12/07/22 18:28 12/07/22 18:28 Medications Acetaminophen (Acetaminophen 500 Mg Tab) 500 mg PO Q4HP PRN PRN Reason: TEMP > 100' F Last Admin: 12/07/22 11:27 Dose: 500 mg Digoxin (Digoxin 0.25 Mg Tablet) 0.25 mg PO DAILY [facility] Last Admin: 12/07/22 08:39 Dose: 0.25 mg Enoxaparin Sodium (Enoxaparin 60 Mg/0.6 Ml) 60 mg SQ Q12HR [facility] Last Admin: 12/07/22 08:40 Dose: 60 mg Hydralazine HCl (Hydralazine Hcl 25 Mg Tablet) 25 mg PO BID [facility] Last Admin: 12/07/22 08:39 Dose: 25 mg Meropenem 1,000 mg/ Sodium (Chloride) 100 mls @ 200 mls/hr IV Q12HR [facility] Last Admin: 12/07/22 08:40 Dose: 100 mls Vancomycin HCl 1.25 gm/ Sodium (Chloride) 250 mls @ 166.667 mls/hr IVPB Q24H [facility] Insulin Human Regular (Insulin -Regular Human 50 Unit/0.5 Ml Ml) 0 unit SQ ACHS [facility]; Protocol Last Admin: 12/07/22 16:17 Dose: Not Given Ondansetron HCl (Ondansetron 4 Mg/2 Ml Vial) 4 mg IV Q6HP PRN PRN Reason: NAUSEA / VOMITING Sodium Chloride (Flush Normal Saline 10 Ml) 10 ml IV BID [facility] Last Admin: 12/07/22 08:41 Dose: 10 ml Sotalol HCl (Sotalol Hcl 80 Mg Tab) 80 mg PO BID 6AM 6PM [facility] Last Admin: 12/07/22 18:32 Dose: 80 mg Microbiology Results 12/03/22 03:26 Throat Culture & Sensitivity - Final NORMAL UPPER RESPIRATORY ELIUD GROWN. 12/03/22 00:13 Blood - Blood Aerobic Blood Culture - Preliminary No growth in 24 hours. 12/03/22 00:13 Blood - Blood Anaerobic Blood Culture - Preliminary No growth in 24 hours. 12/03/22 00:05 Blood - Blood Aerobic Blood Culture - Preliminary No growth in 24 hours. 12/03/22 00:05 Blood - Blood Anaerobic Blood Culture - Preliminary No growth in 24 hours. 12/03/22 03:26 Throat Group A Streptococcus Rapid Screen - Final Assessment/ Plan: Nephrology No dyspnea No chest pain Fatigue and weakness No acute events overnight Vitals, medications, blood work and imaging reviewed in the chart. NAD. NCAT. MMM. Neck supple. Normal respiratory effort. RRR. Abd ND. No C/C. LE Edema. No rash. AAO. Normal speech. KOBY likely due to hypovolemia, resolved CKD II with Proteinuria -No NSAIDs Hypokalemia -Replete potassium Hypercalcemia -Check labs Hypophosphatemia -Encourage nutrition HTN with CKD -Continue Hydralazine DM II with CKD -RISS
--- NOTE | 2022-12-07 19:46 | PN ---
Date of Progress Note: 12/07/2022 Ms. Kimball came in with sepsis. Has been on antibiotics since she has been here. She was found to hav e atrial fibrillation, which we think is chronic, but that she was taking Xarelto. We tried IV amiod arone and her rate was controlled, but she did not convert. We put her on beta blockers. Her heart rate is better controlled, but still did not convert. The patient takes Xarelto. She is on Lovenox, now as stated Xarelto. Her mental status has drastically improved. I recommended we change her atr ial fibrillation to sotalol 80 mg 1 p.o. b.i.d. Since the atrial fibrillation is of unknown duration , she will have to be on blood thinner for about 3 weeks before we can do a cardioversion. I will di scuss the case further with Dr. Pierce. She does have an echocardiogram that showed some diastolic dy sfunction, but normal ejection fraction. MICAELA/PRISCILLA Voice ID: [id number] Report ID: [id number]
[2022-12-08 04:14] LABS: Absolute Lymphocytes (CBC) 1.4 K/uL (0.7-4.9); Hematocrit 34.9 % (36.0-45.0); Lymphocytes % 12.9 % (15.3-44.8); MCV 92.9 fL (80-100); MPV 7.6 fL (7.6-11.3); RBC Red Blood Cell Count 3.75 M/uL (3.86-4.86)
[2022-12-08 04:30] LABS: Magnesium 1.9 mg/dL (1.6-2.4); Phosphorus 2.3 mg/dL (2.5-4.9); Potassium 3.7 mEq/L (3.5-5.1); Uric Acid 3.8 mg/dL (2.6-6.0)
[2022-12-08] MEDS: SOTALOL HCL 80 MG TAB PO SCH ×3 (05:57→21:00)
[2022-12-08] MEDS ORDERED: POTASSIUM 25 MEQ EFFERV TAB PO ONE ×2 (07:30→09:00)
[2022-12-08] MEDS: INSULIN -REGULAR HUMAN 50 UNIT/0.5 ML ML SQ SCH ×4 (07:30→21:00)
[2022-12-08] MEDS: Meropenem 1,000 MG in NA CHLORIDE 0.9% 100 ML IV SCH ×3 (09:00→17:12)
[2022-12-08] MEDS: POTASS/SODIUM PHOSPHATE 1 PKT POWD.PACK PO SCH ×3 (09:21→11:43)
[2022-12-08] MEDS: DIGOXIN 0.25 MG TABLET PO SCH (09:22)
[2022-12-08] MEDS: HYDRALAZINE HCL 25 MG TABLET PO SCH ×2 (09:22→22:14)
[2022-12-08] MEDS: ENOXAPARIN 60 MG/0.6 ML SQ SCH ×2 (09:23→22:13)
--- NOTE | 2022-12-08 10:13 | P.PN ---
Date of Service: 12/08/22 Subjective: No C/O voiced, Improving Patient sitting up in bed, alert and oriented x3. breathing comfortably on room air. Reports overall feeling better. Denies sore throat, nasal congestion or nasal discharge. Denies any neck pain, chest pain or abdominal pain. Denies any nausea, vomiting or diarrhea. Denies shortness of breath or palpitations. Physical Examination - Vital Signs Temp Pulse Resp BP Pulse Ox 99.1 F 125 H 26 H 160/98 H 98 12/08/22 08:00 12/08/22 08:00 12/08/22 08:00 12/08/22 08:00 12/08/22 08:00 - Physical Examination General: Alert, In no apparent distress, Oriented x3 HEENT: Atraumatic, Normocephalic Neck: Supple, JVD not distended Respiratory: Clear to auscultation bilaterally Cardiovascular: No edema, Normal pulses, Irregular heart rate/rhythm Gastrointestinal: Normal bowel sounds, Soft and benign, Non-distended Musculoskeletal: No clubbing, No swelling, No erythema, No tenderness Integumentary: No rashes, No breakdown Neurological: Normal tone, Normal affect - Studies Laboratory Data - Reviewed Imagings Data: - CT Soft Tissue Neck 12/03 Findings: "Mild left peritonsillar and parapharyn geal edema, which may represent soft tissue infection. No discrete mass identified. No evidence of peritonsillar, retropharyngeal, or parapharyngeal abscess. 2. Paranasal sinus and nasal mucosal thickening with air-fluid levels in the ethmoid and maxillary sinuses, consistent with acute sinusitis. 1.6 cm nodule in the left lobe of the thyroid" - CT Chest/Abdomen/Pelvis 12/03: "No definitive acute process" Microbiology Data - Group A Streptococcus Rapid Screen 12/03: Negative - Blood cultures 12/03: No growth to date - Throat culture 12/03: Normal upper respiratory vera grown Medications List Reviewed: Yes Impression & Plan Problem List - Acute Sinusitis - Soft tissue infection, throat - Sepsis - Atrial Fibrillation with RVR - Moderate protein-calorie malnutrition Sepsis / Acute Sinusitus / possible soft tissue infection peritonsilar,parapharyngeal - Group A Strep rapid screen: negative - Blood cultures 12/03: No growth to date - Throat culture 12/03: Normal upper respiratory vera grown - Leukocytosis resolved, afebrile - Patient has multiple medication/antibiotic allergies listed including ciprofloxacin, clindamycin, amoxicillin, clarithromycin. When asked the type of reaction she has experienced with previous antibiotics, patient reported nausea. Denied any rashes, itching/hives, wheezing, swelling of face lips tongue or throat. However patient is a poor historian-avoidance of these medications for patient safety; limits choice of PO medications - Patient was started on empiric antibiotics Doxycycline and Vancomycin on 12/03. Doxycline d/c on morning of 12/04, Merrem was added 12/04. - On IV Vancomycin (12/03-) and Merrem (12/04-) - Current total days on antibiotics: 6 Recommendations - On IV Vancomycin and Merrem - Continue antibiotic therapy for 7 days duration; currently on abx day 01/27 - Nutritional supplementation ID will continue to follow patient as needed and monitor WBC and fever trends Case discussed with Lucero Botello
[2022-12-08] MEDS: VANCOMYCIN 1.25 GM in NA CHLORIDE 0.9% 250 ML IVPB SCH (15:17)
[2022-12-08] MEDS ORDERED: METOPROLOL TARTRATE 5 MG/5 ML INJ IV STA ×3 (16:33→20:19)
--- NOTE | 2022-12-08 16:55 | PN ---
Date of Progress Note: 12/08/2022 Ms. Kimball had came in with sepsis, atrial fibrillation that is chronic. Has been taking Xarelto, but her rate has been high in the 120s to 140s. She was started on sotalol yesterday 80 mg b.i.d. She r emained in rapid AFib at about 120. We will consider going up to the amiodarone dose to 160 and cons ider cardioversion. I will discuss the case further with Dr. Bello. We tried IV amiodarone when she came in, but for more than 48 hours, her heart rate and her rhythm never changed. She may end up evaristo ntually needing something more drastic session an ablation or a pacemaker, but we will deal with that as an outpatient. For now, we will continue to follow her. MICAELA/PRISCILLA Voice ID: [id number] Report ID: [id number]
--- NOTE | 2022-12-08 20:34 | P.PN ---
Date of Service: 12/08/22 Vital Signs Temp Pulse Resp BP Pulse Ox 98.6 F 144 H 24 H 140/90 98 12/08/22 16:00 12/08/22 18:43 12/08/22 16:00 12/08/22 18:43 12/08/22 16:00 Medications Acetaminophen (Acetaminophen 500 Mg Tab) 500 mg PO Q4HP PRN PRN Reason: TEMP > 100' F Last Admin: 12/07/22 21:02 Dose: 500 mg Digoxin (Digoxin 0.25 Mg Tablet) 0.25 mg PO DAILY [facility] Last Admin: 12/08/22 09:22 Dose: 0.25 mg Enoxaparin Sodium (Enoxaparin 60 Mg/0.6 Ml) 60 mg SQ Q12HR [facility] Last Admin: 12/08/22 09:23 Dose: 60 mg Hydralazine HCl (Hydralazine Hcl 25 Mg Tablet) 25 mg PO BID [facility] Last Admin: 12/08/22 09:22 Dose: 25 mg Vancomycin HCl 1.25 gm/ Sodium (Chloride) 250 mls @ 166.667 mls/hr IVPB Q24H [facility] Last Admin: 12/08/22 15:17 Dose: 250 mls Meropenem 1,000 mg/ Sodium (Chloride) 100 mls @ 200 mls/hr IV Q8HR [facility] Last Admin: 12/08/22 17:12 Dose: 100 mls Insulin Human Regular (Insulin -Regular Human 50 Unit/0.5 Ml Ml) 0 unit SQ ACHS [facility]; Protocol Last Admin: 12/08/22 16:30 Dose: Not Given Metoprolol Tartrate (Metoprolol Tartrate 5 Mg/5 Ml Inj) 5 mg IV 1X STA Stop: 12/08/22 20:20 Ondansetron HCl (Ondansetron 4 Mg/2 Ml Vial) 4 mg IV Q6HP PRN PRN Reason: NAUSEA / VOMITING Sodium Chloride (Flush Normal Saline 10 Ml) 10 ml IV BID [facility] Last Admin: 12/08/22 09:24 Dose: 10 ml Sotalol HCl (Sotalol Hcl 80 Mg Tab) 80 mg PO BID 6AM 6PM [facility] Last Admin: 12/08/22 18:00 Dose: Not Given Microbiology Results 12/03/22 00:13 Blood - Blood Aerobic Blood Culture - Final No growth in 5 days. 12/03/22 00:13 Blood - Blood Anaerobic Blood Culture - Final No growth in 5 days. 12/03/22 00:05 Blood - Blood Aerobic Blood Culture - Final No growth in 5 days. 12/03/22 00:05 Blood - Blood Anaerobic Blood Culture - Final No growth in 5 days. 12/03/22 03:26 Throat Culture & Sensitivity - Final NORMAL UPPER RESPIRATORY ELIUD GROWN. 12/03/22 03:26 Throat Group A Streptococcus Rapid Screen - Final Assessment/ Plan: Nephrology No dyspnea No chest pain Neck pain +BM Fatigue and weakness No acute events overnight Vitals, medications, blood work and imaging reviewed in the chart. NAD. NCAT. MMM. Neck supple. Normal respiratory effort. RRR. Abd ND. No C/C. LE Edema none. No rash. AAO. Normal speech. KOBY likely due to hypovolemia, resolved CKD II with Proteinuria -No NSAIDs Hypokalemia -Replete potassium prn Hypercalcemia Primary HyperPTH -Labs pending Hypophosphatemia -Encourage nutrition -Neutraphos prn HTN with CKD -Continue Hydralazine DM II with CKD -RISS
--- NOTE | 2022-12-08 21:02 | P.PN ---
Subjective Date of Service: 12/08/22 Chief Complaint: Afib RVR, Sepsis No acute events overnight. She continues to develop intermittent episodes of atrial fibrillation with rapid ventricular response. Spoke with Dr. Gordon, who recommended increasing her sotalol dosage. Despite rapid heart rates, she denies any chest pain, palpitations, or shortness of breath. Review of Systems 10-point ROS is otherwise unremarkable Physical Examination - Vital Signs Temperature: 98.6 F Blood Pressure: 120/84 Pulse: 144 Respirations: 24 Pulse Ox (%): 98 - Studies Microbiology Data (last 24 hrs): 12/03/22 00:13 Blood - Blood Aerobic Blood Culture - Final No growth in 5 days. 12/03/22 00:13 Blood - Blood Anaerobic Blood Culture - Final No growth in 5 days. 12/03/22 00:05 Blood - Blood Aerobic Blood Culture - Final No growth in 5 days. 12/03/22 00:05 Blood - Blood Anaerobic Blood Culture - Final No growth in 5 days. Assessment And Plan - Plan - Physical Exam General: Alert, In no apparent distress, Oriented x3 HEENT: Atraumatic, Sclerae nonicteric Neck: JVD not distended Respiratory: Clear to auscultation bilaterally, Normal air movement Cardiovascular: No edema, Irregular heart rate/rhythm, Systolic murmur Gastrointestinal: Soft, Non-distended, No tenderness Musculoskeletal: No clubbing Integumentary: No rashes Neurological: Normal speech, Normal affect # Paroxysmal Atrial Fibrillation with Rapid Ventricular Response # Type II Non-ST Segment Elevation Myocardial Infarction (Demand Ischemia) due to above # Moderate Mitral Regurgitation Her [id number] = 5 (HTN=1, Age>75=2, DM=1, Sex=1), which warrants anticoagulation. - EKG reportedly without STEMI criteria, trend - Serial troponin: 111.0 -> 81.2 - Transthoracic echocardiogram = "1. normal left ventricular size and function 2. moderate mitral regurgitation 3. mild tricuspid regurgitation normal right ventricular systolic pressure 4. mitral annular calcification 5. aortic sclerosis" - Chest x-ray = "no acute cardiopulmonary abnormalities" - Consulted Cardiology and spoke with Dr. Gordon - recommendations appreciated - Recommended increasing sotalol to 160 mg PO BID - Continue enoxaparin for now - takes rivaroxaban at home # Sepsis likely secondary to Acute Sinusitis/possible Peritonsillar/Parapharyngeal Soft Tissue Infection She met sepsis criteria based on temperature > 100.9 F, HR > 90 bpm, and WBC > 12,000 and the suspected source is upper respiratory. - Infectious Diseases consulted due to multiple antibiotic allergies and spoke with Dr. Costa - recommendations appreciated - He recommends completing 7-day course of vancomycin + meropenem in the hospital as there are very few PO options due to her medication allergies - Today is day 5 of 7 - CT neck soft tissue = " 1. Mild left peritonsillar and parapharyngeal edema, which may represent soft tissue infection. No discrete mass identified. Clinical correlation and follow-up recommended. No evidence of peritonsillar, retropharyngeal, or parapharyngeal abscess. 2. Paranasal sinus and nasal mucosal thickening with air-fluid levels in the ethmoid and maxillary sinuses, consistent with acute sinusitis. 3. 1.6 cm nodule in the left lobe of the thyroid. Recommend further evaluation and follow-up with thyroid ultrasound." - Sepsis order set was initiated - Group A Strep = negative - Initial Lactate was 1.9 - Blood cultures drawn before antibiotics were given - Broad spectrum antibiotics started: Vancoymcin + Meropenem per ID - In regards to fluids: - 30 mL/kg of IV fluids was not administered given SBP > 90, MAP > 65, lactic acid < 4 # KDIGO Stage I Acute Kidney Injury likely Pre-Renal - resolved - Nephrology consulted - recommendations appreciated - Creatinine = 1.44 -> 1.00 -> 0.86 -> 0.78 - Urinalysis = 1+ glucose, 510 hyaline casts, 1+ protein - Monitor creatinine and urine output - If worsening, obtain renal ultrasound - Renally dose medications # Hyperglycemia in Type 2 Diabetes Mellitus - Hgb A1c = 6.7 % - Correction scale insulin # Hypertension # Hyperlipidemia - Reconcile home medications once verified # 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 1.4 centimeter cystic mass left lobe of thyroid gland containing small nodules probably benign. Follow-up ultrasound in 1 year recommended for re-evaluation." - CT chest/abdomen/pelvis = "No definite acute process. 1.5 cm incidental left thyroid nodule. Recommend thyroid US." - Follow-up with PCP for further evaluation/surveillance imaging Randell Pierce M.D.
[2022-12-09] MEDS ORDERED: MAGNESIUM SULFATE 1 gm IVPB 1 GM/100 ML BAG IV ONE (00:20)
[2022-12-09] MEDS: Meropenem 1,000 MG in NA CHLORIDE 0.9% 100 ML IV SCH ×3 (00:47→18:02)
[2022-12-09 04:12] LABS: Albumin 2.2 g/dL (3.4-5.0); Bilirubin Total 0.6 mg/dL (0.2-1.0); Phosphorus 2.9 mg/dL (2.5-4.9); Potassium 3.7 mEq/L (3.5-5.1); Protein, Total 6.2 g/dL (6.4-8.2)
[2022-12-09 05:07] LABS: Thyroid Stimulating Hormone 0.538 uIU/mL (0.358-3.740)
[2022-12-09] MEDS: SOTALOL HCL 80 MG TAB PO SCH ×2 (06:00→18:02)
[2022-12-09] MEDS: INSULIN -REGULAR HUMAN 50 UNIT/0.5 ML ML SQ SCH ×4 (07:30→20:57)
[2022-12-09] MEDS ORDERED: POTASSIUM CL SA 10 MEQ TAB PO ONE (09:00)
--- NOTE | 2022-12-09 09:10 | P.PN ---
Date of Service: 12/09/22 Subjective: No C/O voiced, Improving Patient sitting in bed, not in apparent distress, breathing comfortably on room air. Denies any complaints at this time. No acute events reported overnight. Today is last day of IV antibiotics. Plan for d/c home tomorrow. Physical Examination - Vital Signs Temp Pulse Resp BP Pulse Ox 98.2 F 87 15 160/77 H 94 12/09/22 04:00 12/09/22 04:00 12/09/22 04:00 12/09/22 04:00 12/09/22 04:00 - Physical Examination General: Alert, In no apparent distress, Oriented x3 HEENT: Atraumatic, Normocephalic Neck: Supple, JVD not distended Respiratory: Clear to auscultation bilaterally, breathing comfortably on room air Cardiovascular: No edema, Normal pulses, Irregular heart rate/rhythm Gastrointestinal: Normal bowel sounds, Soft and benign, Non-distended Musculoskeletal: No clubbing, No swelling, No erythema, No tenderness Integumentary: No rashes, No breakdown Neurological: Normal tone, Normal affect - Studies Laboratory Data - Reviewed Imagings Data: - CT Soft Tissue Neck 12/03 Findings: "Mild left peritonsillar and parapharyngeal edema, which may represent soft tissue infection. No discrete mass identified. No evidence of peritonsillar, retropharyngeal, or parapharyngeal abscess. 2. Paranasal sinus and nasal mucosal thickening with air-fluid levels in the ethmoid and maxillary sinuses, consistent with acute sinusitis. 1.6 cm nodule in the left lobe of the thyroid" - CT Chest/Abdomen/Pelvis 12/03: "No definitive acute process" - 11/30 Chest XR: No acute findings Microbiology Data - Group A Streptococcus Rapid Screen 12/03: Negative - Blood cultures 12/03: No growth to date - Throat culture 12/03: Normal upper respiratory vera grown Medications List Reviewed: Yes Impression & Plan Problem List - Acute Sinusitis - Soft tissue infection, throat - Sepsis - Atrial Fibrillation with RVR - Moderate protein-calorie malnutrition Sepsis / Acute Sinusitus / possible soft tissue infection peritonsilar,parapharyngeal - Group A Strep rapid screen: negative - Blood cultures 12/03: No growth to date - Throat culture 12/03: Normal upper respiratory vera grown - Leukocytosis resolved, afebrile - Patient has multiple medication/antibiotic allergies listed including ciprofloxacin, clindamycin, amoxicillin, clarithromycin. When asked the type of reaction she has experienced with previous antibiotics, patient reported nausea. Denied any rashes, itching/hives, wheezing, swelling of face lips tongue or throat. However patient is a poor historian-avoidance of these medications for patient safety; limits choice of PO medications - Patient was started on empiric antibiotics Doxycycline and Vancomycin on 12/03; Doxycline d/c on morning of 12/04, Merrem was added 12/04. - On IV Vancomycin (12/03-) and Merrem (12/04-) - Current total days on antibiotics: 7 Recommendations - On IV Vancomycin and Merrem day 02/26 - Plan for d/c home tomorrow - Nutritional supplementation ID will follow patient as needed and monitor for signs of infection. Case discussed with Lucero Botello
--- NOTE | 2022-12-09 09:40 | PN ---
Ms. Kimball has been followed up for paroxysmal atrial fibrillation. Has came in with sepsis. She has improved from that standpoint. Her atrial fibrillation has been very resilient. We tried IV amiodar one. We tried beta-sander, but did not work. We tried sotalol at 80 twice a day, did not work, yes terday went up to 160 twice a day and that controlled her heart rate. Her heart rate is now in the 8 0s, occasionally in the 50s. We will decrease the dose back to 80 twice a day. She will eventually need to be on anticoagulation. She has diastolic dysfunction by echo, normal ejection fraction. Maverick n the road to have a cardioversion electrically or maybe even an ablation and a pacemaker, but we muriel person deal with that as an outpatient. We will continue to follow for now. MICAELA/PRISCILLA Voice ID: [id number] Report ID: [id number]
[2022-12-09] MEDS: DIGOXIN 0.25 MG TABLET PO SCH (09:48)
[2022-12-09] MEDS: HYDRALAZINE HCL 25 MG TABLET PO SCH ×2 (09:48→20:57)
[2022-12-09] MEDS: ENOXAPARIN 60 MG/0.6 ML SQ SCH ×2 (09:48→20:57)
[2022-12-09] MEDS ORDERED: Meropenem 1000 MG/VIAL IV ONE (09:51)
[2022-12-09] MEDS ORDERED: NA CHLORIDE 0.9% 100 ML ONE (09:52)
--- NOTE | 2022-12-09 12:33 | RAD REPORT ---
EXAM DESCRIPTION: XR Chest, 1 View CLINICAL HISTORY: The patient is 77 years old and is Female; afib rvr [facility] MAIN TECHNIQUE: Frontal view of the chest. COMPARISON: 12/03/2022 chest radiograph FINDINGS: LUNGS: Unremarkable. No consolidation. PLEURAL SPACE: Unremarkable. No pleural effusion. No pneumothorax. HEART: Stable. MEDIASTINUM: Stable prominence of the cardiac mediastinal silhouette, likely exaggerated due to por table technique, lordotic positioning, and patient body habitus. Calcified atherosclerosis of the tho racic aorta. BONES/JOINTS: Multilevel spondylosis with no acute osseous abnormality. IMPRESSION: No acute findings in the chest. Electronically signed by: Mick Brody MD 12/09/2022 12:51 AM CDT Due to temporary technical issues with the PACS/Fluency reporting system, reports are being signed by the in house radiologist without review as a courtesy to ensure prompt reporting. The interpreting r adiologist is fully responsible for the content of the report.
--- NOTE | 2022-12-09 14:48 | P.PN ---
Subjective Date of Service: 12/09/22 Chief Complaint: Afib RVR, Sepsis Subjective: No new changes, Improving Physical Examination - Vital Signs Temperature: 97.5 F Blood Pressure: 134/90 Pulse: 136 Respirations: 20 Pulse Ox (%): 99 - Physical Exam General: Alert HEENT: Atraumatic, Normocephalic Respiratory: Normal air movement Cardiovascular: Regular rate/rhythm, Normal S1 S2 Gastrointestinal: Soft and benign Musculoskeletal: No swelling Neurological: Normal speech Assessment And Plan - Plan # Paroxysmal Atrial Fibrillation with Rapid Ventricular Response # Type II Non-ST Segment Elevation Myocardial Infarction (Demand Ischemia) due to above # Moderate Mitral Regurgitation on rate control med of sotalol. cardiology following for med adjustment. anticoagulation therapy as per card recommendation. # Sepsis likely secondary to Acute Sinusitis/possible Peritonsillar/Parapharyngeal Soft Tissue Infection resolved. ID recommendation noted. antibiotics to be continued. # KDIGO Stage I Acute Kidney Injury likely Pre-Renal - resolved resolved. we will follow closely. 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 1.4 centimeter cystic mass left lobe of thyroid gland containing small nodules probably benign. Follow-up ultrasound in 1 year recommended for re-evaluation." - CT chest/abdomen/pelvis = "No definite acute process. 1.5 cm incidental left thyroid nodule. Recommend thyroid US." - Follow-up with PCP for further evaluation/surveillance imaging Randell Pierce M.D.
[2022-12-09] MEDS: VANCOMYCIN 1.25 GM in NA CHLORIDE 0.9% 250 ML IVPB SCH (15:56)
--- NOTE | 2022-12-09 23:31 | P.PN ---
Date of Service: 12/09/22 Vital Signs Temp Pulse Resp BP Pulse Ox 98.7 F 125 H 20 131/92 H 99 12/09/22 16:00 12/09/22 16:00 12/09/22 16:00 12/09/22 16:00 12/09/22 16:00 Medications Acetaminophen (Acetaminophen 500 Mg Tab) 500 mg PO Q4HP PRN PRN Reason: TEMP > 100' F Last Admin: 12/07/22 21:02 Dose: 500 mg Digoxin (Digoxin 0.25 Mg Tablet) 0.25 mg PO DAILY [facility] Last Admin: 12/09/22 09:48 Dose: 0.25 mg Enoxaparin Sodium (Enoxaparin 60 Mg/0.6 Ml) 60 mg SQ Q12HR [facility] Last Admin: 12/09/22 20:57 Dose: 60 mg Hydralazine HCl (Hydralazine Hcl 25 Mg Tablet) 25 mg PO BID [facility] Last Admin: 12/09/22 20:57 Dose: 25 mg Vancomycin HCl 1.25 gm/ Sodium (Chloride) 250 mls @ 166.667 mls/hr IVPB Q24H [facility] Last Admin: 12/09/22 15:56 Dose: 250 mls Meropenem 1,000 mg/ Sodium (Chloride) 100 mls @ 200 mls/hr IV Q8HR [facility] Last Admin: 12/09/22 18:02 Dose: 100 mls Insulin Human Regular (Insulin -Regular Human 50 Unit/0.5 Ml Ml) 0 unit SQ ACHS [facility]; Protocol Last Admin: 12/09/22 20:57 Dose: Not Given Ondansetron HCl (Ondansetron 4 Mg/2 Ml Vial) 4 mg IV Q6HP PRN PRN Reason: NAUSEA / VOMITING Sodium Chloride (Flush Normal Saline 10 Ml) 10 ml IV BID [facility] Last Admin: 12/09/22 20:57 Dose: 10 ml Sotalol HCl (Sotalol Hcl 80 Mg Tab) 80 mg PO BID 6AM 6PM [facility] Last Admin: 12/09/22 18:02 Dose: 80 mg Microbiology Results 12/03/22 00:13 Blood - Blood Aerobic Blood Culture - Final No growth in 5 days. 12/03/22 00:13 Blood - Blood Anaerobic Blood Culture - Final No growth in 5 days. 12/03/22 00:05 Blood - Blood Aerobic Blood Culture - Final No growth in 5 days. 12/03/22 00:05 Blood - Blood Anaerobic Blood Culture - Final No growth in 5 days. 12/03/22 03:26 Throat Culture & Sensitivity - Final NORMAL UPPER RESPIRATORY ELIUD GROWN. 12/03/22 03:26 Throat Group A Streptococcus Rapid Screen - Final Assessment/ Plan: Nephrology No dyspnea No chest pain Fatigue and weakness Ambulating with walker No acute events overnight Vitals, medications, blood work and imaging reviewed in the chart. NAD. NCAT. MMM. Neck supple. Normal respiratory effort. RRR. Abd ND. No C/C. LE Edema none. No rash. AAO. Normal speech. KOBY likely due to hypovolemia, resolved CKD II with Proteinuria -No NSAIDs Hypokalemia -Replete potassium prn Hypercalcemia Primary HyperPTH -Labs pending Hypophosphatemia -Encourage nutrition -Neutraphos prn HTN with CKD -Continue Hydralazine DM II with CKD -RISS
[2022-12-10] MEDS: Meropenem 1,000 MG in NA CHLORIDE 0.9% 100 ML IV SCH ×2 (01:00→08:53)
[2022-12-10 02:40] VITALS: O2SAT 96
[2022-12-10 04:13] LABS: Potassium 3.6 mEq/L (3.5-5.1)
[2022-12-10] MEDS: SOTALOL HCL 80 MG TAB PO SCH (05:47)
[2022-12-10] MEDS: INSULIN -REGULAR HUMAN 50 UNIT/0.5 ML ML SQ SCH ×2 (07:30→12:20)
[2022-12-10] MEDS: ENOXAPARIN 60 MG/0.6 ML SQ SCH (08:52)
[2022-12-10] MEDS: ACETAMINOPHEN 500 MG TAB PO PRN (08:52)
[2022-12-10] MEDS: HYDRALAZINE HCL 25 MG TABLET PO SCH (08:53)
[2022-12-10] MEDS: DIGOXIN 0.25 MG TABLET PO SCH (08:53)
--- NOTE | 2022-12-10 08:54 | P.PN ---
Date of Service: 12/10/22 Subjective: No C/O voiced, Improving Patient sitting in bed, not in apparent distress, breathing comfortably on room air. Denies any complaints at this time. No acute events reported overnight. Completed course of IV antibiotics x7 days (12/03-12/10). Physical Examination - Vital Signs Temp Pulse Resp BP Pulse Ox 97.8 F 91 H 16 132/84 98 12/10/22 08:00 12/10/22 08:00 12/10/22 08:00 12/10/22 08:00 12/10/22 08:00 - Physical Examination General: Alert, In no apparent distress, Oriented x3 HEENT: Atraumatic, Normocephalic Neck: Supple, JVD not distended Respiratory: Clear to auscultation bilaterally, breathing comfortably on room air Cardiovascular: No edema, Normal pulses, Irregular heart rate/rhythm Gastrointestinal: Normal bowel sounds, Soft and benign, Non-distended Musculoskeletal: No clubbing, No swelling, No erythema, No tenderness Integumentary: No rashes, No breakdown Neurological: Normal tone, Normal affect - Studies Laboratory Data - Reviewed Imagings Data: - CT Soft Tissue Neck 12/03 Findings: "Mild left peritonsillar and parapharyngeal edema, which may represent soft tissue infection. No discrete mass identified. No evidence of peritonsillar, retropharyngeal, or parapharyngeal abscess. 2. Paranasal sinus and nasal mucosal thickening with air-fluid levels in the ethmoid and maxillary sinuses, consistent with acute sinusitis. 1.6 cm nodule in the left lobe of the thyroid" - CT Chest/Abdomen/Pelvis 12/03: "No definitive acute process" - 11/30 Chest XR: No acute findings Microbiology Data - Group A Streptococcus Rapid Screen 12/03: Negative - Blood cultures 12/03: No growth to date - Throat culture 12/03: Normal upper respiratory vera grown Medications List Reviewed: Yes Impression & Plan Problem List - Acute Sinusitis - Soft tissue infection, throat - Sepsis - Atrial Fibrillation with RVR - Moderate protein-calorie malnutrition Sepsis / Acute Sinusitus / possible soft tissue infection peritonsilar,parapharyngeal - Group A Strep rapid screen: negative - Blood cultures 12/03: No growth to date - Throat culture 12/03: Normal upper respiratory vera grown - Leukocytosis resolved, afebrile - Patient has multiple medication/antibiotic allergies listed including ciprofloxacin, clindamycin, amoxicillin, clarithromycin. When asked the type of reaction she has experienced with previous antibiotics, patient reported nausea. Denied any rashes, itching/hives, wheezing, swelling of face lips tongue or throat. However patient is a poor historian-avoidance of these medications for patient safety; limits choice of PO medications - Patient was started on empiric antibiotics Doxycycline and Vancomycin on 12/03; Doxycline d/c on morning of 12/04, Merrem was added 12/04. - Completed 7 day course of IV Vancomycin (12/03-12/09) and Merrem (12/04-12/10) Recommendations - Pt has completed 7 day course of IV Vancomycin and Merrem - Current plan to d/c home once cleared from Cardiology standpoint ID will follow patient as needed Case discussed with Lucero Botello
[2022-12-10] MEDS ORDERED: POTASSIUM CL SA 10 MEQ TAB PO ONE (09:00)
--- NOTE | 2022-12-10 11:25 | PN ---
Date of Progress Note: 12/10/2022 Ms. Kimball has been seen today on 12/10/2022 for paroxysmal atrial fibrillation that has been resistant to amiodarone IV, as well as p.o. metoprolol. We finally put her on sotalol 80 mg 1 b.i.d. She is still on digoxin, Lovenox, hydralazine, as well as antibiotics. She is still in atrial fibrillation, rate is only in the 70s to 80s. She has a normal ejection fraction. No cardiac symptoms. We will continue present regimen. She can go home whenever it is okay with admitting physician and we will s ee her in the office as an outpatient. If her atrial fibrillation becomes symptomatic, we will consi vasile cardioversion and/or ablation. MICAELA/PRISCILLA Voice ID: [id number] Report ID: [id number]
[2022-12-10 11:58] VITALS: BP 113/58; TEMP 97.3
--- NOTE | 2022-12-10 13:01 | P.DS ---
Admission Date: 12/03/22 Discharge Date: 12/10/22 Disposition: DC HOME/HOME HEALTH CARE Discharge Condition: FAIR Reason for Admission: Afib RVR, Sepsis Brief History of Present Illness: 77-year-old female with history of insulin-dependent diabetes, hypertension, gout presents the emergency department for fevers, weakness, sore throat. Family reports that she began complaining of sore throat that started on Wednesday of this week and has been progressively getting worse since then. She was evaluated in the emergency department her labs were significant for leukocytosis white blood cell count of 15.2 platelets 135 5% bands creatinine 1.44 GFR 37 glucose 251 urinalysis negative for UTI COVID/influenza negative CT soft tissue neck was performed which revealed mild left peritonsillar and parapharyngeal edema which may represent soft tissue infection. No discrete mass identified. Paranasal sinus and nasal mucosal thickening with air-fluid levels in the ethmoid and maxillary sinuses consistent with acute sinusitis, 1.6 cm nodule in the left lobe of the thyroid recommend further evaluation follow-up with thyroid ultrasound. CT chest abdomen pelvis with IV contrast was also performed which was negative for acute processes again noted thyroid nodule. She was also noted to be in atrial fibrillation with rapid ventricular response with a rate of around 160-170, this is new onset for her. She is started on amiodarone drip which has improved her rate. Patient admitted for A-fib RVR and sepsis. Hospital Course: # Paroxysmal Atrial Fibrillation with Rapid Ventricular Response # Type II Non-ST Segment Elevation Myocardial Infarction (Demand Ischemia) due to above # Moderate Mitral Regurgitation Seen by cardiology Dr. Gordon and patient placed on sotalol Also anticoagulated with full dose Lovenox. Cardiology is planning follow-up as outpatient for either cardioversion or evaluation for ablation therapy. Currently rate controlled. # Sepsis likely secondary to Acute Sinusitis/possible Peritonsillar/Parapharyngeal Soft Tissue Infection resolved. Seen by ID. Patient completed 7 days of IV meropenem. She is discharged with Bactrim to continue treatment. # KDIGO Stage I Acute Kidney Injury likely Pre-Renal - resolved resolved. we will follow closely. # Hyperglycemia in Type 2 Diabetes Mellitus - Hgb A1c = 6.7 % -Blood sugar managed with corrective insulin. # Hypertension # Hyperlipidemia Nifedipine and Coreg discontinued Patient started on hydralazine. # 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 1.4 centimeter cystic mass left lobe of thyroid gland containing small nodules probably benign. Follow-up ultrasound in 1 year recommended for re-evaluation." - CT chest/abdomen/pelvis = "No definite acute process. 1.5 cm incidental left thyroid nodule. Recommend thyroid US." - Follow-up with PCP for further evaluation/surveillance imaging Vital Signs/Physical Exam: Temp Pulse Resp BP Pulse Ox 97.3 F 64 16 113/58 L 99 12/10/22 11:57 12/10/22 11:57 12/10/22 11:57 12/10/22 11:57 12/10/22 11:57 General: Alert, In no apparent distress, Oriented x3 HEENT: Mucous membr. moist/pink Neck: JVD not distended Respiratory: Clear to auscultation bilaterally, Normal air movement Cardiovascular: Regular rate/rhythm, Normal S1 S2 Gastrointestinal: Normal bowel sounds, Soft and benign, Non-distended, No tenderness Musculoskeletal: No swelling Integumentary: No rashes, No cyanosis Neurological: Normal strength at 5/5 x4 extr Laboratory Data at Discharge: WBC 10.90 thou/uL (4.3-10.9) 12/08/22 03:57 Hgb 11.9 g/dL (12.0-15.0) L 12/08/22 03:57 Hct 34.9 % (36.0-45.0) L 12/08/22 03:57 Plt Count 266 thou/uL (152-406) 12/08/22 03:57 PT 11.7 SECONDS (9.5-12.5) 12/03/22 01:40 INR 1.06 12/03/22 01:40 APTT 25.9 SECONDS (24.3-36.9) 12/03/22 01:40 Sodium 134 mEq/L (136-145) L 12/10/22 02:52 Potassium 3.6 mEq/L (3.5-5.1) 12/10/22 02:52 BUN 13 mg/dL (7-18) 12/10/22 02:52 Creatinine 0.81 mg/dL (0.55-1.02) 12/10/22 02:52 Glucose 137 mg/dL (74-106) H 12/10/22 02:52 Uric Acid 3.8 mg/dL (2.6-6.0) 12/08/22 03:57 Phosphorus 2.9 mg/dL (2.5-4.9) 12/09/22 02:56 Magnesium 1.9 mg/dL (1.6-2.4) 12/08/22 03:57 Total Bilirubin 0.6 mg/dL (0.2-1.0) 12/09/22 02:56 AST 10 U/L (15-37) L 12/09/22 02:56 ALT 18 U/L (13-56) 12/09/22 02:56 Alkaline Phosphatase 59 U/L (45-117) 12/09/22 02:56 Triglycerides 119 mg/dL (<150) 12/03/22 09:37 Cholesterol 184 mg/dL (<200) 12/03/22 09:37 HDL Cholesterol 60 mg/dL (40-60) 12/03/22 09:37 Cholesterol/HDL Ratio 3.07 12/03/22 09:37 Home Medications: Cholecalciferol (Vitamin D3) [Vitamin D 2,000 Unit Tab] 2 tab PO M,W,F 11/07/13 Magnesium Oxide [Mag 0X*] 1 tab PO DAILY 11/07/13 Pravastatin [Pravachol*] 40 mg PO BEDTIME 11/07/13 Ascorbic Acid [Vitamin C*] 1,000 mg PO DAILY 10/23/14 Furosemide [Lasix*] 40 mg PO DAILY 10/23/14 Cyclosporine [Restasis] 1 drop EACH EYE BID 12/05/22 Flaxseed Oil 1 tab PO DAILY 12/05/22 Insulin Degludec [Tresiba Flextouch U-200] 40 units SQ DAILY 12/05/22 Lactobacillus Acidophilus [Acidophilus Probiotic] 1 each PO DAILY 12/05/22 Spironolactone 25 mg PO DAILY 12/05/22 Digoxin [Lanoxin*] 0.25 mg PO DAILY #30 tab 12/10/22 Hydralazine [Apresoline*] 25 mg PO BID #60 tab 12/10/22 Rivaroxaban [Xarelto] 20 mg PO DAILY #30 tab 12/10/22 Sotalol HCl [Betapace*] 80 mg PO BID 6AM 6PM #60 tab 12/10/22 Sulfamethoxazole/Trimethoprim [Bactrim 400-80 mg Tablet] 1 each PO BID #10 tab 12/10/22 New Medications: Hydralazine [Apresoline*] 25 mg PO BID #60 tab Sulfamethoxazole/Trimethoprim [Bactrim 400-80 mg Tablet] 1 each PO BID #10 tab Sotalol HCl [Betapace*] 80 mg PO BID 6AM 6PM #60 tab Digoxin [Lanoxin*] 0.25 mg PO DAILY #30 tab Rivaroxaban [Xarelto] 20 mg PO DAILY #30 tab Diet: AHA Activity: Fall precautions Followup: Unknown,U [Primary Care Provider] - Omlan Santiago DO [ACTIVE - CAN ADMIT] - 1-2 Weeks Juan Manuel Grodon MD [ACTIVE - CAN ADMIT] - 1-2 Weeks Time spent managing pt's care (in minutes): 35
[2022-12-10] MEDS ORDERED: ENSURE CLEAR 200 ML CAN PO SCH (21:00)
[2022-12-10] MEDS ORDERED: SMZ./TMP. 800/160 MG TABLET PO SCH (21:00)
--- NOTE | 2022-12-10 22:05 | P.PN ---
Date of Service: 12/10/22 Vital Signs Temp Pulse Resp BP Pulse Ox 97.3 F 64 16 113/58 L 99 12/10/22 11:57 12/10/22 11:57 12/10/22 11:57 12/10/22 11:57 12/10/22 11:57 Microbiology Results 12/03/22 00:13 Blood - Blood Aerobic Blood Culture - Final No growth in 5 days. 12/03/22 00:13 Blood - Blood Anaerobic Blood Culture - Final No growth in 5 days. 12/03/22 00:05 Blood - Blood Aerobic Blood Culture - Final No growth in 5 days. 12/03/22 00:05 Blood - Blood Anaerobic Blood Culture - Final No growth in 5 days. 12/03/22 03:26 Throat Culture & Sensitivity - Final NORMAL UPPER RESPIRATORY ELIDU GROWN. 12/03/22 03:26 Throat Group A Streptococcus Rapid Screen - Final Assessment/ Plan: Nephrology No dyspnea No chest pain Fatigue and weakness Ambulating with walker No acute events overnight Vitals, medications, blood work and imaging reviewed in the chart. NAD. NCAT. MMM. Neck supple. Normal respiratory effort. RRR. Abd ND. No C/C. LE Edema none. No rash. AAO. Normal speech. KOBY likely due to hypovolemia, resolved CKD II with Proteinuria -No NSAIDs Hypokalemia -Replete potassium prn Hypercalcemia Primary HyperPTH -Labs pending Hypophosphatemia -Encourage nutrition -Neutraphos prn HTN with CKD -Continue Hydralazine DM II with CKD -RISS Case reviewed with Dr. Redman
[2022-12-12 15:57] LABS: Vitamin D 1,25-Dihydroxy Total 53 pg/mL (18-72); Vitamin D,1,25-OH2, D2 <8 pg/mL
== END 2022-12-10 17:32 | disposition home health service (06) | DRG 871 ==
LOC: ER 23:45 → ERHOLD 12-03 05:44 → 2ND 12-04 10:33
PROVIDERS: ADMIT Internal Medicine; ATTEND Internal Medicine
DX: A41.9 Sepsis, unspecified organism (principal); I21.A1 Myocardial infarction type 2; N17.9 Acute kidney failure, unspecified; I48.19 Other persistent atrial fibrillation; E44.0 Moderate protein-calorie malnutrition; Z16.39 Resistance to other specified antimicrobial drug; I12.9 Hypertensive chronic kidney disease with stage 1 through stage 4 chronic kidney disease, or unspecified chronic kidney disease; N18.2 Chronic kidney disease, stage 2 (mild); E11.22 Type 2 diabetes mellitus with diabetic chronic kidney disease; E11.65 Type 2 diabetes mellitus with hyperglycemia; M10.9 Gout, unspecified; E04.1 Nontoxic single thyroid nodule; E78.00 Pure hypercholesterolemia, unspecified; E83.52 Hypercalcemia; D69.6 Thrombocytopenia, unspecified; E86.0 Dehydration; E87.6 Hypokalemia; J01.90 Acute sinusitis, unspecified; E83.39 Other disorders of phosphorus metabolism; J02.9 Acute pharyngitis, unspecified; I08.3 Combined rheumatic disorders of mitral, aortic and tricuspid valves; Z88.1 Allergy status to other antibiotic agents; Z88.0 Allergy status to penicillin; Z88.5 Allergy status to narcotic agent; Z88.8 Allergy status to other drugs, medicaments and biological substances; Z79.4 Long term (current) use of insulin; Z68.23 Body mass index [BMI] 23.0-23.9, adult; Z79.01 Long term (current) use of anticoagulants; Z79.899 Other long term (current) drug therapy; Z20.822 Contact with and (suspected) exposure to COVID-19
CPT/HCPCS: 0240U; 36415; 51702; 70491; 71045; 71260; 74177; 76536; 80048; 80053; 80061; 80202; 81001; 82306; 82330; 82652; 82947; 83036; 83519; 83605; 83735; 83970; 84100; 84439; 84443; 84484; 84550; 85025; 85610; 85730; 87040; 87070; 87081; 93005; 93306; 97116; 97161; 97164; 97530; 99285; J0282; J1650; J1815; J2185; J3475; J7030; J7050; J7060; Q9967

== ENCOUNTER 2023-01-18 10:48 | Emergency (ER) | payer OTHER ==
--- OUTSIDE RECORDS SUMMARY | 2023-01-18 10:53 | XMS REPORT | Continuity of Care Document ---
:1945 Author Organization [facility] t Address [address] [place] [address] Care Team Providers Name Role Phone Asked, No Pcp Primary Care Physician Unavailable Juanito Brown Attending Clinician Unavailable Charanjit RG, Kimberly Mayer Attending Clinician Lai RG, Darrius Feng Attending Clinician [phone] Ayad RG, Star Attending Clinician Shaikh [...] it. Indometh Propensi Active Other (See 2018-08 [facility] acin ty to Comments) 08-28 adverse 00:00: Hospita reaction 00 l s to drug Lansopra Propensi Active Other (See 2018-08 [facility] zole ty to Comments) 08-28 adverse 00:00: Hospita reaction 00 l s to drug Lisinopr Propensi Active Other (See 2018-08 [facility] il ty to Comments) 08-28 adverse 00:00: Hospita reaction 00 l s to drug Naproxen Propensi Active Other (See 2018-08 [facility] ty to Comments) 08-28 adverse 00:00: Hospita reaction 00 l s to drug Propoxyp Propensi Active Other (See 2018-08 [facility] hene ty to Comments) 08-28 adverse 00:00: Hospita reaction 00 l s to drug Tramadol Propensi Active Other (See 2018-08 [facility] ty to Comments) 08-28 adverse 00:00: Hospita reaction 00 l s to drug Celecoxi Propensi Active Other (See 2018-08 [facility] b ty to Comments) 08-28 adverse 00:00: Hospita reaction 00 l s to drug Ciproflo Propensi Active Other (See 2018-08 [facility] xacin ty to Comments) 08-28 adverse 00:00: Hospita reaction 00 l s to drug Clarithr Propensi Active Other (See 2018-08 [facility] omycin ty to Comments) 08-28 adverse 00:00: Hospita reaction 00 l s to drug Clindamy Propensi Active Other (See 2018-08 [facility] jeffrey ty to Comments) 08-28 adverse 00:00: Hospita reaction 00 l s to drug Codeine Propensi Active Other (See [facility] ty to Comments) 9-16 st adverse 00:00: Hospita reaction 00 l s to drug Family History Family Member Diagnosis Comments Start Date Stop Date Source Natural father [facility] Natural mother Cancer [facility] Natural mother Hypertension [facility] Social History Social Habit Start Date Stop Date Quantity Comments Source Gender identity [facility] Sexual orientation [facility] History of Social 2022-09-06 2022-09-[address] function 00:00:00 00:00:00 Hospital Alcohol intake 2022-09-05 2022-09-05 Lifetime Sikhism 00:00:00 00:00:00 non-drinker Hospital (finding) Tobacco use and 2022-09-04 2022-09-04 Smokeless Sikhism exposure 00:00:00 00:00:00 tobacco non-user Hospital Sex Ass[birth year] At [birth year] [facility]ism 00:00:00 00:00:00 Hospital Smoking Status Start Date Stop Date Source Never smoked tobacco [facility] Medications Ordered Filled Start Stop Current [...] by (5,000 mouth unit) daily. tablet cycloSPORIN 2023-0 Yes 1[drp] Q.5D Administer Methodi E 1-[address] (RESTASIS) 16:01: both eyes Ho spita 0.05 % 02 2 (two) l ophthalmic times a emulsion day. magnesium 2023-0 Yes 400mg Q.5D Take 1 Metho di oxide 1-[address] (MAG-OX) 16:01: (400 mg Hospit a 400 mg 02 total) by l (241.3 mg mouth 2 magnesium) (two) tablet times a day. insulin 2023-0 Yes 40U QD Inject 40 Metho di [...] by (5,000 mouth unit) daily. tablet cycloSPORIN 2023-0 Yes 1[drp] Q.5D Administer [facility] E 1-[address] (RESTASIS) 16:01: both eyes Ho spita 0.05 % 02 2 (two) l ophthalmic times a emulsion day. magnesium 2023-0 Yes 400mg Q.5D Take 1 Metho di oxide 1-[address] (MAG-OX) 16:01: (400 mg Hospit a 400 mg 02 total) by l (241.3 mg mouth 2 magnesium) (two) tablet times a day. insulin 2023-0 Yes 40U QD Inject 40 Metho di [...] by (5,000 mouth unit) daily. tablet cycloSPORIN 2023-0 Yes 1[drp] Q.5D Administer [facility] E 1-[address] (RESTASIS) 16:01: both eyes Ho spita 0.05 % 02 2 (two) l ophthalmic times a emulsion day. magnesium 2023-0 Yes 400mg Q.5D Take 1 Metho di oxide 1-[address] (MAG-OX) 16:01: (400 mg Hospit a 400 mg 02 total) by l (241.3 mg mouth 2 magnesium) (two) tablet times a day. insulin 2023-0 Yes 40U QD Inject 40 Metho di [...] by (5,000 mouth unit) daily. tablet indomethaci No 50mg Q.5D Take 1 Met hodi n (INDOCIN) 09-[address] 50 MG 16:01: 00:00 (50 mg Hospita capsule 02 :00 total) by l mouth 2 (two) times a day with meals. traMADoL 2022- [place] [id number] 50mg Q6H Take 1 Metho di (ULTRAM) [...] route on [place] [id number] 1{tbl} Q6H Take 1 Methodi -acetaminop 09-07 [...] a day with meals. traMADoL 2022-2022- [place] [id number] 50mg Q6H Take 1 Metho di (ULTRAM) [...] on nasal daily. spray HYDROcodone 2022- No [id number] 1{tbl} Q6H Take 1 Methodi -acetaminop 09-07 [...] Q.5D Take 1 Met hodi n (INDOCIN) 09-[address] 50 MG 16:01: 00:00 (50 mg Hospita capsule 02 :00 total) by l mouth 2 (two) times a day with meals. traMADoL 2022-20[place]- [place] [id number] 50mg Q6H Take 1 Metho di (ULTRAM) 50 09-0715 tablet (50 s t mg tablet 16:01: 00:00 mg total) Ho spita 02 :00 by mouth l every 6 (six) hours as needed for moderate pain .acute pain. FLAXSEED 2022-2022- No 1200mg QD Take 1,200 Methodi ORAL 16 -[address] 16:01: 00:00 mouth Hospita 02 :00 daily. l fluticasone 2022-0 2022- No 50ug QD 1 spray [facility] propionate 09-0715 ([address] (FLONASE) 16:01: 00:00 total) by Ho spita 50 02 :00 Each Nare l mcg/actuati route on nasal daily. spray [place]DROcod[place] 2022- [place] [id number] 1{tbl} Q6H Take 1 Methodi -acetaminop 09-0715 [...] Q.5D Take 1 Met hodi n (INDOCIN) 09-[address] 50 MG 16:01: 00:00 (50 mg Hospita capsule 02 :00 total) by l mouth 2 (two) times a day with meals. [place]MADoL 2022- [place] [id number] 50mg Q6H Take 1 Metho di (ULTRAM) [...] on nasal daily. spray HYDROcodone 2022- No [id number] 1{tbl} Q6H Take 1 Methodi -acetaminop 16 [...] 00:00 Hospita ORAL) 02 :00 l flaxseed 2023-0 2023- No Methodi oiL oil 09-07 st 16:01: 00:00 Hospita 02 :00 l FLUTICASONE 2023-0 2023- No into each Methodi PROPIONATE 09-[address] NASL 16:01: 00:00 Hospita 02 :00 l tiZANidine 2023-0 2023- No 4mg Q8H Take 1 Meth jenniffer (ZANAFLEX) 09-07 tablet (4 st 4 MG tablet 16:01: 00:00 mg total) Hospita 02 :00 by mouth l every 8 (eight) hours as needed for muscle spasms. vitamin B 2022-0 2023- No Take by Meth jenniffer complex (B 09-[address] COMPLEX 1 16:01: 00:00 Hospita ORAL) 02 :00 l flaxseed 2023-0 2023- No Methodi oiL oil 09-07 st 16:01: 00:00 Hospita 02 :00 l FLUTICASONE 2023-0 2023- No into each Methodi PROPIONATE 09-[address] NASL 16:01: 00:00 Hospita 02 :00 l tiZANidine 2023-0 2023- No 4mg Q8H Take 1 Meth jenniffer (ZANAFLEX) 09-07 tablet (4 st 4 MG tablet 16:01: 00:00 mg total) Hospita 02 :00 by mouth l every 8 (eight) hours as needed for muscle spasms. vitamin B 2022-0 2023- No Take by Meth jenniffer complex (B 09-[address] COMPLEX 1 16:01: 00:00 Hospita ORAL) 02 :00 l flaxseed 2023-0 2023- No Methodi oiL oil 09-07 st 16:01: [...] as needed for muscle spasms. vitamin B 2022-2022- No Take by Meth jenniffer complex (B 09-[address] COMPLEX 1 16:01: 00:00 Hospita ORAL) 02 :00 l flaxseed 2022-2022- No Methodi oiL oil 09-07 st 16:01: 00:00 Hospita 02 :00 l FLUTICASONE 2022-2022- No into each Methodi PROPIONATE 09-[address] NASL 16:01: 00:00 Hospita 02 :00 l tiZANidine 2022-0 2022- No 4mg Q8H Take 1 Meth [...] l U-100 SUBQ) nightly. traMADoL 0 Yes [id number] 50mg Q6H Take 1 Method i (ULTRAM) [...] 08:52: mouth Hospita 15 daily. l fluticasone 2022-0 Yes 50ug QD 1 spray Met hodi propionate 1-15 ([address] (FLONASE) 08:52: total) by Hos brenda 50 15 Each Nare l mcg/actuati route on nasal daily. spray HYDROcodone 2022-0 Yes [id number] 1{tbl} Q6H Take 1 M ethodi -acetaminop [...] l 500 MG mouth tablet daily. cholecalcif 2022-0 Yes 5000U QD Take 1 Met hodi emile, 1-[address] vitamin D3, 08:52: (5,000 Hosp yoan (Vitamin 15 Units l D3) 125 mcg total) by (5,000 mouth unit) daily. tablet indomethaci 2022-0 Yes 50mg Q.5D Take 1 Meth jenniffer n (INDOCIN) 1-[address] 50 MG 08:52: (50 mg Hospita capsule 15 total) by l mouth 2 (two) times a day with meals. cycloSPORIN 2022-0 Yes 1[drp] Q.5D Administer Methodi E 1-[address] (RESTASIS) 08:52: both eyes Ho spita 0.05 % 15 2 (two) l ophthalmic times a emulsion day. carvediloL 2022-0 2022- No 12.5mg Q.5D Take 1 Me [...] for spray 30 days. famotidine 2022-0 2022- No 20mg Q.5D Take 1 Meth jenniffer (Pepcid) 20 1-15 02-15 tablet (20 s t MG tablet 00:00: 05:59 mg total) Ho spita 00 :00 by mouth 2 l (two) times a day for 30 days. carvediloL 2022-0 2022- No 12.5mg Q.5D Take 1 Me [facility] (COREG) 1-15 02-[address] 12.5 MG 00:00: 05:59 (12.5 mg Hospi ta tablet 00 :00 total) by l mouth 2 (two) times a day for 30 days. fluticasone 2022-0 2023- No 50ug QD 1 spray [facility] propionate 1-15 02-15 ([address] (FLONASE) 00:00: 05:59 total) by Ho spita 50 00 :00 Each Nare l mcg/actuati route on nasal daily for spray 30 days. famotidine 2022-0 2022- No 20mg Q.5D Take 1 Meth jenniffer (Pepcid) 20 1-15 02-15 tablet (20 s t MG tablet 00:00: 05:59 mg total) Ho spita 00 :00 by mouth 2 l (two) times a day for 30 days. carvediloL 2022-0 2022- No 12.5mg Q.5D Take 1 [facility] (COREG) 1-15 02-[address] 12.5 MG 00:00: 05:59 (12.5 mg Hospi ta tablet 00 :00 total) by l mouth 2 (two) times a day for 30 days. fluticasone 2022-0 202- No 50ug QD 1 spray Me [facility] propionate 1-15 02-15 ([address] (FLONASE) 00:00: 05:59 total) by Ho spita 50 00 :00 Each Nare l mcg/actuati route on nasal daily for spray 30 days. famotidine 2022-0 2022- No 20mg Q.5D Take 1 Meth jenniffer (Pepcid) 20 1-15 02-15 tablet (20 s t MG tablet 00:00: 05:59 mg total) Ho spita 00 :00 by mouth 2 l (two) times a day for 30 days. carvediloL 2022-0 3- No 12.5mg Q.5D Take 1 Me [facility] (COREG) 1-15 02-[address] 12.5 MG 00:00: 05:59 (12.5 mg Hospi ta tablet 00 :00 total) by l mouth 2 (two) times a day for 30 days. fluticasone 3-0 2023- No 50ug QD 1 spray Me [facility] propionate 1-15 02-15 ([address] (FLONASE) 00:00: 05:59 total) by Ho spita 50 00 :00 Each Nare l mcg/actuati route on nasal daily for spray 30 days. famotidine 2022-0 2022- No 20mg Q.5D Take 1 Meth jenniffer (Pepcid) 20 09-06-15 tablet (20 s t MG tablet 00:00: 05:59 mg total) Ho spita 00 :00 by mouth 2 l (two) times a day for 30 days. carvediloL 2022-0 2022- No 12.5mg Q.5D Take 1 Me [facility] (COREG) 09-[address] 12.5 MG 00:00: 05:59 (12.5 mg Hospi ta tablet 00 :00 total) by l mouth 2 (two) times a day for 30 days. fluticasone 2022-2022- No 50ug QD 1 spray Me [facility] propionate 09-06 ([address] (FLONASE) 00:00: 05:59 total) by Ho spita 50 00 :00 Each Nare l mcg/actuati route on nasal daily for spray 30 days. famotidine 2022-0 2022- No 20mg Q.5D Take 1 Meth jenniffer (Pepcid) 20 09-06-15 tablet (20 s t MG tablet 00:00: 05:59 mg total) Ho spita 00 :00 by mouth 2 l (two) times a day for 30 days. methylPREDN 2022-0 2022- No follow Met hodi ISolone 09-[address] (Medrol, 00:00: 05:59 directions Ho spita Wenceslao,) 4 mg 00 :00 l tablet methylPREDN 2022-0 2022- No follow Met hodi ISolone 09-[address] (Medrol, 00:00: 05:59 directions Ho spita Wenceslao,) 4 mg 00 :00 l tablet methylPREDN 3-0 2022- No follow Met hodi ISolone 09-[address] (Medrol, 00:00: 05:59 directions Ho spita Wenceslao,) 4 mg 00 :00 l tablet methylPREDN 3-0 2022- No follow Met hodi ISolone 09-[address] (Medrol, 00:00: 05:59 directions Ho spita Wenceslao,) 4 mg 00 :00 l tablet methylPREDN 2022-0 2022- No follow Met hodi ISolone 09-[address] (Medrol, 00:00: 05:59 directions Matty Billy,) 4 mg 00 :00 l tablet vitamin B 2022- No Take by Meth jenniffer complex (B 09-[address] COMPLEX 1 03:10: 00:00 Hospita ORAL) 02 :00 l tiZANidine 2022-2022- No 4mg Q8H Take 1 Meth jenniffer (ZANAFLEX) 09-05 tablet (4 st 4 MG tablet 03:09: 00:00 mg total) Hospita 32 :00 by mouth l every 8 (eight) hours as needed for muscle spasms. FLUTICASONE 2022- No into each Methodi PROPIONATE 09-[address] NASL 02:54: 00:00 Hospita 30 :00 l flaxseed 0 2022- No Methodi oiL oil 09-05 st 02:53: 00:00 Hospita 52 :00 l HYDROcodone 0 2022- No 1{tbl} Q6H Take 1 M ethodi -acetaminop 09-05 tablet by hen (XODOL) 01:40: 00:00 mouth Hosp yoan 7.5-300 mg 55 :00 Every 6 l per tablet hours while awake as needed (RT). Max Daily Amount: 4 tablets methylPREDN 2022-0 Yes 4mg Take 1 Meth jenniffer ISolone 09-04 tablet (4 st (MEDROL 00:00: mg total) Hospi ta DOSEPAK) 4 00 by mouth. l mg tablet Follow schedule on package instructio ns. methylPREDN 3-0 2022- No 4mg Take 1 Met hodi ISolone 09-04 tablet (4 st (MEDROL 00:00: 00:00 mg total) Hosp yoan DOSEPAK) 4 00 :00 by mouth. l mg tablet Follow schedule on package instructio ns. methylPREDN 2022-0 3- No 4mg Take 1 Met hodi ISolone 09-04 tablet (4 st (MEDROL 00:00: 00:00 mg total) Hosp yoan DOSEPAK) 4 00 :00 by mouth. l mg tablet Follow schedule on package instructio ns. methylPREDN 2022- No 4mg Take 1 Met hodi ISolone 09-04-15 tablet (4 st (MEDROL 00:00: 00:00 mg total) Hosp yoan DOSEPAK) 4 00 :00 by mouth. l mg tablet Follow schedule on package instructio ns. methylPREDN 2022- No 4mg Take 1 Met hodi ISolone 09-0415 tablet (4 st (MEDROL 00:00: 00:00 mg [...] 300mg QD Take 1 Met hodi (ZYLOPRIM) -[address] 300 MG 00:00: (300 mg Hospita tablet 00 total) by l mouth daily. ibandronate 2021-08- No 150mg Q30D Take 1 [facility] (BONIVA) -30 12- tablet st 150 mg 00:00: 05:59 (150 [...] total) by l mouth daily. allopurinoL 2021-08 No 300mg QD Take 1 Me [facility] (ZYLOPRIM) 09-[address] 300 MG 00:00: 00:00 (300 mg Hospita tablet 00 :00 total) by l mouth daily. allopurinoL 2021-08 No 300mg QD Take 1 Me [facility] (ZYLOPRIM) 09-[address] 300 MG 00:00: 00:00 (300 mg Hospita tablet 00 :00 total) by l mouth daily. predniSONE 2021-08 No TAKE 4 Meth jenniffer (DELTASONE) 09-21 [...] Q.5D Take 1 Me [facility] (COREG) 1-[address] 12.5 MG 00:00: 00:00 (12.5 mg Hospi ta tablet 00 :00 total) by l mouth 2 (two) times a day with meals. carvediloL 2021-08 No 12.5mg Q.5D Take 1 Me [facility] (COREG) -[address] 12.5 MG 00:00: 00:00 (12.5 mg Hospi ta tablet 00 :00 total) by l mouth 2 (two) times a day with meals. carvediloL 2021-08 No 12.5mg Q.5D Take 1 Me [facility] (COREG) -[address] 12.5 MG 00:00: 00:00 (12.5 mg Hospi ta tablet 00 :00 total) by l mouth 2 (two) times a day with meals. carvediloL 2021-08- No 12.5mg Q.5D Take 1 Me [facility] (COREG) -[address] 12.5 MG 00:00: 00:00 [...] 00 by mouth l tablet daily. NIFEdipine 2022- No 30mg QD Take 1 Meth jenniffer ER 8-24 08-25 tablet (30 st (PROCARDIA- 00:00: 04:59 mg total) Hospita XL) 30 MG 00 :00 by mouth l 24 hr daily. tablet NIFEdipine 2021-2022- No 30mg QD Take 1 Meth jenniffer ER 8-24 08-25 tablet (30 st (PROCARDIA- 00:00: 04:59 mg total) Hospita XL) 30 MG 00 :00 by mouth l 24 hr daily. tablet NIFEdipine 2021-2022- No 30mg QD Take 1 Meth jenniffer [...] 30mg QD Take 1 Meth jenniffer ER 04-1525 tablet (30 st (PROCARDIA- 00:00: 04:59 mg [...] brenda 00 by mouth l daily. furosemide 2-0 Yes 40mg QD Take 1 Metho di (LASIX) 40 5-09 tablet (40 st mg tablet 00:00: mg total) Hos brenda 00 by mouth l daily. furosemide 2-0 Yes 40mg QD Take 1 Metho di (LASIX) 40 5-09 tablet (40 st mg tablet 00:00: mg total) Hos brenda 00 by mouth l daily. furosemide 2-0 Yes 40mg QD Take 1 Metho di [...] Source Systolic blood 2022-09-06 13:56:42 118 mm[Hg] [facility] pressure Diastolic blood 2022-09-06 13:56:42 60 mm[Hg] [facility] pressure Heart rate 2022-09-06 13:56:42 61 /min [facility] Body temperature 2022-09-06 13:56:42 36.39 Radha [facility] Respiratory rate 2022-09-06 13:56:42 16 /min [facility] Oxygen saturation in 2022-09-06 13:56:42 100 /min [facility] Arterial blood by Pulse oximetry Body weight 2022-09-06 11:00:00 74.027 kg [facility] BMI 2022-09-06 11:00:00 28.01 kg/m2 [facility] Body height 2022-09-05 08:45:00 162.6 cm [facility] Procedures Procedure Date / Time Performing Clinician Source Performed COMPREHENSIVE METABOLIC 2022-09-06 12:10:00 Kvng Cleary [facility] PANEL ESTIMATED GFR 2022-09-06 12:10:00 Kvng Cleary spital MAGNESIUM LEVEL 2022-09-06 12:10:00 Kvng Cleary spital PHOSPHORUS LEVEL 2022-09-06 12:10:00 Kvng Cleary ospital CBC WITH PLATELET AND 2022-09-06 10:27:00 Star Lion [facility] DIFFERENTIAL PROTHROMBIN TIME WITH INR 2022-09-06 10:27:00 Star Lion [facility] CBC WITH PLATELET AND 2022-09-06 10:27:00 Star Lion [facility] DIFFERENTIAL ESTIMATED GFR 2022-09-06 10:19:00 Star Lion spital POC GLUCOSE 2022-09-06 01:56:00 Kvng Cleary Ho spital POC GLUCOSE 2022-09-05 23:38:00 Kvng Cleary spital TROPONIN T 2022-09-05 18:06:00 Star [facility] spital POC GLUCOSE 2022-09-05 17:25:00 Kvng Cleary spital US HEPATIC 2022-09-05 14:42:23 [facility] spital POC GLUCOSE 2022-09-05 13:42:00 Kvng Cleary spital URIC ACID LEVEL 2022-09-05 12:34:00 Star [facility] spital PHOSPHORUS LEVEL 2022-09-05 12:34:00 Star [facility] H ospital TROPONIN T 2022-09-05 12:34:00 Star Lion spital COMPREHENSIVE METABOLIC 2022-09-05 12:34:00 Star Lion [facility] PANEL ESTIMATED GFR 2022-09-05 12:34:00 Star Lion spital MAGNESIUM LEVEL 2022-09-05 12:34:00 Star [facility] spital ESTIMATED GFR 2022-09-05 12:30:00 Star [facility] spital POC GLUCOSE 2022-09-05 09:16:00 [facility] spital ACUTE VIRAL HEPATITIS 2022-09-05 09:11:00 Star [facility] PANEL (HAV, HBV, HCV) AMMONIA LEVEL 2022-09-05 09:04:00 Star Lion spital CBC WITH PLATELET AND 2022-09-05 09:02:00 Star Lion [facility] DIFFERENTIAL PROTHROMBIN TIME WITH INR 2022-09-05 09:02:00 Star Lion [facility] MANUAL DIFFERENTIAL 2022-09-05 09:02:00 [facility] ESTIMATED GFR 2022-09-05 08:45:00 Star [facility] spital URINE CULTURE 2022-09-05 03:36:00 Kimberly Donohue [facility] URINALYSIS 2022-09-05 03:36:00 [facility]OL[facility] 2022-09-05 02:52:00 Kimberly tomlin [facility] PANEL CREATINE KINASE, TOTAL 2022-09-05 02:52:00 sada [facility] ([facility] TROPONIN, I-STAT 2022-09-05 02:52:00 Star [facility] ospital B NATRIURETIC PEP, I-STAT 2022-09-05 02:52:00 Kimberly Donohue [facility] CBC WITH PLATELET AND 2022-09-05 02:52:[address] [facility] DIFFERENTIAL AMYLASE LEVEL 2022-09-05 02:52:00 [facility] ESTIMATED GFR 2022-09-05 02:52:00 sada [facility] MANUAL DIFFERENTIAL 2022-09-05 02:52:00 Kimberly Donohue [facility] COVID-19, INFLUENZA A&B, 2022-09-05 02:50:00 Kimberly Donohue [facility] AND RSV QUALITATIVE RT-PCR XR CHEST 1 VW PORTABLE 2022-09-05 02:47:[address] [facility] ECG ED PRELIMINARY 2022-09-05 02:30:[address] [facility] INTERPRETATION ECG 12-LEAD 2022-09-04 02:32:07 [facility] Plan of Care Planned Activity Planned Date Details Comments Source Future Scheduled 2022-12-17 SHINGLES VACCINES ([address] [facility] Test 13:19:12 of 2) [code = SHINGLES VACCINES (1 of 2)] Future Scheduled 2022-12-17 HEPATITIS B VACCINES Met [facility] Test 13:19:12 (1 of 3 - Risk 3-dose series) [code = HEPATITIS B VACCINES (1 of 3 - Risk 3-dose series)] Future Scheduled 2022-12-17 65+ PNEUMOCOCCAL [facility] Test 13:19:12 VACCINE (2 - PPSV23 if available, else PCV20) [code = 65+ PNEUMOCOCCAL VACCINE (2 - PPSV23 if available, else PCV20)] Future Scheduled 2022-12-17 COVID-19 VACCINE (4 - Me [facility] Hospital Test 13:19:12 Booster for Moderna series) [code = COVID-19 VACCINE (4 - Booster for Moderna series)] Future Scheduled 2022-12-17 INFLUENZA VACCINE Method [facility] Hospital Test 13:19:12 [code = INFLUENZA VACCINE] Future Scheduled 2022-12-01 SHINGLES VACCINES ([address] [facility] Test 12:04:45 of 2) [code = SHINGLES VACCINES (1 of 2)] Future Scheduled 2022-12-01 HEPATITIS B VACCINES Met [facility] Test 12:04:45 (1 of 3 - Risk 3-dose series) [code = HEPATITIS B VACCINES (1 of 3 - Risk 3-dose series)] Future Scheduled 2022-12-01 65+ [facility]:04[facility] VACCINE (2 - PPSV23 if available, else PCV20) [code = 65+ PNEUMOCOCCAL VACCINE (2 - PPSV23 if available, else PCV20)] Future Scheduled 2022-12-01 COVID-19 VACCINE (4 - [facility] Hospital Test 12:04:45 Booster for Moderna series) [code = COVID-19 VACCINE (4 - Booster for Moderna series)] Future Scheduled 2022-12-01 INFLUENZA VACCINE Method [facility] Hospital Test 12:04:45 [code = INFLUENZA VACCINE] Future Scheduled 2022-10-02 SHINGLES VACCINES (1 Met [facility] Test 00:06:34 of 2) [code = SHINGLES VACCINES (1 of 2)] Future Scheduled 2022-10-02 HEPATITIS B VACCINES Met [facility] Test 00:06:34 (1 of 3 - Risk 3-dose series) [code = HEPATITIS B VACCINES (1 of 3 - Risk 3-dose series)] Future Scheduled 2022-10-02 65+ PNEUMOCOCCAL [facility] Test 00:06:34 VACCINE (2 - PPSV23 if available, else PCV20) [code = 65+ PNEUMOCOCCAL VACCINE (2 - PPSV23 if available, else PCV20)] Future Scheduled 2022-10-02 COVID-19 VACCINE ([facility] - [facility] 00:06:34 Booster for Moderna series) [code = COVID-19 VACCINE (4 - Booster for Moderna series)] Future Scheduled 2022-10-02 INFLUENZA VACCINE Method is Hospital Test 00:06:34 [code = INFLUENZA VACCINE] Future Scheduled 2022-09-07 SHINGLES VACCINES (1 Met [facility] Test 02:23:11 of 2) [code = SHINGLES VACCINES (1 of 2)] Future Scheduled 2022-09-07 HEPATITIS B VACCINES Met [facility] Test 02:23:11 (1 of 3 - Risk 3-dose series) [code = HEPATITIS B VACCINES (1 of 3 - Risk 3-dose series)] Future Scheduled 2022-09-07 65+ PNEUMOCOCCAL [facility] Test 02:23:11 VACCINE (2 - PPSV23 if available, else PCV20) [code = 65+ PNEUMOCOCCAL VACCINE (2 - PPSV23 if available, else PCV20)] Future Scheduled 2022-09-07 [facility]:23:11 Booster for Moderna series) [code = COVID-19 VACCINE (4 - Booster for Moderna series)] Future Scheduled 2022-09-07 INFLUENZA VACCINE Method is Hospital Test 02:23:11 [code = INFLUENZA VACCINE] Future Scheduled 2022-09-06 SHINGLES VACCINES (1 Met [facility] Test 00:43:45 of 2) [code = SHINGLES VACCINES (1 of 2)] Future Scheduled 2022-09-06 65+ PNEUMOCOCCAL [facility] Test 00:43:45 VACCINE (2 - PPSV23 if available, else PCV20) [code = 65+ PNEUMOCOCCAL VACCINE (2 - PPSV23 if available, else PCV20)] Future Scheduled 2022-09-06 COVID-19 VACCINE (4 - [facility] Hospital Test 00:43:45 Booster for Moderna series) [code = COVID-19 VACCINE (4 - Booster for Moderna series)] Future Scheduled 2022-09-06 INFLUENZA VACCINE Method [facility] Hospital Test 00:43:45 [code = INFLUENZA VACCINE] Encounters Start End Encounter Admission Attending Care Care Encounter Source Date/Time Date/Time Type Type Clinicians Facility Department ID 2022 2022 [facility] [id number] [place] 11:23:00 11:23:00 Juanito -[id number] [facility] 2022-09-04 2022-09-06 Emergency Kimberly Donohue 1.2.840.1 [id number] [facility] 20:08:00 16:01:00 Darrius Ashford [id number] [address] [facility] [place] 3.430.2.7 [facility] [place] .[id number] l .8 2022-09-04 2022-09-06 Emergency CharanjitKimberly 1.2.840.1 [id number] Methodi 20:08:00 16:01:00 Darrius Ashford [id number] [facility] [place] 3.430.2.7 [facility] [place] .[id number] l .8 2022-09-06 2022-09-06 Travel 1.2.840.1 [id number] Methodi 00:00:00 00:00:[address] 3.430.2.7 0.2.7.3.698 [facility] .[id number] 084.8 l .8 2022-09-06 2022-09-06 Travel 1.2.840.1 1.2.233.542 [id number] Methodi 00:00:00 00:00:[address] 3.430.2.7 0.2.7.3.698 Ho spita .3.017228 084.8 l .8 2022-09-04 2022-09-04 Travel 1.2.840.1 1.2.655.886 [id number] Methodi 00:00:00 00:00:[address] 3.430.2.7 0.2.7.3.698 Ho spita .3.349022 084.8 l .8 2022-09-04 2022-09-04 Travel 1.2.840.1 1.2.821.138 2004 [id number] Methodi 00:00:00 00:00:[address] 3.430.2.7 0.2.7.3.698 Ho spita .3.280641 084.8 l .8 Results Test Description Test Time Test Comments Results Result Comments Source POC glucose 2022-09-06 01:57:00 Test Item Value Reference Range Interpretation Comme nts POC glucose (test code = 190 mg/dL 65-99 H Ope rator Name: Lupe Yun [id number]) (Pe[place])-PCADevi ce ID: [id number] able: RN Notified Lab Interpretation (test code = Abnormal 16621-3) [facility] [id number] 01:57:00 Test Item Value Reference Range Interpretation Comments POC glucose (test code = 190 mg/dL 65-99 H Ope rator Name: [id number]) Onrolly Yun ([place])-PCADevi ce ID: [id number] able: RN Notified Lab Interpretation (test Abnormal code = 69388-7) [facility] [id number] 01:57:00 Test Item Value Reference Range Interpretation Comments POC glucose (test code = 190 mg/dL 65-99 H Ope rator Name: [id number]) Onrolly Yun ([place])-PCADevi ce ID: [id number] able: RN Notified Lab Interpretation (test Abnormal code = 68748-8) [facility] [id number] 01:57:00 Test Item Value Reference Range Interpretation Comments POC glucose (test code = 190 mg/dL 65-99 H Ope rator Name: [id number]) Onnallely Yun ([place])-PCADevi ce ID: [id number] able: RN Notified Lab Interpretation (test Abnormal code = 47323-1) [facility] [id number] 01:57:00 Test Item Value Reference Range Interpretation Comments POC glucose (test code = 190 mg/dL 65-99 H Ope rator Name: [id number]) Lupe Yun ([place])-PCADevi ce ID: [id number] able: RN Notified Lab Interpretation (test Abnormal code = 16446-1) [address]2023-01-14 13:14:37 Test Item Value Reference Range Interpretation Comments Ventricular rate 83 (test code = 253) Atrial rate (test 83 code = 255) KS interval (test 178 code = 266) QRSD [...] 273) voltage QRS-Borderline ECG-No previous ECGs available- [address]2023-01-14 13:14:37 Test Item Value Reference Range Interpretation Comments Ventricular rate (test code = 253) Atrial rate (test code = 255) KS interval (test code = 266) QRSD interval (test code = 260) QT interval (test code = 264) QTC interval (test code = 265) P axis 1 (test code = 267) QRS axis 1 (test code = 268) T wave axis (test code = 270) EKG impression (test Normal sinus rhythm-Low code = 273) voltage QRS-Borderline ECG-No previous ECGs available- [address]2023-01-14 13:14:37 Test Item Value Reference Range Interpretation Comments Ventricular rate (test code = 253) Atrial rate (test code = 255) KS interval (test code = 266) QRSD interval (test code = 260) QT interval (test code = 264) QTC interval (test code = 265) P axis 1 (test code = 267) QRS axis 1 (test code = 268) T wave axis (test code = 270) EKG impression (test Normal sinus rhythm-Low code = 273) voltage QRS-Borderline ECG-No previous ECGs available- [address]2023-01-14 13:14:37 Test Item Value Reference Range Interpretation Comments Ventricular rate 83 (test code = 253) Atrial rate (test 83 code = 255) KS interval (test 178 code = 266) QRSD [...] 273) voltage QRS-Borderline ECG-No previous ECGs available- [address]2023-01-14 13:14:37 Test Item Value Reference Range Interpretation Comments Ventricular rate 83 (test code = 253) Atrial rate (test 83 code = 255) KS interval (test 178 code = 266) QRSD [...] 273) voltage QRS-Borderline ECG-No previous ECGs available- [facility] ED Preliminary Interpretation - Not an [id number] 02:30:54 Test Item Value Reference Range Interpretation Comments TERRANCE (test code = TERRANCE) Kimberly Donohue MD 09/05/2022 1:50 [facility] ED Preliminary Interpretation - Not an OrderPerformed by: Kimberly Donohue MDAuthorized by: Kimberly Donohue MD ECG reviewed by ED Physician in the absence of a cell support operator: yes Interpretation: Interpretation: abnormal Rate: ECG rate: 83 ECG rate assessment: normal Rhythm: Rhythm: sinus rhythm Ectopy: Ectopy: none QRS: QRS axis: Left QRS intervals: NormalConduction: Conduction: normal ST segments: ST segments: NormalT waves: T waves: normal Comments: KS 178. QRS 86. QTc 399. Lab Interpretation Abnormal (test code = 16964-6) [facility] ED Preliminary Interpretation - Not an [id number] 02:30:54 Test Item Value Reference Range Interpretation Comments TERRANCE (test code = TERRANCE) Kimberly Donohue MD 09/05/2022 1:50 [facility] Preliminary Interpretation - Not an OrderPerformed by: Kimberly Donohue MDAuthorized by: Kimberly Donohue MD ECG reviewed by ED Physician in the absence of a cell support operator: yes Interpretation: Interpretation: abnormal Rate: ECG rate: 83 ECG rate assessment: normal Rhythm: Rhythm: sinus rhythm Ectopy: Ectopy: none QRS: QRS axis: Left QRS intervals: NormalConduction: Conduction: normal ST segments: ST segments: NormalT waves: T waves: normal Comments: KS 178. QRS 86. QTc 399. Lab Interpretation Abnormal (test code = 05518-3) [facility] Preliminary Interpretation - Not an [id number] 02:30:54 Test Item Value Reference Range Interpretation Comments TERRANCE (test code = TERRANCE) Kimberly Donohue MD 09/05/2022 1:50 [facility] Preliminary Interpretation - Not an OrderPerformed by: Kimberly Donohue MDAuthorized by: Kimberly Donohue MD ECG reviewed by ED Physician in the absence of a cell support operator: yes Interpretation: Interpretation: abnormal Rate: ECG rate: 83 ECG rate assessment: normal Rhythm: Rhythm: sinus rhythm Ectopy: Ectopy: none QRS: QRS axis: Left QRS intervals: NormalConduction: Conduction: normal ST segments: ST segments: NormalT waves: T waves: normal Comments: KS 178. QRS 86. QTc 399. Lab Interpretation Abnormal (test code = 73075-9) [facility] ED Preliminary Interpretation - Not an [id number] 02:30:54 Test Item Value Reference Range Interpretation Comments TERRANCE (test code = TERRANCE) Kimberly Donohue MD 09/05/2022 1:50 [facility] Preliminary Interpretation - Not an OrderPerformed by: Kimberly Donohue MDAuthorized by: Kimberly Donohue MD ECG reviewed by ED Physician in the absence of a cell support operator: yes Interpretation: Interpretation: abnormal Rate: ECG rate: 83 ECG rate assessment: normal Rhythm: Rhythm: sinus rhythm Ectopy: Ectopy: none QRS: QRS axis: Left QRS intervals: NormalConduction: Conduction: normal ST segments: ST segments: NormalT waves: T waves: normal Comments: KS 178. QRS 86. QTc 399. Lab Interpretation Abnormal (test code = 47834-8) [facility] Preliminary Interpretation - Not an [id number] 02:30:54 Test Item Value Reference Range Interpretation Comments TERRANCE (test code = TERRANCE) Kimberly Donohue MD 09/05/2022 1:50 [facility] Preliminary Interpretation - Not an OrderPerformed by: Kimberly Donohue MDAuthorized by: Kimberly Donohue MD ECG reviewed by ED Physician in the absence of a cell support operator: yes Interpretation: Interpretation: abnormal Rate: ECG rate: 83 ECG rate assessment: normal Rhythm: Rhythm: sinus rhythm Ectopy: Ectopy: none QRS: QRS axis: Left QRS intervals: NormalConduction: Conduction: normal ST segments: ST segments: NormalT waves: T waves: normal Comments: KS 178. QRS 86. QTc 399. Lab Interpretation Abnormal (test code = 74215-6) [facility] [id number] 21:31:31 Test Item Value Reference Range Interpretation Comments SARS-CoV-2 (COVID-19) RNA Not detected [Presence] in Respiratory specimen by EFRAIN with probe detection (test code = 88557-3) Whether patient resides in a No congrega care setting (test code = 01990-4) Date and time of symptom onset Unknown (test code = 57747-9) Whether the patient was No hospitalized for condition of interest (test code = 27509-7) Whether the patient was admitted No to intensive care unit (ICU) for condition of interest (test code = 75974-4) Whether patient is employed in a No healthcare setting (test code = 43672-2) Whether the patient has symptoms No related to condition of interest (test code = 08212-2) status (test code = No 95367-9) [facility]
--- NOTE | 2023-01-18 12:02 | RAD REPORT ---
EXAM DESCRIPTION: CT - Head Brain Wo Cont - 01/18/2023 11:51 am CLINICAL HISTORY: Headache COMPARISON: September 2022 TECHNIQUE: Computed axial tomography of the head was obtained. IV contrast was not requested. All CT scans are performed using dose optimization technique as appropriate and may include automated exposure control or mA/KV adjustment according to patient size. FINDINGS: An intracranial bleed is not seen The ventricles are normal in caliber No extra-axial fluid collection is noted. Empty sella turcica. No significant hypodensity within the brain noted Fluid within the sinuses/ mastoids is not seen. IMPRESSION: No acute intracranial abnormality is seen If patient's symptoms persist MRI of the brain would be recommended
--- NOTE | 2023-01-18 12:03 | RAD REPORT ---
EXAM DESCRIPTION: Amina Single View01/18/2023 11:57 am CLINICAL HISTORY: Chest pain COMPARISON: November 2022 FINDINGS: The lungs appear clear of acute infiltrate. The heart is normal size IMPRESSION: No acute abnormalities displayed
[2023-01-18 12:21] LABS: Absolute Lymphocytes (CBC) 1.7 K/uL (0.7-4.9); Lymphocytes % 37.7 % (15.3-44.8); MPV 8.6 fL (7.6-11.3)
[2023-01-18 14:03] LABS: Potassium 2.9 mEq/L (3.5-5.1); Troponin High Sensitivity 13.4 pg/mL (<58.9)
[2023-01-18] MEDS ORDERED: POTASSIUM CL SA 10 MEQ TAB PO ONE (14:41)
[2023-01-18] MEDS ORDERED: POTASSIUM 25 MEQ EFFERV TAB ONE (14:41)
--- NOTE | 2023-01-18 14:47 | EDPHYS ---
Physician Documentation [facility] Name: Michael Kimball Age: 77 yrs Sex: Female : 1945 Arrival Date: 01/18/2023 Time: 10:48 Bed 7 Private MD: Olman Santiago ED Physician Alon Richards HPI: 01/18 11:40 This 77 yrs old Black Female presents to ER via Wheelchair with complaints of Headache, bs3 Dizziness. 11:40 She notes a mild frontal headache which causes dizzines, no blurry vision, her bs3 dizziness is worse with standing, she has no difficulty ambulating. No cp but she has left arm pain for several days as well. No abdominal pain, nausea, or vomiting. She tried motrin without sig relief. She notes her feet feel tight but her swelling since last admission is much improved. No fever or chills, no falls, per son she is walking normally. . Historical: - Allergies: 11:24 BP meds that end with "prils"; ll1 11:24 Celecoxib; ll1 11:24 Cipro PO; ll1 11:24 Clarithromycin; ll1 11:24 Clindamycin; ll1 11:24 Codeine; ll1 11:24 Hydrocodone-Acetaminophen; ll1 11:24 Indomethacin; ll1 11:24 Naproxen; ll1 11:24 Prevpac; ll1 11:24 Propoxyphene N-Acetaminophen; ll1 11:24 tramadol; ll1 - Home Meds: 11:31 hydralazine 25 mg Oral tablet 2 times per day [Active]; Xarelto 20 mg oral tablet every ph evening [Active]; sotalol 80 mg Oral tablet 2 times per day [Active]; furosemide 40 mg Oral tab 1 tab once daily [Active]; nifedipine 30 mg Oral Tablet, Extended Release 24 hr daily [Active]; Vitamin D3 5,000 unit Oral tab daily [Active]; Vitamin C 1,000 mg Oral tab daily [Active]; magnesium oxide 400 mg Oral cap twice a day [Active]; flaxseed 1200 mg Oral twice a day [Active]; Acidophilus Oral daily [Active]; - PMHx: 11:24 Diabetes - IDDM; High Cholesterol; Hypertension; blood clot; ll1 - Immunization history:: Adult Immunizations unknown. - Social history:: Smoking status: Patient denies any tobacco usage or history of. ROS: 11:42 Constitutional: Negative for fever, chills bs3 11:42 All other systems are negative. Exam: 11:42 Constitutional: This is a well developed, well nourished patient who is awake, alert, bs3 and in no acute distress. Head/Face: Normocephalic, atraumatic. Eyes: Pupils equal round and reactive to light, extra-ocular motions intact. Lids and lashes normal. ENT: mmm, no posterior phyarngeal erythema Neck: Trachea midline, no thyromegaly, no neck stiffness Chest/axilla: Normal chest wall appearance and motion. Nontender with no deformity. No lesions are appreciated. Cardiovascular: Regular rate and rhythm with a normal S1 and S2. symmetric pulses in upper extremities Respiratory: Lungs have equal breath sounds bilaterally, clear to auscultation, no respiratory distress Abdomen/GI: Soft, non-tender, no rebound or guarding Skin: Warm, dry with normal turgor. Normal color with no rashes, no lesions, and no evidence of cellulitis. MS/ Extremity: Pulses equal, no cyanosis. Neurovascular intact. Full, normal range of motion. Neuro: Awake and alert, GCS 15, oriented to person, place, time, and situation. Cranial nerves II-XII steady gait no nystagmus normal [id number] 11:42 A-fib [address] elevation or depression QTc 357 as interpreted by myself Vital Signs: 11:17 BP 163 / 93; Pulse 62; Resp 18; Temp 97.5(TE); Pulse Ox 100% on R/A; Weight 67.13 kg; ph Height 5 ft. 4 in. ; Pain 3/10; 12:32 BP 154 / 64; Pulse 63; Resp 18; Pulse Ox 100% on R/A; ph 15:04 BP 160 / 87; Pulse 64; Resp 18; Temp 98; Pulse Ox 99% on R/A; ph 11:17 Body Mass Index 25.40 (67.13 kg, 162.56 cm) ph 11:17 Pain Scale: Adult ph MDM: 11:13 Patient medically screened. bs3 11:42 Data reviewed: vital signs, nurses notes. ED course: Patient with frontal headache and bs3 dizziness will evaluate for electrolyte abnormality will rule out large mass she has no nystagmus and has a steady gait her history and physical are not consistent with posterior circulation stroke she is already on a blood thinner I doubt she has cerebral venous sinus thrombosis her symptoms are not unilateral and she has no visual complaints I doubt she has temporal arteritis we will reassess. 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 01/18 11:29 Order name: Basic Metabolic Panel; Complete Time: 14:05 3 01/18 11:29 Order name: CBC with Diff; Complete Time: 12:43 3 01/18 11:29 Order name: Troponin HS; Complete Time: 14:05 3 01/18 11:29 Order name: XRAY Chest (1 view); Complete Time: 12:15 3 01/18 11:29 Order name: CT Head Brain wo Cont; Complete Time: 12:15 3 01/18 11:29 Order name: EKG; Complete Time: 11:41 3 01/18 11:29 Order name: Cardiac monitoring; Complete Time: 11:47 bs3 01/18 11:29 Order name: EKG - Nurse/Tech; Complete Time: 11:47 3 01/18 11:29 Order name: Labs collected and sent; Complete Time: 12:15 3 01/18 11:29 Order name: O2 Per Protocol; Complete Time: 11:43 3 01/18 11:29 Order name: O2 Sat Monitoring; Complete Time: 11:43 3 01/18 12:24 Order name: Labs - recollect needed: recollect green and blue top; Complete Time: 13:46 bd Administered Medications: 14:54 Drug: Potassium Chloride PO Liquid 40 mEq Route: PO; ph 15:04 Follow up: Response: No adverse reaction ph 14:55 Not Given (Patient Refused): NS 0.9% IV 500 ml IV at 1 bolus continuous ph 14:55 Not Given (Patient Refused): metoCLOPramide IVP 10 mg IVP once; over 1 to 2 minutes ph 14:55 Not Given (Patient Refused): diphenhydrAMINE IVP 12.5 mg IVP once ph Disposition Summary: 01/18/23 14:46 Discharge Ordered Location: Home bs3 Problem: new bs3 Symptoms: have improved bs3 Condition: Stable bs3 Diagnosis - Hypokalemia bs3 - Weakness bs3 Followup: bs3 - With: Olman Santiago, DO - When: 2 - 3 days - Reason: Re-evaluation by your physician Discharge Instructions: - Discharge Summary Sheet bs3 - Potassium Content of Foods bs3 - Hypokalemia bs3 Forms: - Medication Reconciliation Form bs3 - Thank You Letter bs3 Signatures: Dispatcher [employer] EDMS Floridalma Andrea Patricia, RN RN ph Rebecca Tavera RN RN ll1 Alon Richards MD MD bs3 Corrections: (The following items were deleted from the chart) 11:24 11:24 PMHx: Diabetes - NIDDM; ll1 ll1 11:46 11:40 She notes a mild frontal headache which causes dizzines, no blurry vision, her bs3 dizziness is worse with standing, she has no difficulty ambulating. No cp but she has left arm pain for several days as well. No abdominal pain, nausea, or vomiting. She tried motrin without sig relief. . bs3
--- NOTE | 2023-01-18 14:47 | ER ---
Nurse's Notes [facility] Name: Michael Kimball Age: 77 yrs Sex: Female : 1945 Arrival Date: 01/18/2023 Time: 10:48 Bed 7 Private MD: Olman Santiago Diagnosis: Hypokalemia;Weakness Presentation: 01/18 11:17 Chief complaint: Patient states: Frontal headache and dizziness x 2 days, also reports ph pain and tingling to L arm that started, " A few days ago". Coronavirus screen: Vaccine status: Patient reports receiving the 2nd dose of the covid vaccine. Ebola Screen: No symptoms or risks identified at this time. Initial Sepsis Screen: Does the patient meet any 2 criteria? No. Patient's initial sepsis screen is negative. Does the patient have a suspected source of infection? No. Patient's initial sepsis screen is negative. Risk Assessment: Do you want to hurt yourself or someone else? Patient reports no desire to harm self or others. Onset of symptoms was January 18, 2023. 11:17 Method Of Arrival: Wheelchair 11:17 Acuity: ANGELINA 3 ph Triage Assessment: 11:29 Headache History: Denies prior headaches. General: Appears in no apparent distress. ph comfortable, well groomed, Behavior is calm, cooperative, appropriate for age, Denies fever, fatigue. Pain: Complains of pain in forehead Pain does not radiate. Pain: Complains of pain in left arm Pain does not radiate. Neuro: Level of Consciousness is awake, alert, obeys commands, Oriented to person, place, time, situation, Moves all extremities. Gait is steady, Speech is normal, Facial symmetry appears normal, Reports dizziness, headache frontal area, paresthesias in left arm. Cardiovascular: Reports lightheadedness, Denies chest pain, Capillary refill < 3 seconds in bilateral fingers Patient's skin is warm and dry. Respiratory: Airway is patent Respiratory effort is even, unlabored. GI: No signs and/or symptoms were reported involving the gastrointestinal system. Derm: Skin is pink, warm \\T\\ dry. Musculoskeletal: Circulation, motion, and sensation intact. Range of motion: intact in all extremities. Historical: - Allergies: 11:24 BP meds that end with "prils"; ll1 11:24 Celecoxib; ll1 11:24 Cipro PO; ll1 11:24 Clarithromycin; ll1 11:24 Clindamycin; ll1 11:24 Codeine; ll1 11:24 Hydrocodone-Acetaminophen; ll1 11:24 Indomethacin; ll1 11:24 Naproxen; ll1 11:24 Prevpac; ll1 11:24 Propoxyphene N-Acetaminophen; ll1 11:24 tramadol; ll1 - Home Meds: 11:31 hydralazine 25 mg Oral tablet 2 times per day [Active]; Xarelto 20 mg oral tablet every ph evening [Active]; sotalol 80 mg Oral tablet 2 times per day [Active]; furosemide 40 mg Oral tab 1 tab once daily [Active]; nifedipine 30 mg Oral Tablet, Extended Release 24 hr daily [Active]; Vitamin D3 5,000 unit Oral tab daily [Active]; Vitamin C 1,000 mg Oral tab daily [Active]; magnesium oxide 400 mg Oral cap twice a day [Active]; flaxseed 1200 mg Oral twice a day [Active]; Acidophilus Oral daily [Active]; - PMHx: 11:24 Diabetes - IDDM; High Cholesterol; Hypertension; blood clot; ll1 - Immunization history:: Adult Immunizations unknown. - Social history:: Smoking status: Patient denies any tobacco usage or history of. Screenin:42 [facility] ED Fall Risk Assessment (Adult) History of falling in the last 3 months, ph including since admission No falls in past 3 months (0 pts) Confusion or Disorientation No (0 pts) Intoxicated or Sedated No (0 pts) Impaired Gait No (0 pts) Mobility Assist Device Used No (0 pt) Altered Elimination No (0 pt) Score/Fall Risk Level 0 - 2 = Low Risk Oriented to surroundings, Maintained a safe environment, Hourly rounding (assess needs \\T\\ fall precautionary measures) done. Abuse screen: Denies threats or abuse. Denies injuries from another. Nutritional screening: No deficits noted. Tuberculosis screening: No symptoms or risk factors identified. Assessment: 12:32 General: SEE TRIAGE ASSESSMENT. ph 14:37 Reassessment: No changes from previously documented assessment. Dr. Richards at . ll1 Vital Signs: 11:17 BP 163 / 93; Pulse 62; Resp 18; Temp 97.5(TE); Pulse Ox 100% on R/A; Weight 67.13 kg; ph Height 5 ft. 4 in. ; Pain 3/10; 12:32 BP 154 / 64; Pulse 63; Resp 18; Pulse Ox 100% on R/A; ph 15:04 BP 160 / 87; Pulse 64; Resp 18; Temp 98; Pulse Ox 99% on R/A; ph 11:17 Body Mass Index 25.40 (67.13 kg, 162.56 cm) ph 11:17 Pain Scale: Adult ph ED Course: 11:12 Patient arrived in ED. im 11:13 Olman Santiago DO is Private Physician. im 11:13 Alon Richards MD is Attending Physician. bs3 11:17 Tania Hankins, DELANO is Primary Nurse. ph 11:23 Arm band placed on Patient placed in an exam room, on a stretcher. ll1 11:29 Triage completed. ph 11:42 Patient has correct armband on for positive identification. Bed in low position. Call ph light in reach. Side rails up X 1. Client placed on continuous cardiac and pulse oximetry monitoring. NIBP monitoring applied. Door closed. Noise minimized. Warm blanket given. 11:52 CT Head Brain wo Cont In Process Unspecified. EDMS 11:59 XRAY Chest (1 view) In Process Unspecified. EDMS 12:15 Initial lab(s) drawn, by me, sent to lab. Missed attempt(s): 22 gauge in right hand. ph Bleeding controlled, band aid applied, catheter tip intact. 12:59 Missed attempt(s): 24 gauge in left hand. Bleeding controlled, band aid applied, ph catheter tip intact. Missed attempt(s): 24 gauge in left wrist. Bleeding controlled, band aid applied, catheter tip intact. 14:46 Olman Santiago DO is Referral Physician. bs3 15:04 No provider procedures requiring assistance completed. Patient did not have IV access ph during this emergency room visit. Administered Medications: 14:54 Drug: Potassium Chloride PO Liquid 40 mEq Route: PO; ph 15:04 Follow up: Response: No adverse reaction ph 14:55 Not Given (Patient Refused): NS 0.9% IV 500 ml IV at 1 bolus continuous ph 14:55 Not Given (Patient Refused): metoCLOPramide IVP 10 mg IVP once; over 1 to 2 minutes ph 14:55 Not Given (Patient Refused): diphenhydrAMINE IVP 12.5 mg IVP once ph Medication: 11:42 VIS not applicable for this client. ph Outcome: 14:46 Discharge ordered by . bs3 15:05 Discharged to home via wheelchair, with family. ph 15:05 Condition: good 15:05 Discharge instructions given to patient, Instructed on discharge instructions, follow up and referral plans. Demonstrated understanding of instructions, follow-up care. 15:05 Patient left the ED. ph Signatures: Dispatcher [employer] EDTania Hull RN RN ph Rebecca Tavera RN RN ll1 Alon Richards MD MD bs3 Nupur Watson Corrections: (The following items were deleted from the chart) 11:24 11:24 PMHx: Diabetes - NIDDM; ll1 ll1 13:00 12:32 BP 124 / 64; Pulse 63bpm; Resp 18bpm; Pulse Ox 100% RA; ph ph
[2023-01-18 15:15] VITALS: BP 163/93; TEMP 97.5; O2SAT 100
--- NOTE | 2023-01-20 07:12 | EKG ---
Test Date: 2023-01-18 Test Time: 11:40:19 Quality Assurance Representative: ELPIDIO MEASUREMENT RESULTS: Intervals: Rate: 65 FL: QRSD: 82 QT: 344 QTc: 357 [place]: P: FL: QRS: -12 T: 73 INTERPRETIVE STATEMENTS: Junctional rhythm Low voltage QRS Nonspecific ST and T wave abnormality Abnormal ECG Compared to ECG 12/03/2022 00:40:35 Junctional rhythm now present Atrial fibrillation no longer present Ventricular premature complex(es) no longer present ST (T wave) deviation still present Electronically Signed On 01-20-23 07:07:11 CDT by Juan Manuel Gordon
== END 2023-01-18 15:05 | disposition home or self-care (01) ==
LOC: ER 10:48
DX: E87.6 Hypokalemia (principal); R51.9 Headache, unspecified; E11.9 Type 2 diabetes mellitus without complications; I10 Essential (primary) hypertension; E78.00 Pure hypercholesterolemia, unspecified; Z79.01 Long term (current) use of anticoagulants; Z88.1 Allergy status to other antibiotic agents; Z88.3 Allergy status to other anti-infective agents; Z88.5 Allergy status to narcotic agent; Z88.8 Allergy status to other drugs, medicaments and biological substances
CPT/HCPCS: 36415; 70450; 71045; 80048; 84484; 85025; 93005; 99284

== ENCOUNTER 2024-11-20 13:12 | Emergency (ER) | payer OTHER ==
[2024-11-20 13:58] LABS: Absolute Eosinophils 0.1 K/uL (0-0.5); Absolute Lymphocytes (CBC) 1.6 K/uL (0.7-4.9); Absolute Monocytes 0.3 K/uL (0.1-1.3); Absolute Neutrophil 2.9 K/uL (1.8-8.0); Basophils % 0.7 % (0-1.3); Eosinophils % 1.3 % (0-4.4); Hematocrit 40.1 % (36.0-45.0); Hemoglobin 13.7 g/dL (12.0-15.0); Lymphocytes % 32.6 % (15.3-44.8); MCH 32.5 pg (27.0-35.0); MCHC 34.1 g/dL (32.0-36.0); MCV 95.5 fL (80-100); MPV 8.2 fL (7.6-11.3); Monocytes % 6.4 % (3.3-12.3); Platelets 161 thou/uL (152-406); Red Cell Distribution Width 13.5 % (12.1-15.2)
[2024-11-20 14:13] LABS: PT Prothrombin Time 23.4 SECONDS (10-13.0); Protime INR 2.13
[2024-11-20 14:16] LABS: Albumin 3.7 g/dL (3.4-5.0); Albumin/Globulin Ratio 1.1 (1.1-1.8); Anion Gap 5.9 mEq/L (5.0-15.0); Bilirubin Direct 0.2 mg/dL (0-0.2); Bilirubin Indirect, Calculated 0.6 mg/dL (0.2-0.8); Bilirubin Total 0.8 mg/dL (0.2-1.0); Globulin 3.4 g/dL (2.3-3.5); Magnesium 2.4 mg/dL (1.6-2.4); Potassium 3.9 mEq/L (3.5-5.1); Protein, Total 7.1 g/dL (6.4-8.2); Troponin High Sensitivity 9.2 pg/mL (<58.9)
--- NOTE | 2024-11-20 14:36 | RAD REPORT ---
EXAMINATION: Head Brain Wo Cont CLINICAL INDICATION: Female, 79 years old.DIZZINESS TECHNIQUE: Axial CT images from the skull base to the vertex without intravenous contrast. Coronal an d sagittal reformatted images were created from the data set. One or more of the following dose reduction techniques were used: Automated exposure control, adjustment of the mA and/or kV according to patient size, and/or iterative reconstruction. Unless otherwise specified, incidental findings do not require dedicated imaging follow-up. [id number]. COMPARISON: 01/18/2023 FINDINGS: INTRACRANIAL: No acute intracranial hemorrhage. No hydrocephalus. No mass effect or midline shift. No significant white matter disease.Mild cerebral atrophy. VASCULATURE: No visualized abnormalities in the arteries or dural venous sinuses. SCALP/SKULL: No calvarial fracture identified. No acute soft tissue abnormality. SINUSES: The visualized paranasal sinuses are mostly clear. No significant mastoid fluid. IMPRESSION: No acute intracranial abnormality.
--- NOTE | 2024-11-20 14:43 | ER ---
Nurse's Notes [facility] Name: Michael Kimball Age: 79 yrs Sex: Female : 1945 Arrival Date: 11/20/2024 Time: 13:12 Bed 14 Private MD: Diagnosis: Dizziness, near syncope Presentation: 11/20 13:25 Chief complaint: Patient states: Dizziness for 2 days. Stomach "bubbling" with some ll1 nausea also. No fever. Coronavirus screen: Client denies travel out of the [place] in the last 14 days. At this time, the client does not indicate any symptoms associated with coronavirus-19. Ebola Screen: Patient denies travel to an Ebola-affected area in the 21 days before illness onset. Initial Sepsis Screen: Does the patient meet any 2 criteria? No. Patient's initial sepsis screen is negative. Does the patient have a suspected source of infection? No. Patient's initial sepsis screen is negative. Risk Assessment: Do you want to hurt yourself or someone else? Patient reports no desire to harm self or others. Onset of symptoms was November 19, 2024. 13:25 Method Of Arrival: Ambulatory ll1 13:25 Acuity: ANGELINA 3 ll1 Triage Assessment: 13:27 General: Appears in no apparent distress. Behavior is calm, cooperative, appropriate ll1 for age, Reports fatigue for. Neuro: Reports dizziness. GI: Reports nausea. Historical: - Allergies: 13:19 Celecoxib; ll1 13:19 Clarithromycin; ll1 13:19 Clindamycin; ll1 13:19 Cipro PO; ll1 13:19 Hydrocodone-Acetaminophen; ll1 13:19 Codeine; ll1 13:19 Indomethacin; ll1 13:19 Naproxen; ll1 13:19 Prevpac; ll1 13:19 Propoxyphene N-Acetaminophen; ll1 13:19 tramadol; ll1 - PMHx: 13:19 blood clot; Hypertension; Diabetes - IDDM; High Cholesterol; ll1 - Immunization history:: Adult Immunizations up to date. - Infectious Disease History:: Denies. - Social history:: Smoking status: Patient denies any tobacco usage or history of. Screenin:25 [facility] ED Fall Risk Assessment (Adult) History of falling in the last 3 months, me1 including since admission No falls in past 3 months (0 pts) Confusion or Disorientation No (0 pts) Intoxicated or Sedated No (0 pts) Impaired Gait No (0 pts) Mobility Assist Device Used No (0 pt) Altered Elimination No (0 pt) Score/Fall Risk Level 0 - 2 = Low Risk Maintained a safe environment, Provided non-skid footwear, Hourly rounding (assess needs \\T\\ fall precautionary measures) done. Abuse screen: Denies threats or abuse. Nutritional screening: No deficits noted. Tuberculosis screening: No symptoms or risk factors identified. Assessment: 13:25 General: Appears in no apparent distress. well groomed, well developed, well nourished, me1 Behavior is calm, cooperative, appropriate for age, Reports Dizziness for 2 days. Stomach "bubbling" with some nausea also. No fever. Pain: Denies pain. Neuro: Level of Consciousness is awake, alert, obeys commands, Oriented to person, place, time, situation, Appropriate for age Reports dizziness. Cardiovascular: Patient's skin is warm and dry. Respiratory: Airway is patent Respiratory effort is even, unlabored, Respiratory pattern is regular, symmetrical. GI: Abdomen is non-distended, Reports nausea. : No signs and/or symptoms were reported regarding the genitourinary system. EENT: No signs and/or symptoms were reported regarding the EENT system. Derm: Skin is intact, is healthy with good turgor, Skin is pink, warm \\T\\ dry. Musculoskeletal: No signs and/or symptoms reported regarding the musculoskeletal system. Vital Signs: 13:25 BP 161 / 62; Pulse 52; Resp 17; Temp 98.4; Pulse Ox 100% ; Weight 71.21 kg; Height 5 ll1 ft. 4 in. ; Pain 0/10; 14:38 BP 148 / 64; Pulse 51; Resp 15; Temp 98.2; Pulse Ox 100% ; me1 13:25 Body Mass Index 26.95 (71.21 kg, 162.56 cm) ll1 13:25 Pain Scale: Adult ll1 ED Course: 13:18 Patient arrived in ED. mr 13:18 Arm band placed on. ll1 13:20 Micki Betancourt MD is Attending Physician. sp3 13:22 Tania Hankins RN is Primary Nurse. ph 13:25 Patient has correct armband on for positive identification. Bed in low position. Call me1 light in reach. Side rails up X2. Provided Education on: POC. Verbalized understanding.. Client placed on continuous cardiac and pulse oximetry monitoring. NIBP monitoring applied. brand planner on. Pulse ox on. NIBP on. 13:25 No provider procedures requiring assistance completed. me1 13:27 Triage completed. ll1 13:46 Basic Metabolic Panel Sent. me1 13:46 CBC with Diff Sent. me1 13:46 LFT's Sent. me1 13:46 Magnesium Sent. me1 13:46 NT PRO-BNP Sent. me1 13:46 PT-INR Sent. me1 13:46 Troponin HS Sent. me1 13:46 Initial lab(s) drawn, by me, sent to lab. Inserted saline lock: 22 gauge in left ia1 antecubital area, using aseptic technique. 13:56 EKG done, by ED staff, reviewed by Micki Betancourt MD. me1 14:22 CT Head Brain wo Cont In Process Unspecified. EDHI 14:35 Sunitha Varela, RN is Primary Nurse. me1 14:57 IV discontinued, intact, bleeding controlled, No redness/swelling at site. Pressure me1 dressing applied. Administered Medications: No medications were administered Medication: 13:25 VIS not applicable for this client. me1 Outcome: 14:42 Discharge ordered by . sp3 14:57 Discharged to home via wheelchair, me1 14:57 Condition: stable 14:57 Discharge instructions given to patient, Instructed on discharge instructions, follow up and referral plans. Demonstrated understanding of instructions, follow-up care, 14:58 Patient left the ED. me1 Signatures: Dispatcher [employer] EDHI Krystina Cason, Reg Reg mr HankinsTania, RN RN Rebecca Johnson RN RN ll1 Micki Betancourt MD MD sp3 Sunitha Varela, DELANO RN me1 Corrections: (The following items were deleted from the chart) 14:36 13:25 Chief complaint: Patient states: Dizziness for 2 days. Stomach "bubbling" with me1 some nausea also. No fever ll1 14:45 14:38 BP 148 / 64; Pulse 51bpm; Resp 15bpm; Pulse Ox 100%; me1 me1
--- NOTE | 2024-11-20 14:43 | EDPHYS ---
Physician Documentation [facility] Name: Michael Kimball Age: 79 yrs Sex: Female : 1945 Arrival Date: 11/20/2024 Time: 13:12 Bed 14 Private MD: ED Physician Micki Betancourt HPI: 11/20 13:52 This 79 yrs old Black Female presents to ER via Ambulatory with complaints of sp3 Dizziness, Nausea. 13:52 79-year-old female with history of hypertension, diabetes, atrial fibrillation sp3 currently on Xarelto presents to the ED with chief complaint off and on near syncope and dizziness for the last week. Patient states her doctor has been wanting her to get a head CT and today she presents for recurrent symptoms seeking set CT scan. She denies any other associated symptoms including vertigo, fever, trauma, headache, neck pain, chest pain, shortness of breath, palpitations, bleeding, or any other signs or symptoms on ROS at this time.. Historical: - Allergies: 13:19 Celecoxib; ll1 13:19 Clarithromycin; ll1 13:19 Clindamycin; ll1 13:19 Cipro PO; ll1 13:19 Hydrocodone-Acetaminophen; ll1 13:19 Codeine; ll1 13:19 Indomethacin; ll1 13:19 Naproxen; ll1 13:19 Prevpac; ll1 13:19 Propoxyphene N-Acetaminophen; ll1 13:19 tramadol; ll1 - PMHx: 13:19 blood clot; Hypertension; Diabetes - IDDM; High Cholesterol; ll1 - Immunization history:: Adult Immunizations up to date. - Infectious Disease History:: Denies. - Social history:: Smoking status: Patient denies any tobacco usage or history of. ROS: 13:53 Constitutional: Negative for fever, chills, and weight loss, Eyes: Negative for injury, sp3 pain, redness, and discharge, Neck: Negative for injury, pain, and swelling, Respiratory: Negative for shortness of breath, cough, wheezing, and pleuritic chest pain, Abdomen/GI: Negative for abdominal pain, nausea, vomiting, diarrhea, and constipation, Back: Negative for injury and pain, MS/Extremity: Negative for injury and deformity, Skin: Negative for injury, rash, and discoloration, Psych: Negative for depression, anxiety, suicide ideation, homicidal ideation, and hallucinations, Allergy/Immunology: Negative for hives, rash, and allergies, Endocrine: Negative for neck swelling, polydipsia, polyuria, polyphagia, and marked weight changes, Hematologic/Lymphatic: Negative for swollen nodes, abnormal bleeding, and unusual bruising, 13:53 All other systems are negative, Exam: 13:53 Constitutional: This is a well developed, well nourished patient who is awake, alert, sp3 and in no acute distress. Head/Face: Normocephalic, atraumatic. Eyes: Pupils equal round and reactive to light, extra-ocular motions intact. Lids and lashes normal. Conjunctiva and sclera are non-icteric and not injected. Cornea within normal limits. Periorbital areas with no swelling, redness, or edema. ENT: Nares patent. No nasal discharge, no septal abnormalities noted. External auditory canals are clear. Oropharynx with no redness, swelling, or masses, exudates, or evidence of obstruction, uvula midline. Mucous membranes moist. Neck: Trachea midline, no thyromegaly or masses palpated, and no cervical lymphadenopathy. Supple, full range of motion without nuchal rigidity, or vertebral point tenderness. No Meningismus. Chest/axilla: Normal chest wall appearance and motion. Nontender with no deformity. No lesions are appreciated. Cardiovascular: Regular rate and rhythm with a normal S1 and S2. No gallops, murmurs, or rubs. Normal PMI, no JVD. No pulse deficits. Respiratory: Lungs have equal breath sounds bilaterally, clear to auscultation and percussion. No rales, rhonchi or wheezes noted. No increased work of breathing, no retractions or nasal flaring. Abdomen/GI: Soft, non-tender, with normal bowel sounds. No distension or tympany. No guarding or rebound. No evidence of tenderness throughout. Back: No spinal tenderness. No costovertebral tenderness. Full range of motion. Skin: Warm, dry with normal turgor. Normal color with no rashes, no lesions, and no evidence of cellulitis. MS/ Extremity: Pulses equal, no cyanosis. Neurovascular intact. Full, normal range of motion. Neuro: Awake and alert, GCS 15, oriented to person, place, time, and situation. Cranial nerves II-XII grossly intact. Motor strength 5/5 in all extremities. Sensory grossly intact. Cerebellar exam normal. Normal gait. Psych: Awake, alert, with orientation to person, place and time. Behavior, mood, and affect are within normal limits. 14:02 ECG was reviewed by the Attending Physician. EKG demonstrates atrial fibrillation with sp3 ventricular response of 53 bpm with normal axis, normal QRS, nonspecific diffuse ST/T changes without evidence of acute ischemia. Vital Signs: 13:25 BP 161 / 62; Pulse 52; Resp 17; Temp 98.4; Pulse Ox 100% ; Weight 71.21 kg; Height 5 ll1 ft. 4 in. ; Pain 0/10; 14:38 BP 148 / 64; Pulse 51; Resp 15; Temp 98.2; Pulse Ox 100% ; me1 13:25 Body Mass Index 26.95 (71.21 kg, 162.56 cm) ll1 13:25 Pain Scale: Adult ll1 MDM: 13:26 Medical Screening Exam initiated sp3 13:53 Data reviewed: vital signs, nurses notes, lab test result(s), EKG, radiologic studies. sp3 ED course: 79-year-old female with vague symptoms of a now resolved dizziness. Differential diagnosis close viral illness, benign vertigo, intracranial pathology, dehydration, among others. I am not highly suspicious of TIA/CVA spectrum, ACS, sepsis, shock, PE, TAD, or any other critical process at this time. Workup will include CT scan of the head, EKG, general labs and general supportive care. Disposition pending workup patient course.. 14:41 ED course: Full workup negative including CT head. Patient in no acute distress and sp3 symptoms have resolved. We will safely discharge home with PCP follow-up.. 11/20 13:32 Order name: Basic Metabolic Panel; Complete Time: 14:19 sp3 11/20 13:32 Order name: CBC with Diff; Complete Time: 14:02 sp3 11/20 13:32 Order name: LFT's; Complete Time: 14:19 sp3 11/20 13:32 Order name: Magnesium; Complete Time: 14:19 sp3 11/20 13:32 Order name: NT PRO-BNP; Complete Time: 14:19 sp3 11/20 13:32 Order name: PT-INR; Complete Time: 14:19 sp3 11/20 13:32 Order name: Troponin HS; Complete Time: 14:19 sp3 11/20 13:32 Order name: CT Head Brain wo Cont; Complete Time: 14:41 sp3 11/20 13:32 Order name: Cardiac monitoring; Complete Time: 13:56 sp3 11/20 13:32 Order name: EKG - Nurse/Tech; Complete Time: 13:56 sp3 11/20 13:32 Order name: IV Saline Lock; Complete Time: 13:46 sp3 11/20 13:32 Order name: Labs collected and sent; Complete Time: 13:46 sp3 11/20 13:32 Order name: O2 Sat Monitoring; Complete Time: 13:46 sp3 Administered Medications: No medications were administered Disposition Summary: 11/20/24 14:42 Discharge Ordered Notes: Location: Home sp3 Condition: Stable sp3 Diagnosis - Dizziness, near syncope sp3 Followup: sp3 - With: Private Physician - When: Upon discharge from the Emergency Department - Reason: Continuance of care Discharge Instructions: - Discharge Summary Sheet sp3 - Dizziness sp3 Forms: - Medication Reconciliation Form sp3 - Antibiotic Education sp3 - Prescription Opioid Use sp3 - Patient Portal Instructions sp3 - Leadership Thank You Letter sp3 Signatures: Dispatcher [employer] EDRebecca Espinosa RN RN ll1 Micki Betancourt MD MD sp3 Sunitha Varela RN RN me1 Corrections: (The following items were deleted from the chart) 13:33 13:33 BASIC METABOLIC PANEL+C.LAB.BRZ ordered. EDMS EDMS 13:33 13:33 CBC+H.LAB.BRZ ordered. EDMS EDMS 13:33 13:33 HEPATIC FUNCTION+C.LAB.BRZ ordered. EDMS EDMS 13:33 13:33 MAGNESIUM+C.LAB.BRZ ordered. EDMS EDMS 13:33 13:33 PROBNP+C.LAB.BRZ ordered. EDMS EDMS 13:33 13:33 PROTIME (+INR)+COAG.LAB.BRZ ordered. EDMS EDMS 13:33 13:33 Troponin High Sensitivity+C.LAB.BRZ ordered. EDMS EDMS 13:33 13:33 Head Brain Wo Cont+CT.RAD.BRZ ordered. EDMS EDMS
[2024-11-20 15:27] VITALS: O2SAT 100
[2024-11-20 15:33] VITALS: BP 148/64; TEMP 98.2
--- NOTE | 2024-11-21 12:20 | EKG ---
Test Date: 2024-11-20 Test Time: 13:52:46 Senior Consultant: MEASUREMENT RESULTS: Intervals: Rate: 53 LA: 196 QRSD: 80 QT: 454 QTc: 426 [place]: P: 60 LA: 196 QRS: 20 T: 28 INTERPRETIVE STATEMENTS: Sinus bradycardia with marked sinus arrhythmia Low voltage QRS Nonspecific T wave abnormality Abnormal ECG Compared to ECG 01/18/2023 11:40:19 T-wave abnormality now present Junctional rhythm no longer present ST (T wave) deviation no longer present Electronically Signed On 11-21-24 12:18:33 CDT by Maico Montano
== END 2024-11-20 14:58 | disposition home or self-care (01) ==
LOC: ER 13:12
DX: R55 Syncope and collapse (principal); E11.9 Type 2 diabetes mellitus without complications; I10 Essential (primary) hypertension; I48.91 Unspecified atrial fibrillation; Z79.01 Long term (current) use of anticoagulants
CPT/HCPCS: 36415; 70450; 80048; 80076; 83735; 83880; 84484; 85025; 85610; 93005; 99284